=== PATIENT | female | born 1990 | race Hispanic/Latino ===

== ENCOUNTER 2018-09-25 12:25 | Emergency (ER) | payer MEDICAID, OTHER ==
[2018-09-25] MEDS ORDERED: ONDANSETRON HCL 4 MG/2 ML VIAL ONE ×2 (12:49→14:04)
[2018-09-25] MEDS ORDERED: FAMOTIDINE/PF 20 MG/2 ML VIAL IV ONE (12:49)
[2018-09-25] MEDS ORDERED: SODIUM CHLORIDE 0.9% 1000ML 1,000 ML IV ONE (12:49)
[2018-09-25 12:58] LABS: CREATININE 0.7 mg/dL (0.5-1.5); POTASSIUM 3.8 mmol/L (3.5-5.1)
[2018-09-25 13:03] LABS: BILIRUBIN,TOTAL 0.3 mg/dL (0.2-1.0); TOTAL PROTEIN, SERUM 8.3 g/dL (6.0-8.3)
[2018-09-25 13:04] LABS: APPEARANCE,URINE Clear (CLEAR); BILIRUBIN,URINE Negative (NEGATIVE); COLOR,URINE Yellow (YELLOW); GLUCOSE, URINE (UA) Negative (NEGATIVE); KETONES,URINE >=160 mg/dL (NEGATIVE); LEUKOCYTE ESTERASE ,URINE Negative (NEGATIVE); NITRATE,URINE Negative (NEGATIVE); OCCULT BLOOD,URINE Negative (NEGATIVE); PH,URINE 6.5 (5.0-8.0); PROTEIN,URINE POS 1+ (NEGATIVE)
[2018-09-25 13:15] LABS: HCG,QUAL RESULT NEGATIVE (NEGATIVE)
[2018-09-25 13:26] LABS: BASOPHILS % (AUTO) 0.4 % (0.0-5.0); EOSINOPHILS % (AUTO) 0.1 % (0.0-8.0); HEMATOCRIT 39.1 % (36-48); LYMPHOCYTES % (AUTO) 10.6 % (21.0-51.0); MEAN CORPUSCULAR HEMOGLOBIN 29.8 pg (27.0-33.0); MEAN CORPUSCULAR HGB CONC 33.8 g/dL (32.0-36.0); MEAN CORPUSCULAR VOLUME 88.1 fL (79-99); MONOCYTES % (AUTO) 2.3 % (3.0-13.0); NEUTROPHILS % (AUTO) 86.6 % (40.0-77.0); PLATELET COUNT (AUTO) 330 K/uL (130-400); RED BLOOD CELL COUNT(AUTO) 4.44 MIL/uL (4.00-5.50); RED CELL DISTRIBUTION WIDTH 12.1 % (11.0-15.5); WHITE BLOOD COUNT (AUTO) 13.9 K/uL (4.8-10.8)
[2018-09-25 13:48] LABS: BACTERIA,URINE Rare /HPF (None Seen); MUCUS,URINE Few LPF (None Seen); RBC,URINE 0-1 /HPF (0-1); SQUAMOUS EPITHELIAL CELL,UR Rare /HPF (0-2); WBC,URINE 0-1 /HPF (0-1)
[2018-09-25] MEDS ORDERED: HYOSCYAMINE SULFATE 0.125 MG TAB.SUBL SL ONE (14:05)
== END 2018-09-25 14:37 | disposition home or self-care (01) ==
LOC: EDH 12:25
DX: K52.9 Noninfective gastroenteritis and colitis, unspecified (principal)
CPT/HCPCS: 36415; 80053; 81001; 81025; 83690; 85025; 96361; 96374; 96375; 96376; 99284; J2405 ×2; J3490; J7030

== ENCOUNTER 2024-12-23 08:42 | Emergency (ER) | payer SELFPAY ==
[~2024-12-23] VITALS: Ht 157.5 cm; Wt 81.2 kg
--- NOTE | 2024-12-23 10:34 | ERN ---
ED Note History of Present Illness Stated Complaint: HEADACHE Chief Complaint: Headache Time Seen by MD: 09:39 Dictation: PATIENT IS A 34-YEAR-OLD FEMALE COMING IN TODAY WITH COMPLAINTS OF A GENERALIZED HEADACHE SHE HAS HAD FOR SEVERAL DAYS. SHE HAS HAD NAUSEA NO VOMITING DENIES FEVER CHILLS. NIH IS 0. NO PRIMARY CARE DOCTOR STATES SHE TOOK TYLENOL LAST NIGHT FOR PAIN AT 10:00 O'CLOCK IN THE EVENING. Allergies: Coded Allergies: No Known Drug Allergies (Unverified Allergy, Unknown, 12/23/24) Past Medical History Past Medical History: No Pertinent History Surgical History: History: Not Applicable RN Note Reviewed/Agreed w/PFSH: Yes Review of System Dictation CONSTITUTIONAL: NEGATIVE EXCEPT FOR HPI HEAD/FACE: NEGATIVE EXCEPT FOR HPI EENT: NEGATIVE EXCEPT FOR HPI RESPIRATORY: NEGATIVE EXCEPT FOR HPI GASTROINTESTINAL/ABDOMINAL: NEGATIVE EXCEPT FOR HPI GENITOURINARY: NEGATIVE EXCEPT FOR HPI MUSCULOSKELETAL: NEGATIVE EXCEPT FOR HPI INTEGUMENTARY: NEGATIVE EXCEPT FOR HPI NEUROLOGICAL/PSYCH: NEGATIVE EXCEPT FOR HPI HEADACHE HEMATOLOGIC/LYMPHATIC: NEGATIVE EXCEPT FOR HPI ALL SYSTEMS NEGATIVE, EXCEPT NOTED ABOVE. 13 POINT REVIEW OF SYSTEMS ASSESSED AND ALL NEGATIVE EXCEPT FOR ABOVE. Initial Vital Sign VS Vital Signs Date Time Temp Pulse Resp B/P (MAP) Pulse Ox O2 Delivery O2 Flow Rate FiO2 12/23/24 08:43 98.2 75 16 135/77 99 Room Air 12/23/24 10:09 0 21 Physical Exam Dictation VITAL SIGNS REVIEWED GENERAL APPEARANCE: ALERT, ORIENTED X 3, MILD ACUTE DISTRESS, WELL DEVELOPED, NOURISHED. HEAD AND FACE: NON-TRAUMATIC. EYES: PERRL, PINK CONJUNCTIVAS, EYELID NO TRAUMA, ANTERIOR CHAMBER WITH ARCUS SENILIS. EARS: PINNAS INTACT AND NO SIGNS OF TRAUMA OR ERYTHEMA EAR CANALS CLEAR AND NO DISCHARGE TM NO ERYTHEMA NOSE: NO DISCHARGE, NO BLEEDING. OROPHARYNX: MOUTH NORMAL, TONGUE PINK, PHARYNX CLEAR,NO ERYTHEMA, TONSILS NO EXUDATES, NO ABSCESSES NOTED, MUCOUS MEMBRANE MOIST NECK: SUPPLE, NON-TENDER, NO THYROMEGALY, NO MASSES, NO JVD, NO BRUITS BREAST:DEFERRED CHEST:NO TENDERNESS, NO CREPITUS, NO PARADOXICAL MOVEMENT, NO RETRACTIONS LUNGS:CLEAR, WELL-VENTILATED, SYMMETRIC, NO RALES, NO WHEEZING, NO RHONCHI, NO ST NIH RIDOR, GOOD BREATH SOUNDS BILATERALLY HEART: REGULAR RATE, REGULAR RHYTHM, NO MURMUR, NO GALLOPS VASCULAR: NO PERIPHERAL EDEMA, ABDOMEN: SOFT, POSITIVE BOWEL SOUNDS, NONDISTENDED, NO GUARDING, NONTENDER, NO REBOUND, NO MASSES NO HEPATOMEGALY, NO SPLENOMEGALY, NO TSE'S SIGN, NO HERNIAS. RECTAL: DEFERRED GENITAL: DEFERRED NEUROLOGICAL: NORMAL SPEECH, MOTOR FUNCTION INTACT, SENSORY FUNCTION INTACT NIH IS 0 MUSCULOSKELETAL: NECK NONTENDER, FULL RANGE OF MOTION, BACK NONTENDER, FULL RANGE OF MOTION, EXTREMITIES: NONTENDER, FULL RANGE OF MOTION SKIN: COLOR PINK, DRY, NO TURGOR, NO RASH, NO LACERATIONS, NO ABRASIONS, NO CONTUSIONS. LYMPHATIC: DEFERRED Results (Laboratory/Radiology) Labs Reviewed?: Yes ED Course ED Course Orders Procedure Category Date Status Time Acetaminophen 500mg PHA 12/23/24 Complete Tab (Tylenol 500mg T 11:00 Dexamethasone 4mg/Ml PHA 12/23/24 Complete 1ml Vial (Dexametha 11:00 Cyclobenzaprine Hcl PHA 12/23/24 Complete (Cyclobenzaprine Hcl 11:00 Current Medications Medications (Trade) Dose Ordered Sig/Tess Route PRN Reason Start Time Stop Time Status Last Admin Dose Admin Acetaminophen (TYLenol 500MG TAB) 1,000 mg ONCE ONCE PO 12/23/24 11:00 12/23/24 11:01 DC 12/23/24 10:54 Cyclobenzaprine HCl (Cyclobenzaprine HCl) 10 mg ONCE ONCE PO 12/23/24 11:00 12/23/24 11:01 DC 12/23/24 10:54 Dexamethasone Sodium Phosphate (dexaMETHasone 4MG/ML 1ML VIAL) 4 mg ONCE ONCE IM 12/23/24 11:00 12/23/24 11:01 DC 12/23/24 10:54 Vital Signs Date Time Temp Pulse Resp B/P (MAP) Pulse Ox O2 Delivery O2 Flow Rate FiO2 12/23/24 10:09 98.8 87 20 131/62 100 Room Air* 0 21 12/23/24 08:43 98.2 75 16 135/77 99 Room Air 1105, PATIENT WILL BE TREATED EMPIRICALLY FOR TENSION HEADACHE. SHE WILL BE DISCHARGED HOME WITH FIORICET AND WAS GIVEN A LIST OF DOCTORS TO FOLLOW UP OUTPATIENT. Medical Decision Making MDM MEDICAL DISCHARGE MAKING BASED ON EMPIRIC TREATMENT FOR ACUTE TENSION HEADACHE. PATIENT WILL BE DISCHARGED HOME WITH FIORICET AND NEUROLOGICALLY INTACT WITH [facility] OF 0. SHE WAS GIVEN A LIST OF THE LOCAL PRIMARY CARE DOCTORS ON STAFF TO FOLLOW UP DX & DISP Disposition: Discharge Departure Impression: Primary Impression: Tension headache Condition: Stable Scripts Butalb/Acetaminophen/Caffeine (Esgic 50-325-40 mg Tablet) 50 Mg-325 Mg-40 Mg Tablet 2 TAB PO Q4H for HEADACHE, #20 TAB 0 Refills TAKE TWO TABLETS BY MOUTH EVERY4 HOURS P.R.N. HEADACHE, MAXIMUM SIX TABLETS IN24 HOURS. Prov: BLANCA ESCOBEDO NP 12/23/24 Additional Instructions: FOLLOW-UP WITH PRIMARY CARE PROVIDER IN 1 TO 2 DAYS. TAKE MEDICATIONS DIRECTED HERE IN THE EMERGENCY ROOM. OKAY TO CONTINUE HOME MEDICATIONS UNLESS OTHERWISE DISCUSSED DURING YOUR VISIT IN THE EMERGENCY ROOM TODAY. RETURN TO YOUR NEAREST EMERGENCY ROOM IF SYMPTOMS WORSEN OR IF THERE IS NO IMPROVEMENT. CALL 911 IF YOU NEED IMMEDIATE ASSISTANCE. TAKE TYLENOL OR MOTRIN [id number] TER NEEDED AND IF NO CONTRAINDICATIONS ARE PRESENT. INCREASE ORAL HYDRATION. A WOUND CULTURE OR URINE CULTURE WAS ORDERED HERE IN THE EMERGENCY ROOM DEPARTMENT PLEASE FOLLOW-UP WITH PRIMARY CARE PROVIDER AND ADVISE THEM TO GET REPEAT PORTS FROM OUR FACILITY. IF YOU HAD ANY JOSIE WRAP/SPLINTS THAT WERE APPLIED HERE, PLEASE DO NOT REMOVE THEM UNTIL YOU SEE YOUR PRIMARY CARE OR SP ECIALTY. TAKE MEDICATIONS DIRECTED FOR YOUR HEADACHE. , FOLLOW UP WITH ONE OF THE DOCTORS ON THE LIST PROVIDED YOU IN THE NEXT 2-3 DAYS. Referrals: SELF,REFERRAL (PCP) Time of Disposition: 11:08 I have reviewed the case, and I agree with, Diagnosis and Plan BLANCA ESCOBEDO NP Dec 23, 2024 10:34
[2024-12-23] MEDS: CYCLOBENZAPRINE HCL 10 MG TABLET PO ONE (10:54)
[2024-12-23] MEDS: dexaMETHasone SOD PHOSPHATE 4 MG/ML 1ML VIAL IM ONE (10:54)
[2024-12-23] MEDS: acetaMINOPHEN 500 MG TABLET PO ONE (10:54)
[2024-12-23] MEDS ORDERED: BUTA-271 PO (11:09)
[2024-12-23 11:21] VITALS: BP 136/63; PULSE 86; RESP 20; TEMP 98.8; O2SAT 99
== END 2024-12-23 11:28 | disposition home or self-care (01) ==
LOC: EDH 08:42
DX: G44.209 Tension-type headache, unspecified, not intractable (principal)
CPT/HCPCS: 99283; 96372; J1100

== ENCOUNTER 2025-10-27 08:59 | Inpatient (IN) | payer SELFPAY ==
[~2025-10-27] VITALS: Ht 157.5 cm; Wt 82.6 kg
[2025-10-27] MEDS ORDERED: LIDOCAINE 5% TOPICAL PATCH TP STA (09:08)
[2025-10-27 09:34] LABS: IMMATURE GRANULOCYTE ABSOLUTE 0.01 K/uL (0-1); NUCLEATED RED BLOOD CELLS 0.0 % (0.0-0.19); PLATELET COUNT (AUTO) 270 K/uL (130-400); RED BLOOD CELL COUNT(AUTO) 4.47 MIL/uL (4.00-5.50); RED CELL DISTRIBUTION WIDTH 12.3 % (11.0-15.5); WHITE BLOOD COUNT (AUTO) 8.5 K/uL (4.8-10.8)
[2025-10-27 09:54] LABS: ERYTHROCYTE SEDIMENTATION RATE 13 MM/HR (0-20)
[2025-10-27 10:15] LABS: CREATINE KINASE, TOTAL 83.0 U/L (21-232); CREATININE 0.7 mg/dL (0.5-1.0); GLOMERULAR FILTR. RATE CALC 114.0 mL/min (>90); GLUCOSE,RANDOM 99.0 mg/dL (70-105); SODIUM SERUM 139.0 mmol/L (136-145); UREA NITROGEN, BLOOD 11.0 mg/dL (7-18)
--- NOTE | 2025-10-27 10:24 | ERN ---
ED Note History of Present Illness Stated Complaint: LEFT LOWER EXTREMITY Chief Complaint: Lower Extremity Pain/Injury Time Seen by MD: 09:00 Dictation: 35-year-old female with no past medical history presenting to the emergency department with left lower extremity pain and swelling, patient reports that few weeks ago back she hit herself with the metal cleaning broom, and symptoms have been getting worsens was seen here for the same a few days ago however the symptoms have now worsened. Allergies: Coded Allergies: No Known Drug Allergies (Unverified Allergy, Unknown, 12/23/24) Home Meds Active Scripts Naproxen (Naproxen) 500 Mg Tablet, 1 TAB PO BID for pain for 7 Days, #14 TAB 0 Refills Prov:SINAN KENNY MD 10/18/25 Methocarbamol (Robaxin) 750 Mg Tab, 1 TAB PO BID for 7 Days, #14 TAB 0 Refills Prov:SINAN KENNY MD 10/18/25 Butalb/Acetaminophen/Caffeine (Esgic 50-325-40 mg Tablet) 50 Mg-325 Mg-40 Mg Tablet, 2 TAB PO Q4H for HEADACHE, #20 TAB 0 Refills TAKE TWO TABLETS BY MOUTH EVERY4 HOURS P.R.N. HEADACHE, MAXIMUM SIX TABLETS IN24 HOURS. Prov:BLANCA ESCOBEDO 12/23/24 Past Medical History Past Medical History: No Pertinent History Surgical History: History: Not Applicable Review of System Dictation Constitutional: Negative for fever,chills, and weight loss Eyes: Negative for injury, pain,redness, and discharge ENT: Negative for injury,pain or swelling Cardiovascular: Negative for chest pain, palpitations, and edema Respiratory: Negative for shortness of breath, cough, and wheezing, Abdomen/GI: Negative for abdominal pain, nausea, vomiting, diarrhea, and constipation Back: Negative for injury and pain : Negative for injury, bleeding and discharge MS/Extremity: Per HPI Skin: Per HPI Neuro: Negative for headache, weakness, numbness, tingling, and seizure Psych: Negative for suicide ideation, homicidal ideation, and hallucinations Initial Vital Sign VS Vital Signs Date Time Temp Pulse Resp B/P (MAP) Pulse Ox O2 Delivery O2 Flow Rate FiO2 10/27/25 09:01 97.5 85 16 152/85 99 Room Air 0 10/27/25 09:30 21 Physical Exam Dictation General: awake, alert, NAD Head/Face: Normocephalic, atraumatic Eyes: PERRL, EOMI, vision at baseline ENT: oral cavity clear, TMs clear, no signs of infection Neck: Trachea midline, supple, no nuchal rigidity Cardiovascular: RRR, normal S1/S2, No MRGs, no JVD Respiratory: CTAB, no respiratory distress, No rales or wheezes Abdomen: Soft, non-tender, non-distended, normal bowel sounds, no guarding or rebound. Skin: Warm, dry, normal turgor, no rash, erythema to the left lower extremity MS/Extremity: Pulses equal, no cyanosis, neurovascular intact, FROM , left lower extremity is edematous and swollen, 2+ pulses compartments soft Neuro: COAx4, GCS 15, strength 5/5, CN 2-12 intact, normal cerebellar exam, normal gait, Psych: Normal behavior, mood, and affect normal Results (Laboratory/Radiology) Laboratory/Radiology Laboratory Tests Test 10/27/25 09:25 10/27/25 09:45 White Blood Count 8.5 K/uL (4.8-10.8) Red Blood Count 4.47 MIL/uL (4.00-5.50) Hemoglobin 13.2 g/dL (12.0-16.0) Hematocrit 40.6 % (36-48) Mean Corpuscular Volume 90.8 fL (79-99) Mean Corpuscular Hemoglobin 29.5 pg (27.0-33.0) Mean Corpuscular Hemoglobin Concent 32.5 g/dL (32.0-36.0) Red Cell Distribution Width 12.3 % (11.0-15.5) Platelet Count 270 K/uL (130-400) Mean Platelet Volume 8.8 fL (7.5-10.5) Immature Granulocyte % (Auto) 0.1 % (0-1) Neutrophils (%) (Auto) 68.5 % (40.0-77.0) Lymphocytes (%) (Auto) 24.0 % (21.0-51.0) Monocytes (%) (Auto) 3.7 % (3.0-13.0) Eosinophils (%) (Auto) 2.9 % (0.0-8.0) Basophils (%) (Auto) 0.8 % (0.0-5.0) Neutrophils # (Auto) 5.8 K/uL (1.8-7.7) Lymphocytes # (Auto) 2.0 K/uL (1.0-4.8) Monocytes # (Auto) 0.3 K/uL (0.1-1.0) Eosinophils # (Auto) 0.25 K/uL (0.00-0.70) Basophils # (Auto) 0.07 K/uL (0.00-0.20) Absolute Immature Granulocyte (auto 0.01 K/uL (0-1) Nucleated Red Blood Cells 0.0 % (0.0-0.19) Erythrocyte Sedimentation Rate 13 MM/HR (0-20) Sodium Level 139 mmol/L (136-145) Potassium Level 4.1 mmol/L (3.5-5.1) Chloride Level 106 mmol/L (101-111) Carbon Dioxide Level 25 mmol/L (21-32) Blood Urea Nitrogen 11 mg/dL (7-18) Creatinine 0.7 mg/dL (0.5-1.0) Glomerular Filtration Rate Calc 114 mL/min (>90) Random Glucose 99 mg/dL (70-105) Lactic Acid Level 1.2 mmol/L (0.8-2.5) Total Calcium 8.6 mg/dL (8.5-10.1) Total Creatine Kinase 83 U/L (21-232) Troponin I High Sensitivity 21 ng/L (4-50) C-Reactive Protein, Quantitative 12.40 mg/L (0.5-3.0) H Labs Reviewed?: Yes EKG: (+) NSR, (+) rhythm, (+) nonspecific ST T wave chg, (+) unchanged ED Course ED Course Orders Procedure Category Date Status Time Urinalysis Profile LAB 10/27/25 Logged 09:08 ,Urine Test LAB 10/27/25 Logged 09:08 Lidocaine (Lidoderm PHA 10/27/25 Complete Patch 5%) 09:08 Ketorolac PHA 10/27/25 Complete Tromethamine 30mg/Ml 09:30 Erythrocyte Sed Rate LAB 10/27/25 Complete 09:15 Blood Cult DARYA 10/27/25 In Process 09:15 Cbc With Differential LAB 10/27/25 Complete 09:15 Ceftriaxone 2gm Vial PHA 10/27/25 Complete (Rocephin 2gm Inj) 09:15 Vancomycin 1g/250ml PHA 10/27/25 Complete Kit (Vancomycin 1g/2 09:15 Us Venous Doppler US 10/27/25 Resulted Unilateral 09:15 Morphine 4mg Syg PHA 10/27/25 Complete (Morphine 4mg Syg) 09:17 Ondansetron 4mg Inj PHA 10/27/25 Complete (Zofran 4mg Inj) 09:17 Basic Metabolic Panel LAB 10/27/25 Complete 09:37 Creatine Kinase, Total LAB 10/27/25 Complete 09:37 Crp Quantitative LAB 10/27/25 Complete 09:37 Lactic Acid LAB 10/27/25 Complete 09:37 Pt And Ptt LAB 10/27/25 Logged 09:49 12 Lead Ekg Tracing- EKG 10/27/25 Logged Technical 10:25 Troponin I High LAB 10/27/25 Complete Sensitivity 10:25 Enoxaparin Sodium 80 PHA 10/27/25 Complete Mg/0.8 Ml (Lovenox 10:25 Current Medications Medications (Trade) Dose Ordered Sig/Tess Route PRN Reason Start Time Stop Time Status Last Admin Dose Admin Ceftriaxone Sodium (Rocephin 2gm Inj) 2 gm ONCE STAT IVPB 10/27/25 09:15 10/27/25 09:18 DC 10/27/25 09:52 Enoxaparin Sodium (Lovenox 80mg) 80 mg ONCE STAT SQ 10/27/25 10:25 10/27/25 10:29 DC Ketorolac Tromethamine (toRADol) 30 mg ONCE ONCE IM 10/27/25 09:30 10/27/25 09:16 DC Lidocaine (Lidoderm Patch 5%) 1 patch ONCE STAT TP 10/27/25 09:08 10/27/25 09:16 DC Morphine Sulfate (morPHINE 4MG SYG) 4 mg ONCE STAT IVP 10/27/25 09:17 10/27/25 09:19 DC 10/27/25 09:52 Ondansetron HCl (zoFRAN 4MG INJ) 4 mg ONCE STAT IVP 10/27/25 09:17 10/27/25 09:19 DC 10/27/25 09:51 Vancomycin HCl (Vancomycin 1g/ 250ml Kit) 1 gm ONCE STAT IV 10/27/25 09:15 10/27/25 09:19 DC 10/27/25 10:53 Vital Signs Date Time Temp Pulse Resp B/P (MAP) Pulse Ox O2 Delivery O2 Flow Rate FiO2 10/27/25 09:30 98.4 72 18 145/89 100 Room Air* 0 21 10/27/25 09:01 97.5 85 16 152/85 99 Room Air 0 Medical Decision Making MDM MDM: Differential diagnosis: Rationale: Tests considered and ordered secondary to shared decision making include: labs, ECG and radiology Previous outside records reviewed: Old ER visits. Risk of complication and/or morbidity or mortality of patient management: None Medications-Per medication reconciliation Need for hospitalization: Patient does meet criteria for hospitalization. Need for emergency major/minor surgery: No There are no social concerns with this patient. Prescription drug management Prescriptions will include symptomatic care Patient's prior external medical records from other ER visits were reviewed by me as indicated. Prior testing and results from previous visits were reviewed. Prior tests were taken into account with medical decision making and resource utilization, independent historian/historians were used to obtain complete medical history. I independently interpreted the test that were performed, results were reviewed by me and considered findings on radiology if ordered. Medical management and examination interpretation discussions were had by me w ith other qualified healthcare professionals as indicated for the patient's care. 35-year-old female with left lower extremity DVT, we will placed on Lovenox and admit further care and evaluation currently no chest pain or shortness of breath. Critical Care Note Comment(s) Total critical care time was 33 minutes. Excluding time for procedures. Ma nagement of critically ill patient with concern for acute decompensation. Management included interpretation of laboratory values and imaging, hemodynamics, time for consultation with consultants and admitting physician. DX & DISP Disposition: Inpatient Departure Impression: Primary Impression: Left leg DVT Condition: Stable Referrals: SELF,REFERRAL (PCP) RAE ANTUNEZ MD Oct 27, 2025 10:24
[2025-10-27] MEDS: VANCOMYCIN KIT 1 GM/250 ML IV.KIT IV STA (10:53)
--- NOTE | 2025-10-27 11:01 | HMCIMG ---
EXAM: US for Deep Venous Thrombosis, right Lower Extremity. CLINICAL HISTORY: Leg Pain and Swelling TECHNIQUE: Real-time ultrasound scan of the veins of the right lower extremity with color Doppler flow, spectral waveform analysis and compression. COMPARISON: None provided. FINDINGS: DEEP VEINS: The common femoral, superficial femoral, and popliteal veins are echolucent and compressible. There is normal color Doppler flow throughout. The visualized calf veins appear patent. Superficial thrombophlebitis within the greater saphenous vein. SOFT TISSUES: No popliteal fossa cyst or other abnormalities. IMPRESSION: 1. No deep venous thrombosis in the right lower extremity. 2. Superficial thrombophlebitis within the greater saphenous vein. The clinical team was made aware at the time of the examination. /Pete
--- NOTE | 2025-10-27 11:24 | HP ---
[facility] HISTORY AND PHYSICAL Date of Service: Oct 27, 2025 Time of Service: 11:24 HISTORY OF PRESENT ILLNESS: This is a female with no significant past medical history who presented to the hospital secondary to above pain and swelling in the left lower extremity. The patient states around two weeks ago she was spinning in the trauma to the left inner thigh while she was straining a broom. The broom had a metal wire which hit her left thigh. She initially had some ecchymosis on the left thigh and thereafter developed a swelling to the thigh area. She is able to ambulate and denies any falls with ambulation. She denies any symptoms on her right leg and denies sustaining any trauma to the right leg. She denied any melena, hematochezia, hematemesis. Denied any chest pain, shortness of breath, fever, chills. She initially seen in [facility] [place] [facility] one week ago and was diagnosed with piriformis syndrome. Her symptoms persisted and thereafter patient came to the hospital for further evaluation. Patient did receive dose of tetanus last month. Patient's labs were notable for white count of 8.5, hemoglobin was 13.2, platelet count was 270 K, sodium was 139, potassium was 4.1, creatinine was 0.7, troponin was negative x1, lactic acid was 1.2 Patient had venous Doppler which showed no evidence of DVT in the right lower extremity. There was evidence of superficial thrombophlebitis in the greater saphenous vein in the left lower extremity. Patient received Lovenox 80 mg of the ER REVIEW OF SYSTEMS CONSTITUTIONAL: Denies fevers, chills, or night sweats. No unintentional weight loss reported. NEUROLOGICAL: Denies headache, amaurosis fugax, motor weakness, sensory deficit, vertigo/spinning sensation, gait abnormalities, or tremors. ENT: No hearing loss, otalgia, otorrhea, rhinitis, rhinorrhea, hoarseness, or sore throat. CARDIOVASCULAR: Denies any exertional angina, dyspnea on exertion, orthopnea, paroxysmal nocturnal dyspnea, palpitations, life-threatening arrhythmias, claudication. PULMONARY: Denies any shortness of breath, cough, phlegm/sputum, hemoptysis, pleuritic chest pain. SLEEP: Denies morning headaches, daytime somnolence or napping. Denies difficulty falling asleep, staying asleep, waking from sleep. Denies knowledge of snoring. GASTROINTESTINAL: Denies any type of dysphagia to either liquids or solids. Denies nausea, vomiting, pyrosis, early satiety, abdominal pain, diarrhea, constipation, or changes in stool consistency or caliber. Denies coffee-ground emesis, hematemesis, hematochezia, or melanotic stools. GENITOURINARY: Denies frequency, urgency, nocturia, hematuria or incontinence (Storage/Irritative symptoms.) Low urinary stream, straining to void, urinary intermittency or hesitancy, splitting of the voiding stream, terminal dribbling. ENDOCRINOLOGIC: Denies polyuria, polydipsia, polyphagia or heat/cold intolerances. HEMATOLOGIC: Denies thrombophilia/previous clots, or coagulopathy/bleeding disorders. ONCOLOGIC: Denies personal history of malignancy. DERMATOLOGIC: Denies rashes or pruritus. PSYCHIATRIC: Denies any suicidal or homicidal ideation. Denies hallucinations. Musculoskeletal: Pain and swelling in the left lower extremity PAST MEDICAL HISTORY: [ ] PAST SURGICAL HISTORY: [ ] PAST SOCIAL HISTORY: [ ] FAMILY HISTORY: [ ] Coded Allergies: No Known Drug Allergies (Unverified Allergy, Unknown, 12/23/24) PHYSICAL EXAM GENERAL APPEARANCE: The patient is awake, alert, and oriented, in no acute cardiopulmonary distress. NEUROLOGICAL: Cranial nerves II-XII grossly intact. Motor is 5/5 in bilateral upper and lower extremities proximal to distal. No sensory deficits. HEENT: Face is symmetric. Pupils are equal and reactive. Extraocular movements are intact. NECK: Supple. No JVD. No thyromegaly. No submental, submandibular, pre- /postauricular, occipital or supraclavicular lymphadenopathy. CHEST: Normal chest expansion. No Telemetry. LUNGS: Absence of any rales, rhonchi or any wheezing. CARDIOVASCULAR: Regular. S1 and S2 normal. No appreciable rubs, murmurs or gallops. ABDOMEN: Soft, nontender, and nondistended. There is no rebound, voluntary guarding, or rigidity. : Deferred. No [place]. EXTREMITIES: There is a small open wound in the left inner thigh. There is some induration around the inner thigh area. There is swelling in the left lower extremity with 1+ pitting edema. Right leg looks okay SKIN: No skin breakdown. Vital Sign (Last 24 Hours) 10/27/25 09:30 Temp 98.4 Pulse 72 Resp 18 B/P (MAP) 145/89 Pulse Ox 100 O2 Delivery Room Air* O2 Flow Rate 0 FiO2 21 LABS: Laboratory: Test 10/27/25 09:45 10/27/25 09:25 Range/Units Sodium Level 139 136-145 mmol/L Potassium Level 4.1 3.5-5.1 mmol/L Chloride Level 106 101-111 mmol/L Carbon Dioxide Level 25 21-32 mmol/L Blood Urea Nitrogen 11 7-18 mg/dL Creatinine 0.7 0.5-1.0 mg/dL Glomerular Filtration Rate Calc 114 >90 mL/min Random Glucose 99 70-105 mg/dL Lactic Acid Level 1.2 0.8-2.5 mmol/L Total Calcium 8.6 8.5-10.1 mg/dL Total Creatine Kinase 83 21-232 U/L Troponin I High Sensitivity 21 4-50 ng/L C-Reactive Protein, Quantitative 12.40 H 0.5-3.0 mg/L White Blood Count 8.5 4.8-10.8 K/uL Red Blood Count 4.47 4.00-5.50 MIL/uL Hemoglobin 13.2 12.0-16.0 g/dL Hematocrit 40.6 36-48 % Mean Corpuscular Volume 90.8 79-99 fL Mean Corpuscular Hemoglobin 29.5 27.0-33.0 pg Mean Corpuscular Hemoglobin Concent 32.5 32.0-36.0 g/dL Red Cell Distribution Width 12.3 11.0-15.5 % Platelet Count 270 130-400 K/uL Mean Platelet Volume 8.8 7.5-10.5 fL Immature Granulocyte % (Auto) 0.1 0-1 % Neutrophils (%) (Auto) 68.5 40.0-77.0 % Lymphocytes (%) (Auto) 24.0 21.0-51.0 % Monocytes (%) (Auto) 3.7 3.0-13.0 % Eosinophils (%) (Auto) 2.9 0.0-8.0 % Basophils (%) (Auto) 0.8 0.0-5.0 % Neutrophils # (Auto) 5.8 1.8-7.7 K/uL Lymphocytes # (Auto) 2.0 1.0-4.8 K/uL Monocytes # (Auto) 0.3 0.1-1.0 K/uL Eosinophils # (Auto) 0.25 0.00-0.70 K/uL Basophils # (Auto) 0.07 0.00-0.20 K/uL Absolute Immature Granulocyte (auto 0.01 0-1 K/uL Nucleated Red Blood Cells 0.0 0.0-0.19 % Erythrocyte Sedimentation Rate 13 0-20 MM/HR Current Medications Medications (Trade) Dose Ordered Sig/Tess Route PRN Reason Start Time Stop Time Status Last Admin Dose Admin Ceftriaxone Sodium (Rocephin 2gm Inj) 2 gm ONCE STAT IVPB 10/27/25 09:15 10/27/25 09:18 DC 10/27/25 09:52 2 GM Enoxaparin Sodium (Lovenox 80mg) 80 mg ONCE STAT SQ 10/27/25 10:25 10/27/25 10:29 DC Lidocaine (Lidoderm Patch 5%) 1 patch ONCE STAT TP 10/27/25 09:08 10/27/25 09:16 DC Morphine Sulfate (morPHINE 4MG SYG) 4 mg ONCE STAT IVP 10/27/25 09:17 10/27/25 09:19 DC 10/27/25 09:52 4 MG Ondansetron HCl (zoFRAN 4MG INJ) 4 mg ONCE STAT IVP 10/27/25 09:17 10/27/25 09:19 DC 10/27/25 09:51 4 MG Vancomycin HCl (Vancomycin 1g/ 250ml Kit) 1 gm ONCE STAT IV 10/27/25 09:15 10/27/25 09:19 DC 10/27/25 10:53 1 GM DIAGNOSTICS / RADIOLOGY: Superficial thrombophlebitis in the greater superficial vein ASSESSMENT: Left symptomatic superficial thrombophlebitis of the greater saphenous vein secondary to trauma POA Small open wound in left inner thigh secondary to trauma Possible cellulitis in the left inner thigh PLAN: - patient to be admitted to medical-surgical unit with telemetry -in reference to left-sided superficial thrombophlebitis. Patient will continue on Lovenox 1 mg per kg b.i.d. in setting of symptomatic superficial thrombophlebitis. We will request consultation with Hematology. -obtain a x-ray of the left thigh. -continue on the patient on Rocephin. If cultures remain negative we will stop antibiotics. Check a procalcitonin -further orders per hospitalization course Advanced Care Planning Which of the following were discussed: Hospice care: Yes __ No _x_ Therapeutic options: Yes __ No __ Advance directives: Yes __ No __ Other discussions: Discussed with who?: patient (Patient, family or surrogates) Voluntary nature of this service was explained to the patient? Yes _x_ No __ Amount of time spent: 25 minutes HOLDEN Lynch MD, MD Oct 27, 2025 11:24
[2025-10-27] MEDS ORDERED: MAGNESIUM 2GM PREMIX 50ML 50 ML IV PRN (11:30)
[2025-10-27] MEDS ORDERED: PoTASSium chl 10% ELIXIR 20MEQ 20 MEQ/15 ML UDCUP PO PRN (11:30)
[2025-10-27] MEDS ORDERED: PoTASSium chloRIDE 20MEQ ER 20 MEQ ERTAB PO PRN (11:30)
[2025-10-27] MEDS: ENOXAPARIN SODIUM 80 MG/0.8 ML SQ STA (11:32)
[2025-10-27 12:03] LABS: INR 1.0 (0.85-1.15)
--- NOTE | 2025-10-27 12:25 | HMCIMG ---
EXAM: CR left Femur, 4 View. CLINICAL HISTORY: LEFT thigh trauma. Rule out frcature COMPARISON: None provided. FINDINGS: BONES: No acute fracture or aggressive appearing osseous lesion. JOINTS: No dislocation. SOFT TISSUES: The soft tissues are unremarkable. IMPRESSION: No acute osseous abnormality. /Orgas
--- NOTE | 2025-10-27 12:38 | NUR ---
REPORT GIVEN TO ANNMARIE AT THIS TIME.
[2025-10-27 13:00] VITALS: O2SAT 100
[2025-10-27 13:30] VITALS: BP 134/94; PULSE 72; RESP 18; TEMP 98.4
--- NOTE | 2025-10-27 14:17 | NUR ---
DCP:HOME Pt currently lives at home with her children. Pt receives assistance with housing and $784 in SNAP. Pt denies any dme, home health, or provider services. Pt states that she is able to complete ADLs independently. Pt just registered with the indigent clinic and has an appointment for November 15. At [place] pt will want to go home and family can assist with transportation.
--- NOTE | 2025-10-27 15:32 | NUR ---
[facility] Consult: Patient assessed by wound healing team. See wound assessment. Assessment and recommendations provided to primary nurse. Education provided.
--- NOTE | 2025-10-27 15:50 | HMCIMG ---
Exam: Left lower extremity arterial ultrasound. 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 Dorsalis pedis artery: 70 cm/s. Waveform: Triphasic IMPRESSION: 1. No acute arterial abnormality of the left lower extremity. Normal velocities and normal triphasic waveform pattern throughout /[place]
[2025-10-27 16:06] VITALS: BP 112/64; PULSE 75; RESP 18; TEMP 98.6
--- NOTE | 2025-10-27 17:18 | CONS ---
CONSULT REFERRING PHYSICIAN: Dr Schuster REASON FOR CONSULT: Superficial thrombophlebitis within the greater saphenous vein. HISTORY HPI: This is a female with no significant past medical history who presented to the hospital secondary to above pain and swelling in the left lower extremity. The patient states around two weeks ago she was spinning in the trauma to the left inner thigh while she was straining a broom. The broom had a metal wire which hit her left thigh. She initially had some ecchymosis on the left thigh and thereafter developed a swelling to the thigh area. She is able to ambulate and denies any falls with ambulation. She denies any symptoms on her right leg and denies sustaining any trauma to the right leg. She denied any melena, hematochezia, hematemesis. Denied any chest pain, shortness of breath, fever, chills. She initially seen in [facility] one week ago and was diagnosed with piriformis syndrome. Her symptoms persisted and thereafter patient came to the hospital for further evaluation. Patient did receive dose of tetanus last month. Patient's labs were notable for white count of 8.5, hemoglobin was 13.2, platelet count was 270 K, sodium was 139, potassium was 4.1, creatinine was 0.7, troponin was negative x1, lactic acid was 1.2 Patient had venous Doppler which showed no evidence of DVT in the right lower extremity. There was evidence of superficial thrombophlebitis in the greater saphenous vein in the left lower extremity. Patient received Lovenox 80 mg of the ER PMH: Noncontributory PSH: noncontributory SH: noncontributory FH: noncontributory ALLERGIES: Coded Allergies: No Known Drug Allergies (Unverified Allergy, Unknown, 12/23/24) CURRENT MEDS: Current Medications Medications (Trade) Dose Ordered Sig/Tess Route PRN Reason Start Time Stop Time Status Last Admin Famotidine (Pepcid 20mg Vial) 20 mg BID IV 10/27/25 21:00 11/26/25 20:59 Acetaminophen (TYLenol 500MG TAB) 500 mg Q6H PRN PO MILD PAIN (1-3) 10/27/25 11:30 11/26/25 11:29 Potassium Chloride 100 ml @ 100 mls/hr AD PRN IV POTASSIUM PROTOCOL 10/27/25 11:30 11/26/25 11:29 Potassium Chloride (KCl 10% Elixir 20meq/15ml) 20 meq AD PRN PO POTASSIUM PROTOCOL 10/27/25 11:30 11/26/25 11:29 Potassium Chloride (K-Dur/Klor-Con 20meq) 20 meq AD PRN PO POTASSIUM PROTOCOL 10/27/25 11:30 11/26/25 11:29 Magnesium Sulfate 50 ml @ 0 mls/hr PROTOCOL PRN IV hypomagnesemia 10/27/25 11:30 11/26/25 11:29 Ceftriaxone Sodium (Rocephin 2gm Inj) 2 gm Q24H IVPB 10/28/25 09:00 11/07/25 08:59 Enoxaparin Sodium (Lovenox 80mg) 80 mg Q12H SQ 10/27/25 23:30 11/26/25 23:29 Morphine Sulfate (morPHINE 2MG SYG) 2 mg Q6H PRN IVP SEVERE PAIN (7-10) 10/27/25 14:00 11/03/25 13:59 REVIEW OF SYSTEMS CONSTITUTIONAL: FEVER; No FEVER; SWEATS; No SWEATS; CHILLS; No CHILLS, No WEIGHT LOSS HEENT: JAUNDICE; No JAUNDICE; SORE THROAT; No SORE THROAT; SINUS PRESSURE; No SINUS PRESSURE, No VISION CHANGES RESPIRATORY: COUGH; No COUGH; CHEST PAIN; No CHEST PAIN, No SHORTNESS OF BREATH, No HEMOPTYSIS CARDIOVASCULAR: PALPATIONS; No PALPATIONS, No DYSPNEA ON EXERTION, No SYNCOPE GASTROINTESTINAL: No NAUSEA, No VOMITING, No DIARRHEA, No DYSPHAGIA, No CONSTIPATION, No ABDOMINAL PAIN, No HEMATEMESIS, No HEMATOCHEZIA, No MELENA GENITOURINARY: No DYSURIA, No HEMATURIA HEMATOLOGIC/LYMPHATIC: No EASY BRUISING, No CERVICAL ADENOPATHY, No AXILLARY ADENOPATHY, No INGUINAL ADENOPATHY MUSCULOSKELETAL: BONE PAIN; No BONE PAIN, No MASS; NORMAL RANGE OF MOTION; No NORMAL RANGE OF MOTION SKIN/BREASTS: BREAST MASS; No BREAST MASS, No NIPPLE INVERSION, No RASH NEUROLOGICAL: No WEAKNESS-EXTREMETIES, No DIPLOPIA, No NUMBNESS, No TINGLING PSYCHOLOGICAL: No SUICIDAL IDEATION PHYSICAL EXAM VITALS: Vital Signs Date Time Temp Pulse Resp B/P (MAP) Pulse Ox O2 Delivery O2 Flow Rate FiO2 10/27/25 16:06 98.6 75 18 112/64 100 Room Air 12/4/25 13:00 0 21 GENERAL: ALERT, ORIENTED, APPEARS-NO ACUTE DISTRESS EYES: SCLERAE ANICTERIC, PUPILS EQUAL/REACTIVE, EXTRAOCULAR MUSCLES INTCT ENT/NECK: ORAL MUCOSA W/O LESIONS, OROPHARYNX IS CLEAR, NECK SUPPLE W/O MASSES RESPIRATORY: LUNGS CLEAR-AUSC/PERCUS CARDIOVASCULAR: REGULAR RATE; No REGULAR RATE; REGULAR RHYTHM; No REGULAR RHYTHM GASTROINTESTINAL: ABDOMEN IS SOFT; No ABDOMEN IS SOFT, No TENDER, No DISTENDED, No HEPATOSPLENOMEGALY; BOWEL SOUNDS PRESENT; No PALPABLE MASSES HEMATOLOGY/LYMPHATIC: No CERVICAL ADENOPATHY, No SUPRACLAVICULR ADENOPATHY, No AXILLARY ADENOPATHY, No INGUINAL ADENOPATHY MUSCULOSKELETAL: EDEMA (left thigh erythema and edema with possible insect bite ) SKIN/BREASTS: MASSES; No MASSES, No RASH, No HIVES NEUROLOGICAL: GROSSLY INTACT PSYCHOLOGICAL: MINI MENTAL ASSMT INTACT DIAGNOSTIC STUDIES [facility] [address] [place] [id number] IMAGING REPORT Addendum PATIENT: PADDY JOHNSON MR#: [id number] : 1990 SEX: F AGE: 35 LOCATION: [facility] ORDER 7 STATUS: ADM IN REPORT#: [id number] SERVICE 4 REASON: r/o dvt ORDERING PHYSICIAN: RAE ANTUNEZ MD PROCEDURE: VENOUS UNI - US VENOUS DOPPLER UNILATERAL ADDENDUM REPORT ADDENDUM: EXAM: US for Deep Venous Thrombosis, left Lower Extremity. CLINICAL HISTORY: Leg Pain and Swelling TECHNIQUE: Real-time ultrasound scan of the veins of the left lower extremity with color Doppler flow, spectral waveform analysis and compression. COMPARISON: None provided. FINDINGS: DEEP VEINS: The common femoral, superficial femoral, and popliteal veins are echolucent and compressible. There is normal color Doppler flow throughout. The visualized calf veins appear patent. Superficial thrombophlebitis within the greater saphenous vein. SOFT TISSUES: No popliteal fossa cyst or other abnormalities. IMPRESSION: 1. No deep venous thrombosis in the left lower extremity. 2. Superficial thrombophlebitis within the greater saphenous vein. The clinical team was made aware at the time of the examination. /[place] EXAM: US for Deep Venous Thrombosis, right Lower Extremity. CLINICAL HISTORY: Leg Pain and Swelling TECHNIQUE: Real-time ultrasound scan of the veins of the right lower extremity with color Doppler flow, spectral waveform analysis and compression. COMPARISON: None provided. FINDINGS: DEEP VEINS: The common femoral, superficial femoral, and popliteal veins are echolucent and compressible. There is normal color Doppler flow throughout. The visualized calf veins appear patent. Superficial thrombophlebitis within the greater saphenous vein. SOFT TISSUES: No popliteal fossa cyst or other abnormalities. IMPRESSION: 1. No deep venous thrombosis in the right lower extremity. 2. Superficial thrombophlebitis within the greater saphenous vein. The clinical team was made aware at the time of the examination. /[place] DICTATED BY: SHAVON RODRIGUEZ Jr., MD DATE: 10/27/25 1413 ELECTRONICALLY SIGNED BY: DATE: EXAM: US for Deep Venous Thrombosis, right Lower Extremity. CLINICAL HISTORY: Leg Pain and Swelling TECHNIQUE: Real-time ultrasound scan of the veins of the right lower extremity with color Doppler flow, spectral waveform analysis and compression. COMPARISON: None provided. FINDINGS: DEEP VEINS: The common femoral, superficial femoral, and popliteal veins are echolucent and compressible. There is normal color Doppler flow throughout. The visualized calf veins appear patent. Superficial thrombophlebitis within the greater saphenous vein. SOFT TISSUES: No popliteal fossa cyst or other abnormalities. IMPRESSION: 1. No deep venous thrombosis in the right lower extremity. 2. Superficial thrombophlebitis within the greater saphenous vein. The clinical team was made aware at the time of the examination. /[place] DICTATED BY: SHAVON RODRIGUEZ Jr., MD DATE: 10/27/25 1200 ELECTRONICALLY SIGNED BY: SHAVON RODRIGUEZ Jr., MD DATE: 10/27/[address] [place] [id number] IMAGING REPORT Signed PATIENT: PADDY JOHNSON MR#: [id number] : 1990 SEX: F AGE: 35 LOCATION: [facility]BH ORDER 23 STATUS: [facility] REPORT#: [id number] SERVICE 111 REASON: LLE arterial doppler ORDERING PHYSICIAN: HOLDEN SCHUSTER MD PROCEDURE: ART U LE - US ARTERIAL UNILA LOW EXT DUPL Exam: Left lower extremity arterial ultrasound. 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 Dorsalis pedis artery: 70 cm/s. Waveform: Triphasic IMPRESSION: 1. No acute arterial abnormality of the left lower extremity. Normal velocities and normal triphasic waveform pattern throughout /[place] DICTATED BY: AGUILAR BELCHER MD DATE: 10/27/251649 ELECTRONICALLY SIGNED BY: AGUILAR BELCHER MD DATE: 10/27/251649 [facility] [address] [place] [id number] IMAGING REPORT Signed PATIENT: PADDY JOHNSON MR#: [id number] : 1990 SEX: F AGE: 35 LOCATION: [facility] ORDER 23 STATUS: ADM IN REPORT#: [id number] SERVICE 111 REASON: LEFT thigh trauma. Rule out frcature ORDERING PHYSICIAN: HOLDEN SCHUSTER MD PROCEDURE: FEM LT 2 - FEMUR 2 VW LEFT EXAM: CR left Femur, 4 View. CLINICAL HISTORY: LEFT thigh trauma. Rule out frcature COMPARISON: None provided. FINDINGS: BONES: No acute fracture or aggressive appearing osseous lesion. JOINTS: No dislocation. SOFT TISSUES: The soft tissues are unremarkable. IMPRESSION: No acute osseous abnormality. /[place] DICTATED BY: SHAVON RODRIGUEZ Jr., MD DATE: 10/27/251323 ELECTRONICALLY SIGNED BY: SHAVON RODRIGUEZ Jr., MD DATE: 10/27/25 132 IMPRESSION Left symptomatic superficial thrombophlebitis of the greater saphenous vein secondary to trauma POA Small open wound in left inner thigh secondary to trauma Possible cellulitis in the left inner thigh PLAN superficial thrombophlebitis of the greater saphenous vein - no need to treat recommend warm compress, ASA consider alternative to OCP continue antibiotics MASON HERNÁNDEZ Oct 27, 2025 17:18
[2025-10-27 20:00] VITALS: BP 126/71; PULSE 78; RESP 17; TEMP 98.3; O2SAT 100
[2025-10-27] MEDS: FAMOTIDINE 20MG VIAL IV SCH (20:40)
[2025-10-27] MEDS: ENOXAPARIN SODIUM 80 MG/0.8 ML SQ SCH (23:38)
[2025-10-28] VITALS: BP 124/75; PULSE 67; RESP 17; TEMP 98.3
[2025-10-28 04:00] VITALS: BP 117/70; PULSE 75; RESP 17; TEMP 98
[2025-10-28 04:04] LABS: IMMATURE GRANULOCYTE ABSOLUTE 0.01 K/uL (0-1); NUCLEATED RED BLOOD CELLS 0.0 % (0.0-0.19); PLATELET COUNT (AUTO) 260 K/uL (130-400); RED BLOOD CELL COUNT(AUTO) 3.66 MIL/uL (4.00-5.50); RED CELL DISTRIBUTION WIDTH 11.8 % (11.0-15.5); WHITE BLOOD COUNT (AUTO) 7.6 K/uL (4.8-10.8)
[2025-10-28 04:12] LABS: CREATININE 0.9 mg/dL (0.5-1.0); GLOMERULAR FILTR. RATE CALC 84.0 mL/min (>90); GLUCOSE,RANDOM 100.0 mg/dL (70-105); SODIUM SERUM 139.0 mmol/L (136-145); UREA NITROGEN, BLOOD 17.0 mg/dL (7-18)
[2025-10-28 07:59] VITALS: O2SAT 99
--- NOTE | 2025-10-28 10:34 | PN ---
[facility] PROGRESS NOTE Date of Service: Oct 28, 2025 Time of Service: 10:34 SUBJECTIVE: HISTORY OF PRESENT ILLNESS: This is a female with no significant past medical history who presented to the hospital secondary to above pain and swelling in the left lower extremity. The patient states around two weeks ago she was spinning in the trauma to the left inner thigh while she was straining a broom. The broom had a metal wire which hit her left thigh. She initially had some ecchymosis on the left thigh and thereafter developed a swelling to the thigh area. She is able to ambulate and denies any falls with ambulation. She denies any symptoms on her right leg and denies sustaining any trauma to the right leg. She denied any melena, hematoc hezia, hematemesis. Denied any chest pain, shortness of breath, fever, chills. She initially seen in [facility] one week ago and was diagnosed with piriformis syndrome. Her symptoms persisted and thereafter patient came to the hospital for further evaluation. Patient did receive dose of tetanus last month. Patient's labs were notable for white count of 8.5, hemoglobin was 13.2, maryanne telet count was 270 K, sodium was 139, potassium was 4.1, creatinine was 0.7, troponin was negative x1, lactic acid was 1.2 Patient had venous Doppler which showed no evidence of DVT in the right lower extremity. There was evidence of superficial thrombophlebitis in the greater saphenous vein in the left lower extremity. Patient received Lovenox 80 mg of the ER. Patient was admitted for further medical management. 10/28/2025: Patient was seen and evaluated this morning, no family at bedside. Patient is awake, alert, oriented x3, saturating 99% with room air. Patient complains of pain and swelling of left lower extremity. Repeat ultrasound venous Doppler of left lower extremity performed on 10/28/2025 showed acute deep venous thrombosis of common femoral vein, superficial femoral vein, popliteal vein, posterior tibial vein, deep femoral vein, and great saphenous vein. Patient was started on heparin drip, IR consultation was made for possible thrombolysis due to extensive DVT. Blood culture showed no growth after 24 hours. Continue Rocephin, Pepcid. REVIEW OF SYSTEMS CONSTITUTIONAL: Denies fevers, chills, or night sweats. No unintentional weight loss reported. NEUROLOGICAL: Denies headache, amaurosis fugax, motor weakness, sensory deficit, vertigo/spinning sensation, gait abnormalities, or tremors. ENT: No hearing loss, otalgia, otorrhea, rhinitis, rhinorrhea, hoarseness, or sore throat. CARDIOVASCULAR: Denies any exertional angina, dyspnea on exertion, orthopnea, paroxysmal nocturnal dyspnea, palpitations, life-threatening arrhythmias, claudication. PULMONARY: Denies any shortness of breath, cough, phlegm/sputum, hemoptysis, pleuritic chest pain. SLEEP: Denies morning headaches, daytime somnolence or napping. Denies difficulty falling asleep, staying asleep, waking from sleep. Denies knowledge of snoring. GASTROINTESTINAL: Denies any type of dysphagia to either liquids or solids. Denies nausea, vomiting, pyrosis, early satiety, abdominal pain, diarrhea, constipation, or changes in stool consistency or caliber. Denies coffee-ground emesis, hematemesis, hematochezia, or melanotic stools. GENITOURINARY: Denies frequency, urgency, nocturia, hematuria or incontinence (Storage/Irritative symptoms.) Low urinary stream, straining to void, urinary intermittency or hesitancy, splitting of the voiding stream, terminal dribbling. ENDOCRINOLOGIC: Denies polyuria, polydipsia, polyphagia or heat/cold intolerances. HEMATOLOGIC: Denies thrombophilia/previous clots, or coagulopathy/bleeding disorders. ONCOLOGIC: Denies personal history of malignancy. DERMATOLOGIC: Denies rashes or pruritus. PSYCHIATRIC: Denies any suicidal or homicidal ideation. Denies hallucinations. Musculoskeletal: Pain and swelling in the left lower extremity PHYSICAL EXAM GENERAL APPEARANCE: The patient is awake, alert, and oriented, in no acute cardiopulmonary distress. NEUROLOGICAL: Cranial nerves II-XII grossly intact. Motor is 5/5 in bilateral upper and lower extremities proximal to distal. No sensory deficits. HEENT: Face is symmetric. Pupils are equal and reactive. Extraocular movements are intact. NECK: Supple. No JVD. No thyromegaly. No submental, submandibular, pre- /postauricular, occipital or supraclavicular lymphadenopathy. CHEST: Normal chest expansion. No Telemetry. LUNGS: Absence of any rales, rhonchi or any wheezing. CARDIOVASCULAR: Regular. S1 and S2 normal. No appreciable rubs, murmurs or gallops. ABDOMEN: Soft, nontender, and nondistended. There is no rebound, voluntary guarding, or rigidity. : Deferred. No [place]. EXTREMITIES: There is a small open wound in the left inner thigh. There is some induration around the inner thigh area. There is swelling in the left lower extremity with 1+ pitting edema. Right leg looks okay SKIN: No skin breakdown. Vital Signs (last 8hr) Date Time Temp Pulse Resp B/P (MAP) Pulse Ox O2 Delivery O2 Flow Rate FiO2 10/28/25 04:00 98.1 75 17 117/70 99 Room Air LABS: Laboratory: Test 10/28/25 03:50 10/27/25 11:31 10/27/25 09:45 10/27/25 09:25 Range/Units White Blood Count 7.6 4.8-10.8 K/uL Red Blood Count 3.66 L 4.00-5.50 MIL/uL Hemoglobin 11.0 L 12.0-16.0 g/dL Hematocrit 32.7 L 36-48 % Mean Corpuscular Volume 89.3 79-99 fL Mean Corpuscular Hemoglobin 30.1 27.0-33.0 pg Mean Corpuscular Hemoglobin Concent 33.6 32.0-36.0 g/dL Red Cell Distribution Width 11.8 11.0-15.5 % Platelet Count 260 130-400 K/uL Mean Platelet Volume 8.9 7.5-10.5 fL Immature Granulocyte % (Auto) 0.1 0-1 % Neutrophils (%) (Auto) 51.5 40.0-77.0 % Lymphocytes (%) (Auto) 36.2 21.0-51.0 % Monocytes (%) (Auto) 6.1 3.0-13.0 % Eosinophils (%) (Auto) 5.4 0.0-8.0 % Basophils (%) (Auto) 0.7 0.0-5.0 % Neutrophils # (Auto) 3.9 1.8-7.7 K/uL Lymphocytes # (Auto) 2.8 1.0-4.8 K/uL Monocytes # (Auto) 0.5 0.1-1.0 K/uL Eosinophils # (Auto) 0.41 0.00-0.70 K/uL Basophils # (Auto) 0.05 0.00-0.20 K/uL Absolute Immature Granulocyte (auto 0.01 0-1 K/uL Nucleated Red Blood Cells 0.0 0.0-0.19 % Sodium Level 139 136-145 mmol/L Potassium Level 4.3 3.5-5.1 mmol/L Chloride Level 105 101-111 mmol/L Carbon Dioxide Level 28 21-32 mmol/L Blood Urea Nitrogen 17 7-18 mg/dL Creatinine 0.9 0.5-1.0 mg/dL Glomerular Filtration Rate Calc 84 >90 mL/min Random Glucose 100 70-105 mg/dL Total Calcium 8.4 L 8.5-10.1 mg/dL Prothrombin Time 10.6 9.6-11.6 SEC Prothromb Time International Ratio 1.00 0.85-1.15 Activated Partial Thromboplast Time 25.9 L 26.3-35.5 SEC Hemoglobin A1c 5.2 4.0-6.0 % Estimated Average Glucose (eAG) 103 70-126 mg/dL Procalcitonin < 0.05 L 0.05-0.5 ng/mL Lactic Acid Level 1.2 0.8-2.5 mmol/L Total Creatine Kinase 83 21-232 U/L Troponin I High Sensitivity 21 4-50 ng/L C-Reactive Protein, Quantitative 12.30 H 0.5-3.0 mg/L Thyroid Stimulating Hormone (TSH) 1.48 0.36-3.74 uIU/mL Erythrocyte Sedimentation Rate 13 0-20 MM/HR Current Medications Medications (Trade) Dose Ordered Sig/Tess Route PRN Reason Start Time Stop Time Status Last Admin Dose Admin Acetaminophen (TYLenol 500MG TAB) 500 mg Q6H PRN PO MILD PAIN (1-3) 10/27/25 11:30 11/26/25 11:29 Ceftriaxone Sodium (Rocephin 2gm Inj) 2 gm ONCE STAT IVPB 10/27/25 09:15 10/27/25 09:18 DC 10/27/25 09:52 2 GM Ceftriaxone Sodium (Rocephin 2gm Inj) 2 gm Q24H IVPB 10/28/25 09:00 11/07/25 08:59 10/28/25 08:35 2 GM Enoxaparin Sodium (Lovenox 80mg) 80 mg ONCE STAT SQ 10/27/25 10:25 10/27/25 10:29 DC 10/27/25 11:32 80 MG Enoxaparin Sodium (Lovenox 80mg) 80 mg Q12H SQ 10/27/25 23:30 11/26/25 23:29 Hold 10/27/25 23:38 80 MG Famotidine (Pepcid 20mg Vial) 20 mg BID IV 10/27/25 21:00 11/26/25 20:59 10/28/25 08:35 20 MG Lidocaine (Lidoderm Patch 5%) 1 patch ONCE STAT TP 10/27/25 09:08 10/27/25 09:16 DC Magnesium Sulfate 50 ml @ 0 mls/hr PROTOCOL PRN IV hypomagnesemia 10/27/25 11:30 11/26/25 11:29 Morphine Sulfate (morPHINE 2MG SYG) 2 mg Q6H PRN IVP SEVERE PAIN (7-10) 10/27/25 14:00 11/03/25 13:59 Morphine Sulfate (morPHINE 4MG SYG) 4 mg ONCE STAT IVP 10/27/25 09:17 10/27/25 09:19 DC 10/27/25 09:52 4 MG Ondansetron HCl (zoFRAN 4MG INJ) 4 mg ONCE STAT IVP 10/27/25 09:17 10/27/25 09:19 DC 10/27/25 09:51 4 MG Potassium Chloride 100 ml @ 100 mls/hr AD PRN IV POTASSIUM PROTOCOL 10/27/25 11:30 11/26/25 11:29 Potassium Chloride (K-Dur/Klor-Con 20meq) 20 meq AD PRN PO POTASSIUM PROTOCOL 10/27/25 11:30 11/26/25 11:29 Potassium Chloride (KCl 10% Elixir 20meq/15ml) 20 meq AD PRN PO POTASSIUM PROTOCOL 10/27/25 11:30 11/26/25 11:29 Vancomycin HCl (Vancomycin 1g/ 250ml Kit) 1 gm ONCE STAT IV 10/27/25 09:15 10/27/25 09:19 DC 10/27/25 10:53 1 GM DIAGNOSTICS / RADIOLOGY: [ ] [place] [address] [place] [id number] IMAGING REPORT Addendum PATIENT: PADDY JOHNSON MR#: [id number] : 1990 SEX: F AGE: 35 LOCATION: H ORDER 7 STATUS: ADM IN REPORT#: [id number] SERVICE 4 REASON: r/o dvt ORDERING PHYSICIAN: RAE ANTUNEZ MD PROCEDURE: VENOUS UNI - US VENOUS DOPPLER UNILATERAL ADDENDUM REPORT ADDENDUM: EXAM: US for Deep Venous Thrombosis, left Lower Extremity. CLINICAL HISTORY: Leg Pain and Swelling TECHNIQUE: Real-time ultrasound scan of the veins of the left lower extremity with color Doppler flow, spectral waveform analysis and compression. COMPARISON: None provided. FINDINGS: There is DVT within the greater saphenous, common femoral, superficial femoral (proximal, mid, and distal), popliteal, and posterior tibial veins. IMPRESSION: 1. Deep venous thrombosis involving the left greater saphenous, common femoral, superficial femoral, popliteal, and posterior tibial veins. The emergency room physician was made aware at the time of the examination. /[place] ADDENDUM: EXAM: US for Deep Venous Thrombosis, left Lower Extremity. CLINICAL HISTORY: Leg Pain and Swelling TECHNIQUE: Real-time ultrasound scan of the veins of the left lower extremity with color Doppler flow, spectral waveform analysis and compression. COMPARISON: None provided. FINDINGS: DEEP VEINS: The common femoral, superficial femoral, and popliteal veins are echolucent and compressible. There is normal color Doppler flow throughout. The visualized calf veins appear patent. Superficial thrombophlebitis within the greater saphenous vein. SOFT TISSUES: No popliteal fossa cyst or other abnormalities. IMPRESSION: 1. No deep venous thrombosis in the left lower extremity. 2. Superficial thrombophlebitis within the greater saphenous vein. The clinical team was made aware at the time of the examination. /[place] EXAM: US for Deep Venous Thrombosis, right Lower Extremity. CLINICAL HISTORY: Leg Pain and Swelling TECHNIQUE: Real-time ultrasound scan of the veins of the right lower extremity with color Doppler flow, spectral waveform analysis and compression. COMPARISON: None provided. FINDINGS: DEEP VEINS: The common femoral, superficial femoral, and popliteal veins are echolucent and compressible. There is normal color Doppler flow throughout. The visualized calf veins appear patent. Superficial thrombophlebitis within the greater saphenous vein. SOFT TISSUES: No popliteal fossa cyst or other abnormalities. IMPRESSION: 1. No deep venous thrombosis in the right lower extremity. 2. Superficial thrombophlebitis within the greater saphenous vein. The clinical team was made aware at the time of the examination. /[place] DICTATED BY: SHAVON RODRIGUEZ Jr., MD DATE: 10/28/25 150 ELECTRONICALLY SIGNED BY: DATE: EXAM: US for Deep Venous Thrombosis, right Lower Extremity. CLINICAL HISTORY: Leg Pain and Swelling TECHNIQUE: Real-time ultrasound scan of the veins of the right lower extremity with color Doppler flow, spectral waveform analysis and compression. COMPARISON: None provided. FINDINGS: DEEP VEINS: The common femoral, superficial femoral, and popliteal veins are echolucent and compressible. There is normal color Doppler flow throughout. The visualized calf veins appear patent. Superficial thrombophlebitis within the greater saphenous vein. SOFT TISSUES: No popliteal fossa cyst or other abnormalities. IMPRESSION: 1. No deep venous thrombosis in the right lower extremity. 2. Superficial thrombophlebitis within the greater saphenous vein. The clinical team was made aware at the time of the examination. /[place] DICTATED BY: SHAVON RODRIGUEZ Jr., MD DATE: 10/27/25 1200 ELECTRONICALLY SIGNED BY: SHAVON RODRIGUEZ Jr., MD DATE: 10/27/[address] [address] IMAGING REPORT Signed PATIENT: PADDY JOHNSON MR#: [id number] : 1990 SEX: F AGE: 35 LOCATION: 4BH ORDER 23 STATUS: [facility] REPORT#: [id number] SERVICE 18 REASON: LLE arterial doppler ORDERING PHYSICIAN: HOLDEN NERI MD PROCEDURE: ART U LE - US ARTERIAL UNILA LOW EXT DUPL Exam: Left lower extremity arterial ultrasound. Technique: Static grayscale and Doppler images were obtained History: Left lower extremity pain Comparison: None available Left side: PBX INSPECTOR systolic: 172 cm/s Waveform: Triphasic SFA proximal systolic: 139 cm/s Waveform: Triphasic SFA mid systolic: 136 cm/s Waveform: Triphasic SFA distal systolic: 110 cm/s Waveform: Triphasic Popliteal artery systolic: 68/66 cm/s Waveform triphasic Anterior tibial artery systolic: 94 cm/s Waveform triphasic Posterior tibial artery systolic 83 cm/s Waveform triphasic. Dorsalis pedis artery: 70 cm/s. Waveform: Triphasic IMPRESSION: 1. No acute arterial abnormality of the left lower extremity. Normal velocities and normal triphasic waveform pattern throughout /[place] DICTATED BY: AGUILAR BELCHER MD DATE: 10/27/251649 ELECTRONICALLY SIGNED BY: AGUILAR BELCHER MD DATE: 10/27/251649 [place] [address] IMAGING REPORT Signed PATIENT: PADDY JOHNSON MR#: [id number] : 1990 SEX: F AGE: 35 LOCATION: [facility] ORDER 23 STATUS: ADM IN REPORT#: [id number] SERVICE 18 REASON: LEFT thigh trauma. Rule out frcature ORDERING PHYSICIAN: HOLDEN NERI MD PROCEDURE: FEM LT 2 - FEMUR 2 VW LEFT EXAM: CR left Femur, 4 View. CLINICAL HISTORY: LEFT thigh trauma. Rule out frcature COMPARISON: None provided. FINDINGS: BONES: No acute fracture or aggressive appearing osseous lesion. JOINTS: No dislocation. SOFT TISSUES: The soft tissues are unremarkable. IMPRESSION: No acute osseous abnormality. /[place] DICTATED BY: SHAVON RODRIGUEZ Jr., MD DATE: 10/27/251323 ELECTRONICALLY SIGNED BY: SHAVON RODRIGUEZ Jr., MD DATE: 10/27/251323 [facility] [address] [place], [place] [id number] IMAGING REPORT Addendum PATIENT: PADDY JOHNSON MR#: [id number] : 1990 SEX: F AGE: 35 LOCATION: [facility] ORDER 2300 STATUS: ADM IN REPORT#: [id number] SERVICE 06 REASON: LL extremity DVT ORDERING PHYSICIAN: HOLDEN NERI MD PROCEDURE: VENOUS UNI - US VENOUS DOPPLER UNILATERAL ADDENDUM REPORT ADDENDUM: Results were shared by telephone at 1:13 PM EST on 10-28-2025 and acknowledged by HOLDEN Feldman. /[place] EXAM: US Duplex Left Lower Extremity Veins. CLINICAL HISTORY: To rule out DVT. TECHNIQUE: Real-time ultrasound scan of the veins of the left lower extremity with color Doppler flow, spectral waveform analysis and compression. COMPARISON: Compared with the prior venous doppler of the left lower extremity dated October 27, 2025. FINDINGS: DEEP VEINS: The left common femoral vein, the entire extent of the superficial femoral vein, the popliteal vein, posterior tibial vein, mid and distal superficial femoral vein, and deep femoral vein demonstrate loss of compressibility and augmentation. There is no flow visualized. Features are suggestive of acute deep venous thrombosis of the left lower extremity venous system. SUPERFICIAL VEINS: The great saphenous vein demonstrates loss of compressibility and augmentation. There is no flow visualized. Features are suggestive of acute deep venous thrombosis of the great saphenous vein. SOFT TISSUES: No popliteal fossa cyst or other abnormalities. IMPRESSION: 1. Acute deep venous thrombosis of the left lower extremity venous system including the common femoral vein, superficial femoral vein, popliteal vein, posterior tibial vein, deep femoral vein, and great saphenous vein. This finding is stable since the prior venous doppler of the left lower extremity dated October 27, 2025. /[place] DICTATED BY: ALYSHA LIMA MD DATE: 10/28/25 1316 ELECTRONICALLY SIGNED BY: DATE: EXAM: US Duplex Left Lower Extremity Veins. CLINICAL HISTORY: To rule out DVT. TECHNIQUE: Real-time ultrasound scan of the veins of the left lower extremity with color Doppler flow, spectral waveform analysis and compression. COMPARISON: Compared with the prior venous doppler of the left lower extremity dated October 27, 2025. FINDINGS: DEEP VEINS: The left common femoral vein, the entire extent of the superficial femoral vein, the popliteal vein, posterior tibial vein, mid and distal superficial femoral vein, and deep femoral vein demonstrate loss of compressibility and augmentation. There is no flow visualized. Features are suggestive of acute deep venous thrombosis of the left lower extremity venous system. SUPERFICIAL VEINS: The great saphenous vein demonstrates loss of compressibility and augmentation. There is no flow visualized. Features are suggestive of acute deep venous thrombosis of the great saphenous vein. SOFT TISSUES: No popliteal fossa cyst or other abnormalities. IMPRESSION: 1. Acute deep venous thrombosis of the left lower extremity venous system including the common femoral vein, superficial femoral vein, popliteal vein, posterior tibial vein, deep femoral vein, and great saphenous vein. This finding is stable since the prior venous doppler of the left lower extremity dated October 27, 2025. /[place] DICTATED BY: ALYSHA LIMA MD DATE: 10/28/25 1306 ELECTRONICALLY SIGNED BY: ALYSHA LIMA MD DATE: 10/28/25 1306 ASSESSMENT: Acute deep venous thrombosis of left lower extremity venous system POA Left symptomatic superficial thrombophlebitis of the greater saphenous vein secondary to trauma POA Small open wound in left inner thigh secondary to trauma Possible cellulitis in the left inner thigh PLAN: Acute deep venous thrombosis of left lower extremity venous system POA Ultrasound of left lower extremity showed acute DVT of common femoral vein, superficial femoral vein, popliteal vein, posterior tibial vein, deep femoral vein, and great saphenous vein. On presentation PT 10.6, INR 1, APTT 25 Patient was started on heparin drip. Consulted IR for possible thrombolysis due to extensive nature of DVT Monitor APTT per protocol. Possible cellulitis in the left inner thigh Patient had injury to left inner thigh 2 weeks back, pain and swelling p rogressed despite anti-inflammatory medication White count on presentation 8.5, lactic acid 1.2, CRP 12.30 Patient was started on Rocephin 2 g Q 24 H IV We will trend white count and lactic acid daily GI prophylaxis with Pepcid ATTESTATION BY PHYSICIAN I have seen and examined the patient. I reviewed the documentation, medical decision making, and treatment plan as noted by the resident physician above. I agree with the findings and plan of care. LEVY RODRIGUEZ MD, ADIL SHAH QUADRI MD Oct 28, 2025 10:34
[2025-10-28 10:38] LABS: APPEARANCE,URINE CLEAR (CLEAR); GLUCOSE, URINE (UA) NEGATIVE (NEGATIVE); LEUKOCYTE ESTERASE ,URINE NEGATIVE Leu/uL (NEGATIVE); NITRATE,URINE NEGATIVE (NEGATIVE); OCCULT BLOOD,URINE NEGATIVE (NEGATIVE)
[2025-10-28 10:39] LABS: ADD UA MICROSCOPIC NO
[2025-10-28 10:45] LABS: HCG,QUALITATIVE URINE NEGATIVE (NEGATIVE)
--- NOTE | 2025-10-28 12:07 | HMCIMG ---
EXAM: US Duplex Left Lower Extremity Veins. CLINICAL HISTORY: To rule out DVT. TECHNIQUE: Real-time ultrasound scan of the veins of the left lower extremity with color Doppler flow, spectral waveform analysis and compression. COMPARISON: Compared with the prior venous doppler of the left lower extremity dated October 27, 2025. FINDINGS: DEEP VEINS: The left common femoral vein, the entire extent of the superficial femoral vein, the popliteal vein, posterior tibial vein, mid and distal superficial femoral vein, and deep femoral vein demonstrate loss of compressibility and augmentation. There is no flow visualized. Features are suggestive of acute deep venous thrombosis of the left lower extremity venous system. SUPERFICIAL VEINS: The great saphenous vein demonstrates loss of compressibility and augmentation. There is no flow visualized. Features are suggestive of acute deep venous thrombosis of the great saphenous vein. SOFT TISSUES: No popliteal fossa cyst or other abnormalities. IMPRESSION: 1. Acute deep venous thrombosis of the left lower extremity venous system including the common femoral vein, superficial femoral vein, popliteal vein, posterior tibial vein, deep femoral vein, and great saphenous vein. This finding is stable since the prior venous doppler of the left lower extremity dated October 27, 2025. /[place]
[2025-10-28 13:39] LABS: IMMATURE GRANULOCYTE ABSOLUTE 0.02 K/uL (0-1); NUCLEATED RED BLOOD CELLS 0.0 % (0.0-0.19); PLATELET COUNT (AUTO) 298 K/uL (130-400); RED BLOOD CELL COUNT(AUTO) 4.22 MIL/uL (4.00-5.50); RED CELL DISTRIBUTION WIDTH 11.9 % (11.0-15.5); WHITE BLOOD COUNT (AUTO) 7.9 K/uL (4.8-10.8)
[2025-10-28] MEDS ORDERED: HEParin-NS 1,000 UNIT/500 ML 0 ML IV ONE (13:56)
[2025-10-28] MEDS ORDERED: LIDOCAINE HCL 1% MDV 50ML VIAL ONE (13:56)
[2025-10-28] MEDS ORDERED: IODIXANOL 320 MG/ML 100 ML VIAL ONE (13:56)
--- NOTE | 2025-10-28 18:06 | PN ---
10/28/25 - Patient was seen and evaluated this morning, no family at bedside. Patient is awake, alert, oriented x3, saturating 99% with room air. Patient complains of pain and swelling of left lower extremity. Repeat ultrasound venous Doppler of left lower extremity performed on 10/28/2025 showed acute deep venous thrombosis of common femoral vein, superficial femoral vein, popliteal vein, posterior tibial vein, deep femoral vein, and great saphenous vein. Patient was started on heparin drip, IR consultation was made for possible thrombectomy due to extensive DVT. ASSESSMENT: Acute deep venous thrombosis of left lower extremity venous system POA Left symptomatic superficial thrombophlebitis of the greater saphenous vein secondary to trauma POA Small open wound in left inner thigh secondary to trauma Possible cellulitis in the left inner thigh PLAN: Acute deep venous thrombosis of left lower extremity venous system POA Ultrasound of left lower extremity showed acute DVT of common femoral vein, superficial femoral vein, popliteal vein, posterior tibial vein, deep femoral vein, and great saphenous vein. - Initiate heparin drip Recommend possible thrombectomy Check labs in AM Vitals/Labs Vital Signs Date Time Temp Pulse Resp B/P (MAP) Pulse Ox O2 Delivery O2 Flow Rate FiO2 10/28/25 07:59 99 Room Air* 0 21 10/28/25 04:00 98.1 75 17 117/70 Laboratory Tests 10/28/25 03:50 10/28/25 13:12 Medications Current Medications Lidocaine 1 patch ONCE STAT TP; Start 10/27/25 at 09:08; Stop 10/27/25 at 09:16; Status DC Ketorolac Tromethamine 30 mg ONCE ONCE IM; Start 10/27/25 at 09:30; Stop 10/27/25 at 09:16; Status DC Ceftriaxone Sodium 2 gm ONCE STAT IVPB Last administered on 10/27/25at 09:52; Start 10/27/25 at 09:15; Stop 10/27/25 at 09:18; Status DC Vancomycin HCl 1 gm ONCE STAT IV Last administered on 10/27/25at 10:53; Start 10/27/25 at 09:15; Stop 10/27/25 at 09:19; Status DC Morphine Sulfate 4 mg ONCE STAT IVP Last administered on 10/27/25at 09:52; Start 10/27/25 at 09:17; Stop 10/27/25 at 09:19; Status DC Ondansetron HCl 4 mg ONCE STAT IVP Last administered on 10/27/25at 09:51; Start 10/27/25 at 09:17; Stop 10/27/25 at 09:19; Status DC Enoxaparin Sodium 80 mg ONCE STAT SQ Last administered on 10/27/25at 11:32; Start 10/27/25 at 10:25; Stop 10/27/25 at 10:29; Status DC Famotidine 20 mg BID IV Last administered on 10/28/25at 08:35; Start 10/27/25 at 21:00; Stop 11/26/25 at 20:59 Acetaminophen 500 mg Q6H PRN PO; Start 10/27/25 at 11:30; Stop 11/26/25 at 11:29 Potassium Chloride 100 ml @ 100 mls/hr AD PRN IV; Start 10/27/25 at 11:30; Stop 11/26/25 at 11:29 Potassium Chloride 20 meq AD PRN PO; Start 10/27/25 at 11:30; Stop 11/26/25 at 11:29 Potassium Chloride 20 meq AD PRN PO; Start 10/27/25 at 11:30; Stop 11/26/25 at 11:29 Magnesium Sulfate 50 ml @ 0 mls/hr PROTOCOL PRN IV; Start 10/27/25 at 11:30; Stop 11/26/25 at 11:29 Ceftriaxone Sodium 2 gm Q24H IVPB Last administered on 10/28/25at 08:35; Start 10/28/25 at 09:00; Stop 11/07/25 at 08:59 Enoxaparin Sodium 80 mg Q12H SQ Last administered on 10/27/25at 23:38; Start 10/27/25 at 23:30; Stop 10/28/25 at 12:41; Status DC Morphine Sulfate 2 mg Q6H PRN IVP; Start 10/27/25 at 14:00; Stop 11/03/25 at 13:59 Heparin Sodium (Porcine) *calculation based on ACTUAL B... AD PRN IV; Start 10/28/25 at 13:30; Stop 11/27/25 at 13:29 Heparin Sodium/ Dextrose 250 ml @ 0 mls/hr Q6H IV Last administered on 10/28/25at 15:08; Start 10/28/25 at 13:30; Stop 11/27/25 at 13:29 Lidocaine HCl 50 ml STK-MED ONCE .ROUTE; Start 10/28/25 at 13:56; Stop 10/28/25 at 13:56; Status DC Iodixanol 100 ml STK-MED ONCE .ROUTE; Start 10/28/25 at 13:56; Stop 10/28/25 at 13:56; Status DC Heparin Sodium/ Sodium Chloride 0 ml @ As Directed STK-MED ONCE IV; Start 10/28/25 at 13:56; Stop 10/28/25 at 13:56; Status DC Neomycin/ Polymyxin/ Bacitracin 1 appl DAILY TP; Start 10/28/25 at 17:00; Stop 11/27/25 at 16:59 MASON HERNÁNDEZ Oct 28, 2025 18:05
[2025-10-28] MEDS ORDERED: IOHEXOL-350 75 ML VIAL IV ONE (18:24)
[2025-10-28 19:55] VITALS: BP 137/95; PULSE 80; RESP 18; TEMP 97.8
[2025-10-28 20:00] VITALS: O2SAT 98
[2025-10-28] MEDS: NEOMY SULF/BACITRA/POLYMYXIN B 1 EACH PACKET TP SCH (21:08)
[2025-10-28 23:59] VITALS: BP 126/75; PULSE 80; RESP 16; TEMP 98
[2025-10-29] VITALS (7 sets, daily range): BP systolic 103–151; BP diastolic 55–87; PULSE 75–84; RESP 16–18; TEMP 97.8–98.8; O2SAT 98
[2025-10-29 05:21] LABS: IMMATURE GRANULOCYTE ABSOLUTE 0.03 K/uL (0-1); NUCLEATED RED BLOOD CELLS 0.0 % (0.0-0.19); PLATELET COUNT (AUTO) 260 K/uL (130-400); RED BLOOD CELL COUNT(AUTO) 3.76 MIL/uL (4.00-5.50); RED CELL DISTRIBUTION WIDTH 11.8 % (11.0-15.5); WHITE BLOOD COUNT (AUTO) 9.3 K/uL (4.8-10.8)
[2025-10-29 05:39] LABS: INR 1.0 (0.85-1.15)
[2025-10-29 05:42] LABS: CREATININE 0.8 mg/dL (0.5-1.0); GLOMERULAR FILTR. RATE CALC 97.0 mL/min (>90); GLUCOSE,RANDOM 103.0 mg/dL (70-105); SODIUM SERUM 139.0 mmol/L (136-145); UREA NITROGEN, BLOOD 15.0 mg/dL (7-18)
--- NOTE | 2025-10-29 09:20 | PN ---
[facility] PROGRESS NOTE Date of Service: Oct 29, 2025 Time of Service: 09:15 SUBJECTIVE: HISTORY OF PRESENT ILLNESS: This is a female with no significant past medical history who presented to the hospital secondary to above pain and swelling in the left lower extremity. The patient states around two weeks ago she was spinning in the trauma to the left inner thigh while she was straining a broom. The broom had a metal wire which hit her left thigh. She initially had some ecchymosis on the left thigh and thereafter developed a swelling to the thigh area. She is able to ambulate and denies any falls with ambulation. She denies any symptoms on her right leg and denies sustaining any trauma to the right leg. She denied any melena, hematoc hezia, hematemesis. Denied any chest pain, shortness of breath, fever, chills. She [place] seen [place] [facility] [place] and was diagnosed with piriformis syndrome. Her symptoms persisted and thereafter patient came to the hospital for further evaluation. Patient did receive dose of tetanus last month. Patient's labs were notable for white count of 8.5, hemoglobin was 13.2, maryanne telet count was 270 K, sodium was 139, potassium was 4.1, creatinine was 0.7, troponin was negative x1, lactic acid was 1.2 Patient had venous Doppler which showed no evidence of DVT in the right lower extremity. There was evidence of superficial thrombophlebitis in the greater saphenous vein in the left lower extremity. Patient received Lovenox 80 mg of the ER. Patient was admitted for further medical management. 10/28/2025: Patient was seen and evaluated this morning, no family at bedside. Patient is awake, alert, oriented x3, saturating 99% with room air. Patient complains of pain and swelling of left lower extremity. Repeat ultrasound venous Doppler of left lower extremity performed on 10/28/2025 showed acute deep venous thrombosis of common femoral vein, superficial femoral vein, popliteal vein, posterior tibial vein, deep femoral vein, and great saphenous vein. Patient was started on heparin drip, IR consultation was made for possible thrombolysis due to extensive DVT. Blood culture showed no growth after 24 hours. Continue Rocephin, Pepcid. 10/29/2025: Patient is seen and evaluated in room 407. Patient reports no concerns or complaints. She states she cannot move much because of her leg. She understands that she has a clot in her veins, which will be removed on Friday. She is currently on a heparin drip to prevent further clotting. After the p rocedure, she will transition to oral or injectable anticoagulation. Patient had Xulane ( 150/35) implant for contraception, which could probably be the reason for hypercoagulable state, for now we are not removing the implant as patient may bleed heavily once removed as patient is currently on heparin drip. Labs are overall within normal limits; platelet count is 260, and current APTT is 36.8, likely affected by the heparin drip. REVIEW OF SYSTEMS CONSTITUTIONAL: Denies fevers, chills, or night sweats. No unintentional weight loss reported. NEUROLOGICAL: Denies headache, amaurosis fugax, motor weakness, sensory deficit, vertigo/spinning sensation, gait abnormalities, or tremors. ENT: No hearing loss, otalgia, otorrhea, rhinitis, rhinorrhea, hoarseness, or sore throat. CARDIOVASCULAR: Denies any exertional angina, dyspnea on exertion, orthopnea, paroxysmal nocturnal dyspnea, palpitations, life-threatening arrhythmias, claudication. PULMONARY: Denies any shortness of breath, cough, phlegm/sputum, hemoptysis, pleuritic chest pain. SLEEP: Denies morning headaches, daytime somnolence or napping. Denies difficulty falling asleep, staying asleep, waking from sleep. Denies knowledge of snoring. GASTROINTESTINAL: Denies any type of dysphagia to either liquids or solids. Denies nausea, vomiting, pyrosis, early satiety, abdominal pain, diarrhea, constipation, or changes in stool consistency or caliber. Denies coffee-ground emesis, hematemesis, hematochezia, or melanotic stools. GENITOURINARY: Denies frequency, urgency, nocturia, hematuria or incontinence (Storage/Irritative symptoms.) Low urinary stream, straining to void, urinary intermittency or hesitancy, splitting of the voiding stream, terminal dribbling. ENDOCRINOLOGIC: Denies polyuria, polydipsia, polyphagia or heat/cold intolerances. HEMATOLOGIC: Denies thrombophilia/previous clots, or coagulopathy/bleeding disorders. Patient has DVT in left lower extremity venous system ONCOLOGIC: Denies personal history of malignancy. DERMATOLOGIC: Denies rashes or pruritus. PSYCHIATRIC: Denies any suicidal or homicidal ideation. Denies hallucinations. Musculoskeletal: Pain and swelling in the left lower extremity PHYSICAL EXAM GENERAL APPEARANCE: The patient is awake, alert, and oriented, in no acute cardiopulmonary distress. NEUROLOGICAL: Cranial nerves II-XII grossly intact. Motor is 5/5 in bilateral upper and lower extremities proximal to distal. No sensory deficits. HEENT: Face is symmetric. Pupils are equal and reactive. Extraocular movements are intact. NECK: Supple. No JVD. No thyromegaly. No submental, submandibular, pre- /postauricular, occipital or supraclavicular lymphadenopathy. CHEST: Normal chest expansion. No Telemetry. LUNGS: Absence of any rales, rhonchi or any wheezing. CARDIOVASCULAR: Regular. S1 and S2 normal. No appreciable rubs, murmurs or gallops. ABDOMEN: Soft, nontender, and nondistended. There is no rebound, voluntary guarding, or rigidity. : Deferred. No [place]. EXTREMITIES: There is a small open wound in the left inner thigh. There is some induration around the inner thigh area. There is swelling in the left lower extremity with 1+ pitting edema. Right leg looks okay SKIN: No skin breakdown. Vital Signs (last 8hr) Date Time Temp Pulse Resp B/P (MAP) Pulse Ox O2 Delivery O2 Flow Rate FiO2 10/29/25 08:00 98.1 77 16 120/75 98 Room Air 10/29/25 04:00 98.1 84 18 134/79 98 Room Air LABS: Laboratory: Test 10/29/25 04:40 10/28/25 14:01 10/28/25 13:12 10/28/25 10:19 Range/Units White Blood Count 9.3 4.8-10.8 K/uL Red Blood Count 3.76 L 4.00-5.50 MIL/uL Hemoglobin 11.2 L 12.0-16.0 g/dL Hematocrit 33.7 L 36-48 % Mean Corpuscular Volume 89.6 79-99 fL Mean Corpuscular Hemoglobin 29.8 27.0-33.0 pg Mean Corpuscular Hemoglobin Concent 33.2 32.0-36.0 g/dL Red Cell Distribution Width 11.8 11.0-15.5 % Platelet Count 260 130-400 K/uL Mean Platelet Volume 9.1 7.5-10.5 fL Immature Granulocyte % (Auto) 0.3 0-1 % Neutrophils (%) (Auto) 65.6 40.0-77.0 % Lymphocytes (%) (Auto) 24.1 21.0-51.0 % Monocytes (%) (Auto) 4.8 3.0-13.0 % Eosinophils (%) (Auto) 4.6 0.0-8.0 % Basophils (%) (Auto) 0.6 0.0-5.0 % Neutrophils # (Auto) 6.1 1.8-7.7 K/uL Lymphocytes # (Auto) 2.2 1.0-4.8 K/uL Monocytes # (Auto) 0.5 0.1-1.0 K/uL Eosinophils # (Auto) 0.43 0.00-0.70 K/uL Basophils # (Auto) 0.06 0.00-0.20 K/uL Absolute Immature Granulocyte (auto 0.03 0-1 K/uL Nucleated Red Blood Cells 0.0 0.0-0.19 % Prothrombin Time 10.6 9.6-11.6 SEC Prothromb Time International Ratio 1.00 0.85-1.15 Activated Partial Thromboplast Time 63.8 H 26.3-35.5 SEC Sodium Level 139 136-145 mmol/L Potassium Level 3.9 3.5-5.1 mmol/L Chloride Level 105 101-111 mmol/L Carbon Dioxide Level 27 21-32 mmol/L Blood Urea Nitrogen 15 7-18 mg/dL Creatinine 0.8 0.5-1.0 mg/dL Glomerular Filtration Rate Calc 97 >90 mL/min Random Glucose 103 70-105 mg/dL Total Calcium 8.6 8.5-10.1 mg/dL Lupus Anticoag PTT Mix/Correction Hexagonal Phospholipid Neutralizat Serum Test, Qualitative NEGATIVE NEGATIVE Urine Color COLORLESS YELLOW Urine Appearance CLEAR CLEAR Urine pH 5.5 5.0-8.0 Urine Specific [place] 1.006 1.001-1.031 Urine Protein NEGATIVE NEGATIVE mg/dL Urine Glucose (UA) NEGATIVE NEGATIVE mg/dL Urine Ketones NEGATIVE NEGATIVE mg/dL Urine Occult Blood NEGATIVE NEGATIVE Urine Nitrate NEGATIVE NEGATIVE Urine Bilirubin NEGATIVE NEGATIVE mg/dL Urine Urobilinogen 0.2 0.2-1.0 mg/dL Urine Leukocyte Esterase NEGATIVE NEGATIVE Ani/uL Urine HCG, Qualitative NEGATIVE NEGATIVE Test 10/27/25 11:31 10/27/25 09:45 10/27/25 09:25 Range/Units Hemoglobin A1c 5.2 4.0-6.0 % Estimated Average Glucose (eAG) 103 70-126 mg/dL Procalcitonin < 0.05 L 0.05-0.5 ng/mL Lactic Acid Level 1.2 0.8-2.5 mmol/L Total Creatine Kinase 83 21-232 U/L Troponin I High Sensitivity 21 4-50 ng/L C-Reactive Protein, Quantitative 12.30 H 0.5-3.0 mg/L Thyroid Stimulating Hormone (TSH) 1.48 0.36-3.74 uIU/mL Erythrocyte Sedimentation Rate 13 0-20 MM/HR Current Medications Medications (Trade) Dose Ordered Sig/Tess Route PRN Reason Start Time Stop Time Status Last Admin Dose Admin Acetaminophen (TYLenol 500MG TAB) 500 mg Q6H PRN PO MILD PAIN (1-3) 10/27/25 11:30 11/26/25 11:29 Ceftriaxone Sodium (Rocephin 2gm Inj) 2 gm ONCE STAT IVPB 10/27/25 09:15 10/27/25 09:18 DC 10/27/25 09:52 2 GM Ceftriaxone Sodium (Rocephin 2gm Inj) 2 gm Q24H IVPB 10/28/25 09:00 11/07/25 08:59 10/29/25 08:39 2 GM Enoxaparin Sodium (Lovenox 80mg) 80 mg ONCE STAT SQ 10/27/25 10:25 10/27/25 10:29 DC 10/27/25 11:32 80 MG Enoxaparin Sodium (Lovenox 80mg) 80 mg Q12H SQ 10/27/25 23:30 10/28/25 12:41 DC 10/27/25 23:38 80 MG Famotidine (Pepcid 20mg Vial) 20 mg BID IV 10/27/25 21:00 11/26/25 20:59 10/29/25 08:39 20 MG Heparin Sodium (Porcine) (HEParin 5,000 UNIT VIAL) *calculation based on ACTUAL B... AD PRN IV HEPARIN PROTOCOL 10/28/25 13:30 11/27/25 13:29 Heparin Sodium/ Dextrose 250 ml @ 0 mls/hr Q6H IV 10/28/25 13:30 11/27/25 13:29 10/28/25 15:08 13.95 MLS/HR Lidocaine (Lidoderm Patch 5%) 1 patch ONCE STAT TP 10/27/25 09:08 10/27/25 09:16 DC Magnesium Sulfate 50 ml @ 0 mls/hr PROTOCOL PRN IV hypomagnesemia 10/27/25 11:30 11/26/25 11:29 Morphine Sulfate (morPHINE 2MG SYG) 2 mg Q6H PRN IVP SEVERE PAIN (7-10) 10/27/25 14:00 11/03/25 13:59 Morphine Sulfate (morPHINE 4MG SYG) 4 mg ONCE STAT IVP 10/27/25 09:17 10/27/25 09:19 DC 10/27/25 09:52 4 MG Neomycin/ Polymyxin/ Bacitracin (Triple Antibiotic Ointment) 1 appl DAILY TP 10/28/25 17:00 11/27/25 16:59 10/29/25 08:39 1 APPL Ondansetron HCl (zoFRAN 4MG INJ) 4 mg ONCE STAT IVP 10/27/25 09:17 10/27/25 09:19 DC 10/27/25 09:51 4 MG Potassium Chloride 100 ml @ 100 mls/hr AD PRN IV POTASSIUM PROTOCOL 10/27/25 11:30 11/26/25 11:29 Potassium Chloride (K-Dur/Klor-Con 20meq) 20 meq AD PRN PO POTASSIUM PROTOCOL 10/27/25 11:30 11/26/25 11:29 Potassium Chloride (KCl 10% Elixir 20meq/15ml) 20 meq AD PRN PO POTASSIUM PROTOCOL 10/27/25 11:30 11/26/25 11:29 Vancomycin HCl (Vancomycin 1g/ 250ml Kit) 1 gm ONCE STAT IV 10/27/25 09:15 10/27/25 09:19 DC 10/27/25 10:53 1 GM DIAGNOSTICS / RADIOLOGY: [ ] ASSESSMENT: Acute deep venous thrombosis of left lower extremity venous system POA Left symptomatic superficial thrombophlebitis of the greater saphenous vein secondary to trauma POA Small open wound in left inner thigh secondary to trauma Possible cellulitis in the left inner thigh PLAN: Acute deep venous thrombosis of left lower extremity venous system POA Ultrasound of left lower extremity showed acute DVT of common femoral vein, superficial femoral vein, popliteal vein, posterior tibial vein, deep femoral vein, and great saphenous vein. On presentation PT 10.6, INR 1, APTT 25 Patient was started on heparin drip. Consulted IR for possible thrombolysis due to extensive nature of DVT on friday Monitor APTT per protocol. Possible cellulitis in the left inner thigh Patient had injury to left inner thigh 2 weeks back, pain and swelling progressed despite anti-inflammatory medication White count on presentation 8.5, lactic acid 1.2, CRP 12.30 Patient was started on Rocephin 2 g Q 24 H IV We will trend white count and lactic acid daily WBC today is 9.3 GI prophylaxis with Pepcid ATTESTATION BY PHYSICIAN I have seen and examined the patient. I reviewed the documentation, medical dec ision making, and treatment plan as noted by the resident provider above. I agree with the findings and plan of care. Jose Cortez MD, LAKSHMI MD Oct 29, 2025 09:20
--- NOTE | 2025-10-29 11:50 | PN ---
This is a female with no significant past medical history who presented to the hospital secondary to above pain and swelling in the left lower extremity. The patient states around two weeks ago she was spinning in the trauma to the left inner thigh while she was straining a broom. The broom had a metal wire which hit her left thigh. She initially had some ecchymosis on the left thigh and thereafter developed a swelling to the thigh area. She is able to ambulate and denies any falls with ambulation. She denies any symptoms on her right leg and denies sustaining any trauma to the right leg. She denied any melena, hematochezia, hematemesis. Denied any chest pain, shortness of breath, fever, chills. She initially seen in [facility] [place] one week ago and was diagnosed with piriformis syndrome. Her symptoms persisted and thereafter patient came to the hospital for further evaluation. Patient did receive dose of tetanus last month. Patient's labs were notable for white count of 8.5, hemoglobin was 13.2, platelet count was 270 K, sodium was 139, potassium was 4.1, creatinine was 0.7, troponin was negative x1, lactic acid was 1.2 Patient had venous Doppler which showed no evidence of DVT in the right lower extremity. There was evidence of superficial thrombophlebitis in the greater saphenous vein in the left lower extremity. Patient received Lovenox 80 mg of the ER PMH: Noncontributory PSH: noncontributory SH: noncontributory FH: noncontributory ALLERGIES: Coded Allergies: No Known Drug Allergies (Unverified Allergy, Unknown, 12/23/24) CURRENT MEDS: Current Medications Medications (Trade) Dose Ordered Sig/Tess Route PRN Reason Start Time Stop Time Status Last Admin Famotidine (Pepcid 20mg Vial) 20 mg BID IV 10/27/25 21:00 11/26/25 20:59 Acetaminophen (TYLenol 500MG TAB) 500 mg Q6H PRN PO MILD PAIN (1-3) 10/27/25 11:30 11/26/25 11:29 Potassium Chloride 100 ml @ 100 mls/hr AD PRN IV POTASSIUM PROTOCOL 10/27/25 11:30 11/26/25 11:29 Potassium Chloride (KCl 10% Elixir 20meq/15ml) 20 meq AD PRN PO POTASSIUM PROTOCOL 10/27/25 11:30 11/26/25 11:29 Potassium Chloride (K-Dur/Klor-Con 20meq) 20 meq AD PRN PO POTASSIUM PROTOCOL 10/27/25 11:30 11/26/25 11:29 Magnesium Sulfate 50 ml @ 0 mls/hr PROTOCOL PRN IV hypomagnesemia 10/27/25 11:30 11/26/25 11:29 Ceftriaxone Sodium (Rocephin 2gm Inj) 2 gm Q24H IVPB 10/28/25 09:00 11/07/25 08:59 Enoxaparin Sodium (Lovenox 80mg) 80 mg Q12H SQ 10/27/25 23:30 11/26/25 23:29 Morphine Sulfate (morPHINE 2MG SYG) 2 mg Q6H PRN IVP SEVERE PAIN (7-10) 10/27/25 14:00 11/03/25 13:59 REVIEW OF SYSTEMS CONSTITUTIONAL: FEVER; No FEVER; SWEATS; No SWEATS; CHILLS; No CHILLS, No WEIGHT LOSS HEENT: JAUNDICE; No JAUNDICE; SORE THROAT; No SORE THROAT; SINUS PRESSURE; No S INUS PRESSURE, No VISION CHANGES RESPIRATORY: COUGH; No COUGH; CHEST PAIN; No CHEST PAIN, No SHORTNESS OF BREATH, No HEMOPTYSIS CARDIOVASCULAR: PALPATIONS; No PALPATIONS, No DYSPNEA ON EXERTION, No SYNCOPE GASTROINTESTINAL: No NAUSEA, No VOMITING, No DIARRHEA, No DYSPHAGIA, No CONSTIPATION, No ABDOMINAL PAIN, No HEMATEMESIS, No HEMATOCHEZIA, No MELENA GENITOURINARY: No DYSURIA, No HEMATURIA HEMATOLOGIC/LYMPHATIC: No EASY BRUISING, No CERVICAL ADENOPATHY, No AXILLARY ADENOPATHY, No INGUINAL ADENOPATHY MUSCULOSKELETAL: BONE PAIN; No BONE PAIN, No MASS; NORMAL RANGE OF MOTION; No N ORMAL RANGE OF MOTION SKIN/BREASTS: BREAST MASS; No BREAST MASS, No NIPPLE INVERSION, No RASH NEUROLOGICAL: No WEAKNESS-EXTREMETIES, No DIPLOPIA, No NUMBNESS, No TINGLING PSYCHOLOGICAL: No SUICIDAL IDEATION PHYSICAL EXAM VITALS: Vital Signs Date Time Temp Pulse Resp B/P (MAP) Pulse Ox O2 Delivery O2 Flow Rate FiO2 10/27/25 16:06 98.6 75 18 112/64 100 Room Air 10/27/25 13:00 0 21 GENERAL: ALERT, ORIENTED, APPEARS-NO ACUTE DISTRESS EYES: SCLERAE ANICTERIC, PUPILS EQUAL/REACTIVE, EXTRAOCULAR MUSCLES INTCT ENT/NECK: ORAL MUCOSA W/O LESIONS, OROPHARYNX IS CLEAR, NECK SUPPLE W/O MASSES RESPIRATORY: LUNGS CLEAR-AUSC/PERCUS CARDIOVASCULAR: REGULAR RATE; No REGULAR RATE; REGULAR RHYTHM; No REGULAR RHYTHM GASTROINTESTINAL: ABDOMEN IS SOFT; No ABDOMEN IS SOFT, No TENDER, No DISTENDED, No HEPATOSPLENOMEGALY; BOWEL SOUNDS PRESENT; No PALPABLE MASSES HEMATOLOGY/LYMPHATIC: No CERVICAL ADENOPATHY, No SUPRACLAVICULR ADENOPATHY, No AXILLARY ADENOPATHY, No INGUINAL ADENOPATHY MUSCULOSKELETAL: EDEMA (left thigh erythema and edema with possible insect bite ) SKIN/BREASTS: MASSES; No MASSES, No RASH, No HIVES NEUROLOGICAL: GROSSLY INTACT PSYCHOLOGICAL: MINI MENTAL ASSMT INTACT Assessment 1. DVT to the left lower extremity with the patient on heparin drip. There is plan to do thrombectomy. 2. Left-sided cellulitis Plan 1. Patient to be continued on heparin drip. 2. IR consulted and there is plan for thrombectomy to be done Friday. 3. There was hypersegmented neutrophils. This patient to be started on folic acid 1 mg p.o. daily and vitamin B12 1000 mcg p.o. daily. 4. Continue antibiotic treatment as per primary. Vitals/Labs Vital Signs Date Time Temp Pulse Resp B/P (MAP) Pulse Ox O2 Delivery O2 Flow Rate FiO2 10/29/25 08:00 98.1 77 16 120/75 98 Room Air 10/28/25 20:00 0 21 Laboratory Tests 10/28/25 13:12 10/29/25 04:40 Medications Current Medications Lidocaine 1 patch ONCE STAT TP; Start 10/27/25 at 09:08; Stop 10/27/25 at 09:16; Status DC Ketorolac Tromethamine 30 mg ONCE ONCE IM; Start 10/27/25 at 09:30; Stop 10/27/25 at 09:16; Status DC Ceftriaxone Sodium 2 gm ONCE STAT IVPB Last administered on 10/27/25at 09:52; Start 10/27/25 at 09:15; Stop 10/27/25 at 09:18; Status DC Vancomycin HCl 1 gm ONCE STAT IV Last administered on 10/27/25at 10:53; Start 10/27/25 at 09:15; Stop 10/27/25 at 09:19; Status DC Morphine Sulfate 4 mg ONCE STAT IVP Last administered on 10/27/25at 09:52; Start 10/27/25 at 09:17; Stop 10/27/25 at 09:19; Status DC Ondansetron HCl 4 mg ONCE STAT IVP Last administered on 10/27/25at 09:51; Start 10/27/25 at 09:17; Stop 10/27/25 at 09:19; Status DC Enoxaparin Sodium 80 mg ONCE STAT SQ Last administered on 10/27/25at 11:32; Start 10/27/25 at 10:25; Stop 10/27/25 at 10:29; Status DC Famotidine 20 mg BID IV Last administered on 10/29/25at 08:39; Start 10/27/25 at 21:00; Stop 11/26/25 at 20:59 Acetaminophen 500 mg Q6H PRN PO; Start 10/27/25 at 11:30; Stop 11/26/25 at 11:29 Potassium Chloride 100 ml @ 100 mls/hr AD PRN IV; Start 10/27/25 at 11:30; Stop 11/26/25 at 11:29 Potassium Chloride 20 meq AD PRN PO; Start 10/27/25 at 11:30; Stop 11/26/25 at 11:29 Potassium Chloride 20 meq AD PRN PO; Start 10/27/25 at 11:30; Stop 11/26/25 at 11:29 Magnesium Sulfate 50 ml @ 0 mls/hr PROTOCOL PRN IV; Start 10/27/25 at 11:30; Stop 11/26/25 at 11:29 Ceftriaxone Sodium 2 gm Q24H IVPB Last administered on 10/29/25at 08:39; Start 10/28/25 at 09:00; Stop 11/07/25 at 08:59 Enoxaparin Sodium 80 mg Q12H SQ Last administered on 10/27/25at 23:38; Start 10/27/25 at 23:30; Stop 10/28/25 at 12:41; Status DC Morphine Sulfate 2 mg Q6H PRN IVP; Start 10/27/25 at 14:00; Stop 11/03/25 at 13:59 Heparin Sodium (Porcine) *calculation based on ACTUAL B... AD PRN IV; Start 10/28/25 at 13:30; Stop 11/27/25 at 13:29 Heparin Sodium/ Dextrose 250 ml @ 0 mls/hr Q6H IV Last administered on 10/29/25at 11:38; Start 10/28/25 at 13:30; Stop 11/27/25 at 13:29 Lidocaine HCl 50 ml STK-MED ONCE .ROUTE; Start 10/28/25 at 13:56; Stop 10/28/25 at 13:56; Status DC Iodixanol 100 ml STK-MED ONCE .ROUTE; Start 10/28/25 at 13:56; Stop 10/28/25 at 13:56; Status DC Heparin Sodium/ Sodium Chloride 0 ml @ As Directed STK-MED ONCE IV; Start 10/28/25 at 13:56; Stop 10/28/25 at 13:56; Status DC Neomycin/ Polymyxin/ Bacitracin 1 appl DAILY TP Last administered on 10/29/25at 08:39; Start 10/28/25 at 17:00; Stop 11/27/25 at 16:59 Iohexol 75 ml STK-MED ONCE IV; Start 10/28/25 at 18:24; Stop 10/28/25 at 18:25; Status DC PAULINE LEAL MD Oct 29, 2025 11:50
--- NOTE | 2025-10-29 12:14 | HMCIMG ---
EXAMINATION: CT Left Lower Extremity without and with intravenous contrast CLINICAL HISTORY: Suspected cellulitis. TECHNIQUE: Multiphase CT of the left lower extremity performed without and with intravenous contrast. CONTRAST: Intravenous contrast administered. COMPARISON: None. FINDINGS: BONES: No acute fracture or aggressive osseous lesion. JOINTS: No joint effusion or osseous erosion. SOFT TISSUES: No discrete drainable fluid collection or abscess. No myositis or fascial involvement. Moderate diffuse subcutaneous edema involves the anterior, medial, and lateral thigh as well as the circumferential leg. Hindfoot Cutaneous thickening accompanies the edema. VASCULATURE: No deep vein thrombosis or arterial abnormality. LYMPH NODES: No inguinal lymphadenopathy. IMPRESSION:Moderate diffuse subcutaneous edema of the left thigh and leg, with cutaneous thickening of the hindfoot, consistent with cellulitis. No discrete drainable fluid collection or abscess. No acute osseous injury, soft tissue abscess, or deep vein thrombosis. /[place]
[2025-10-30] VITALS (8 sets, daily range): BP systolic 95–141; BP diastolic 61–83; PULSE 64–75; RESP 16–18; TEMP 97.4–98.3; O2SAT 98–99
[2025-10-30 05:36] LABS: IMMATURE GRANULOCYTE ABSOLUTE 0.03 K/uL (0-1); NUCLEATED RED BLOOD CELLS 0.0 % (0.0-0.19); PLATELET COUNT (AUTO) 248 K/uL (130-400); RED BLOOD CELL COUNT(AUTO) 3.80 MIL/uL (4.00-5.50); RED CELL DISTRIBUTION WIDTH 11.8 % (11.0-15.5); WHITE BLOOD COUNT (AUTO) 8.2 K/uL (4.8-10.8)
[2025-10-30 05:48] LABS: CREATININE 0.8 mg/dL (0.5-1.0); GLOMERULAR FILTR. RATE CALC 97.0 mL/min (>90); GLUCOSE,RANDOM 98.0 mg/dL (70-105); SODIUM SERUM 139.0 mmol/L (136-145); UREA NITROGEN, BLOOD 12.0 mg/dL (7-18)
[2025-10-30 05:53] LABS: INR 0.99 (0.85-1.15)
--- NOTE | 2025-10-30 10:58 | PN ---
This is a female with no significant past medical history who presented to the hospital secondary to above pain and swelling in the left lower extremity. The patient states around two weeks ago she was spinning in the trauma to the left inner thigh while she was straining a broom. The broom had a metal wire which hit her left thigh. She initially had some ecchymosis on the left thigh and thereafter developed a swelling to the thigh area. She is able to ambulate and denies any falls with ambulation. She denies any symptoms on her right leg and denies sustaining any trauma to the right leg. She denied any melena, hematochezia, hematemesis. Denied any chest pain, shortness of breath, fever, chills. She initially seen in [facility] one week ago and was diagnosed with piriformis syndrome. Her symptoms persisted and thereafter patient came to the hospital for further evaluation. Patient did receive dose of tetanus last month. Patient's labs were notable for white count of 8.5, hemoglobin was 13.2, platelet count was 270 K, sodium was 139, potassium was 4.1, creatinine was 0.7, troponin was negative x1, lactic acid was 1.2 Patient had venous Doppler which showed no evidence of DVT in the right lower extremity. There was evidence of superficial thrombophlebitis in the greater saphenous vein in the left lower extremity. Patient is receiving heparin drip. There is plan for thrombectomy to be done tomorrow PHYSICAL EXAM GENERAL: ALERT, ORIENTED, APPEARS-NO ACUTE DISTRESS EYES: SCLERAE ANICTERIC, PUPILS EQUAL/REACTIVE, EXTRAOCULAR MUSCLES INTCT ENT/NECK: ORAL MUCOSA W/O LESIONS, OROPHARYNX IS CLEAR, NECK SUPPLE W/O MASSES RESPIRATORY: LUNGS CLEAR-AUSC/PERCUS CARDIOVASCULAR: REGULAR RATE; No REGULAR RATE; REGULAR RHYTHM; No REGULAR RHYTHM GASTROINTESTINAL: ABDOMEN IS SOFT; No ABDOMEN IS SOFT, No TENDER, No DISTENDED, No HEPATOSPLENOMEGALY; BOWEL SOUNDS PRESENT; No PALPABLE MASSES HEMATOLOGY/LYMPHATIC: No CERVICAL ADENOPATHY, No SUPRACLAVICULR ADENOPATHY, No AXILLARY ADENOPATHY, No INGUINAL ADENOPATHY MUSCULOSKELETAL: EDEMA (left thigh erythema and edema with possible insect bite ) SKIN/BREASTS: MASSES; No MASSES, No RASH, No HIVES NEUROLOGICAL: GROSSLY INTACT PSYCHOLOGICAL: MINI MENTAL ASSMT INTACT Assessment 1. DVT to the left lower extremity with the patient on heparin drip. There is plan to do thrombectomy to be done in am. 2. Left-sided cellulitis Plan 1. Patient to be continued on heparin drip. 2. IR consulted and there is plan for thrombectomy to be done Friday. 3. There was hypersegmented neutrophils. This patient to be started on folic acid 1 mg p.o. daily and vitamin B12 1000 mcg p.o. daily. 4. Continue antibiotic treatment as per primary. Vitals/Labs Vital Signs Date Time Temp Pulse Resp B/P (MAP) Pulse Ox O2 Delivery O2 Flow Rate FiO2 10/30/25 05:09 98.2 72 17 95/61 100 Room Air 10/29/25 20:00 0 21 Laboratory Tests 10/30/25 05:06 Medications Current Medications Lidocaine 1 patch ONCE STAT TP; Start 10/27/25 at 09:08; Stop 10/27/25 at 09:16; Status DC Ketorolac Tromethamine 30 mg ONCE ONCE IM; Start 10/27/25 at 09:30; Stop 10/27/25 at 09:16; Status DC Ceftriaxone Sodium 2 gm ONCE STAT IVPB Last administered on 10/27/25at 09:52; Start 10/27/25 at 09:15; Stop 10/27/25 at 09:18; Status DC Vancomycin HCl 1 gm ONCE STAT IV Last administered on 10/27/25at 10:53; Start 10/27/25 at 09:15; Stop 10/27/25 at 09:19; Status DC Morphine Sulfate 4 mg ONCE STAT IVP Last administered on 10/27/25at 09:52; Start 10/27/25 at 09:17; Stop 10/27/25 at 09:19; Status DC Ondansetron HCl 4 mg ONCE STAT IVP Last administered on 10/27/25at 09:51; Start 10/27/25 at 09:17; Stop 10/27/25 at 09:19; Status DC Enoxaparin Sodium 80 mg ONCE STAT SQ Last administered on 10/27/25at 11:32; Start 10/27/25 at 10:25; Stop 10/27/25 at 10:29; Status DC Famotidine 20 mg BID IV Last administered on 10/30/25at 07:45; Start 10/27/25 at 21:00; Stop 11/26/25 at 20:59 Acetaminophen 500 mg Q6H PRN PO Last administered on 10/29/25at 17:46; Start 10/27/25 at 11:30; Stop 11/26/25 at 11:29 Potassium Chloride 100 ml @ 100 mls/hr AD PRN IV; Start 10/27/25 at 11:30; Stop 11/26/25 at 11:29 Potassium Chloride 20 meq AD PRN PO; Start 10/27/25 at 11:30; Stop 11/26/25 at 11:29 Potassium Chloride 20 meq AD PRN PO; Start 10/27/25 at 11:30; Stop 11/26/25 at 11:29 Magnesium Sulfate 50 ml @ 0 mls/hr PROTOCOL PRN IV; Start 10/27/25 at 11:30; Stop 11/26/25 at 11:29 Ceftriaxone Sodium 2 gm Q24H IVPB Last administered on 10/30/25at 07:45; Start 10/28/25 at 09:00; Stop 11/07/25 at 08:59 Enoxaparin Sodium 80 mg Q12H SQ Last administered on 10/27/25at 23:38; Start 10/27/25 at 23:30; Stop 10/28/25 at 12:41; Status DC Morphine Sulfate 2 mg Q6H PRN IVP; Start 10/27/25 at 14:00; Stop 11/03/25 at 13:59 Heparin Sodium (Porcine) *calculation based on ACTUAL B... AD PRN IV; Start 10/28/25 at 13:30; Stop 11/27/25 at 13:29 Heparin Sodium/ Dextrose 250 ml @ 0 mls/hr Q6H IV Last administered on 10/30/25at 07:58; Start 10/28/25 at 13:30; Stop 11/27/25 at 13:29 Lidocaine HCl 50 ml STK-MED ONCE .ROUTE; Start 10/28/25 at 13:56; Stop 10/28/25 at 13:56; Status DC Iodixanol 100 ml STK-MED ONCE .ROUTE; Start 10/28/25 at 13:56; Stop 10/28/25 at 13:56; Status DC Heparin Sodium/ Sodium Chloride 0 ml @ As Directed STK-MED ONCE IV; Start 10/28/25 at 13:56; Stop 10/28/25 at 13:56; Status DC Neomycin/ Polymyxin/ Bacitracin 1 appl DAILY TP Last administered on 10/30/25at 07:45; Start 10/28/25 at 17:00; Stop 11/27/25 at 16:59 Iohexol 75 ml STK-MED ONCE IV; Start 10/28/25 at 18:24; Stop 10/28/25 at 18:25; Status DC PAULINE LEAL MD Oct 30, 2025 10:58
--- NOTE | 2025-10-30 16:22 | PN ---
[facility] PROGRESS NOTE Date of Service: Oct 30, 2025 Time of Service: 16:15 SUBJECTIVE: HISTORY OF PRESENT ILLNESS: This is a female with no significant past medical history who presented to the hospital secondary to above pain and swelling in the left lower extremity. The patient states around two weeks ago she was spinning in the trauma to the left inner thigh while she was straining a broom. The broom had a metal wire which hit her left thigh. She initially had some ecchymosis on the left thigh and thereafter developed a swelling to the thigh area. She is able to ambulate and denies any falls with ambulation. She denies any symptoms on her right leg and denies sustaining any trauma to the right leg. She denied any melena, hematoc hezia, hematemesis. Denied any chest pain, shortness of breath, fever, chills. She initially seen in [facility] one week ago and was diagnosed with piriformis syndrome. Her symptoms persisted and thereafter patient came to the hospital for further evaluation. Patient did receive dose of tetanus last month. Patient's labs were notable for white count of 8.5, hemoglobin was 13.2, maryanne telet count was 270 K, sodium was 139, potassium was 4.1, creatinine was 0.7, troponin was negative x1, lactic acid was 1.2 Patient had venous Doppler which showed no evidence of DVT in the right lower extremity. There was evidence of superficial thrombophlebitis in the greater saphenous vein in the left lower extremity. Patient received Lovenox 80 mg of the ER. Patient was admitted for further medical management. 10/28/2025: Patient was seen and evaluated this morning, no family at bedside. Patient is awake, alert, oriented x3, saturating 99% with room air. Patient complains of pain and swelling of left lower extremity. Repeat ultrasound venous Doppler of left lower extremity performed on 10/28/2025 showed acute deep venous thrombosis of common femoral vein, superficial femoral vein, popliteal vein, posterior tibial vein, deep femoral vein, and great saphenous vein. Patient was started on heparin drip, IR consultation was made for possible thrombolysis due to extensive DVT. Blood culture showed no growth after 24 hours. Continue Rocephin, Pepcid. 10/29/2025: Patient is seen and evaluated in room 407. Patient reports no concerns or complaints. She states she cannot move much because of her leg. She understands that she has a clot in her veins, which will be removed on Friday. She is currently on a heparin drip to prevent further clotting. After the p rocedure, she will transition to oral or injectable anticoagulation. Patient had Xulane ( 150/35) implant for contraception, which could probably be the reason for hypercoagulable state, for now we are not removing the implant as patient may bleed heavily once removed as patient is currently on heparin drip. Labs are overall within normal limits; platelet count is 260, and current APTT is 36.8, likely affected by the heparin drip. 10/30/2025: Patient evaluated this morning and found resting comfortably. Vital signs stable, though blood pressure is mildly elevated at 141/72. Left lower extremity continues to show erythema, warmth, and swelling, consistent with ongoing cellulitis and known DVT. The patient denies pain or new symptoms. She remains on a heparin drip for anticoagulation management to of her documented DVT and continues on ceftriaxone for cellulitis treatment. Blood culture remain negative with no growth to date. Laboratory results from today show: WBC 8.2, hemoglobin 11.4, platelets 248, sodium within normal limits. Tomorrow, interventional radiology is scheduled to perform catheter directed thrombolysis for her DVT. In preparation, the patient will be placed NPO tonight. REVIEW OF SYSTEMS CONSTITUTIONAL: Denies fevers, chills, or night sweats. No unintentional weight loss reported. NEUROLOGICAL: Denies headache, amaurosis fugax, motor weakness, sensory deficit, vertigo/spinning sensation, gait abnormalities, or tremors. ENT: No hearing loss, otalgia, otorrhea, rhinitis, rhinorrhea, hoarseness, or sore throat. CARDIOVASCULAR: Denies any exertional angina, dyspnea on exertion, orthopnea, paroxysmal nocturnal dyspnea, palpitations, life-threatening arrhythmias, claudication. PULMONARY: Denies any shortness of breath, cough, phlegm/sputum, hemoptysis, pleuritic chest pain. SLEEP: Denies morning headaches, daytime somnolence or napping. Denies difficulty falling asleep, staying asleep, waking from sleep. Denies knowledge of snoring. GASTROINTESTINAL: Denies any type of dysphagia to either liquids or solids. Denies nausea, vomiting, pyrosis, early satiety, abdominal pain, diarrhea, constipation, or changes in stool consistency or caliber. Denies coffee-ground emesis, hematemesis, hematochezia, or melanotic stools. GENITOURINARY: Denies frequency, urgency, nocturia, hematuria or incontinence (Storage/Irritative symptoms.) Low urinary stream, straining to void, urinary intermittency or hesitancy, splitting of the voiding stream, terminal dribbling. ENDOCRINOLOGIC: Denies polyuria, polydipsia, polyphagia or heat/cold intolerances. HEMATOLOGIC: Denies thrombophilia/previous clots, or coagulopathy/bleeding disorders. Patient has DVT in left lower extremity venous system ONCOLOGIC: Denies personal history of malignancy. DERMATOLOGIC: Denies rashes or pruritus. PSYCHIATRIC: Denies any suicidal or homicidal ideation. Denies hallucinations. Musculoskeletal: Pain and swelling in the left lower extremity PHYSICAL EXAM GENERAL APPEARANCE: The patient is awake, alert, and oriented, in no acute cardiopulmonary distress. NEUROLOGICAL: Cranial nerves II-XII grossly intact. Motor is 5/5 in bilateral upper and lower extremities proximal to distal. No sensory deficits. HEENT: Face is symmetric. Pupils are equal and reactive. Extraocular movements are intact. NECK: Supple. No JVD. No thyromegaly. No submental, submandibular, pre- /postauricular, occipital or supraclavicular lymphadenopathy. CHEST: Normal chest expansion. No Telemetry. LUNGS: Absence of any rales, rhonchi or any wheezing. CARDIOVASCULAR: Regular. S1 and S2 normal. No appreciable rubs, murmurs or gallops. ABDOMEN: Soft, nontender, and nondistended. There is no rebound, voluntary guarding, or rigidity. : Deferred. No [place]. EXTREMITIES: There is a small open wound in the left inner thigh. There is some induration around the inner thigh area. There is swelling in the left lower extremity with 1+ pitting edema. Right leg looks okay SKIN: No skin breakdown. Vital Signs (last 8hr) Date Time Temp Pulse Resp B/P (MAP) Pulse Ox O2 Delivery O2 Flow Rate FiO2 10/30/25 12:00 98.2 72 18 141/72 97 Room Air LABS: Laboratory: Test 10/30/25 09:41 10/30/25 05:06 Range/Units Activated Partial Thromboplast Time 53.7 H 26.3-35.5 SEC White Blood Count 8.2 4.8-10.8 K/uL Red Blood Count 3.80 L 4.00-5.50 MIL/uL Hemoglobin 11.4 L 12.0-16.0 g/dL Hematocrit 33.4 L 36-48 % Mean Corpuscular Volume 87.9 79-99 fL Mean Corpuscular Hemoglobin 30.0 27.0-33.0 pg Mean Corpuscular Hemoglobin Concent 34.1 32.0-36.0 g/dL Red Cell Distribution Width 11.8 11.0-15.5 % Platelet Count 248 130-400 K/uL Mean Platelet Volume 9.0 7.5-10.5 fL Immature Granulocyte % (Auto) 0.4 0-1 % Neutrophils (%) (Auto) 58.1 40.0-77.0 % Lymphocytes (%) (Auto) 30.8 21.0-51.0 % Monocytes (%) (Auto) 5.8 3.0-13.0 % Eosinophils (%) (Auto) 3.9 0.0-8.0 % Basophils (%) (Auto) 1.0 0.0-5.0 % Neutrophils # (Auto) 4.7 1.8-7.7 K/uL Lymphocytes # (Auto) 2.5 1.0-4.8 K/uL Monocytes # (Auto) 0.5 0.1-1.0 K/uL Eosinophils # (Auto) 0.32 0.00-0.70 K/uL Basophils # (Auto) 0.08 0.00-0.20 K/uL Absolute Immature Granulocyte (auto 0.03 0-1 K/uL Nucleated Red Blood Cells 0.0 0.0-0.19 % Prothrombin Time 10.5 9.6-11.6 SEC Prothromb Time International Ratio 0.99 0.85-1.15 Sodium Level 139 136-145 mmol/L Potassium Level 3.9 3.5-5.1 mmol/L Chloride Level 104 101-111 mmol/L Carbon Dioxide Level 26 21-32 mmol/L Blood Urea Nitrogen 12 7-18 mg/dL Creatinine 0.8 0.5-1.0 mg/dL Glomerular Filtration Rate Calc 97 >90 mL/min Random Glucose 98 70-105 mg/dL Total Calcium 8.2 L 8.5-10.1 mg/dL Current Medications Medications (Trade) Dose Ordered Sig/Tess Route PRN Reason Start Time Stop Time Status Last Admin Dose Admin Acetaminophen (TYLenol 500MG TAB) 500 mg Q6H PRN PO MILD PAIN (1-3) 10/27/25 11:30 11/26/25 11:29 10/29/25 17:46 500 MG Ceftriaxone Sodium (Rocephin 2gm Inj) 2 gm ONCE STAT IVPB 10/27/25 09:15 10/27/25 09:18 DC 10/27/25 09:52 2 GM Ceftriaxone Sodium (Rocephin 2gm Inj) 2 gm Q24H IVPB 10/28/25 09:00 11/07/25 08:59 10/30/25 07:45 2 GM Enoxaparin Sodium (Lovenox 80mg) 80 mg ONCE STAT SQ 10/27/25 10:25 10/27/25 10:29 DC 10/27/25 11:32 80 MG Enoxaparin Sodium (Lovenox 80mg) 80 mg Q12H SQ 10/27/25 23:30 10/28/25 12:41 DC 10/27/25 23:38 80 MG Famotidine (Pepcid 20mg Vial) 20 mg BID IV 10/27/25 21:00 11/26/25 20:59 10/30/25 07:45 20 MG Heparin Sodium (Porcine) (HEParin 5,000 UNIT VIAL) *calculation based on ACTUAL B... AD PRN IV HEPARIN PROTOCOL 10/28/25 13:30 11/27/25 13:29 Heparin Sodium/ Dextrose 250 ml @ 0 mls/hr Q6H IV 10/28/25 13:30 11/27/25 13:29 10/30/25 13:39 14.98 MLS/HR Lidocaine (Lidoderm Patch 5%) 1 patch ONCE STAT TP 10/27/25 09:08 10/27/25 09:16 DC Magnesium Sulfate 50 ml @ 0 mls/hr PROTOCOL PRN IV hypomagnesemia 10/27/25 11:30 11/26/25 11:29 Morphine Sulfate (morPHINE 2MG SYG) 2 mg Q6H PRN IVP SEVERE PAIN (7-10) 10/27/25 14:00 11/03/25 13:59 Morphine Sulfate (morPHINE 4MG SYG) 4 mg ONCE STAT IVP 10/27/25 09:17 10/27/25 09:19 DC 10/27/25 09:52 4 MG Neomycin/ Polymyxin/ Bacitracin (Triple Antibiotic Ointment) 1 appl DAILY TP 10/28/25 17:00 11/27/25 16:59 10/30/25 07:45 1 APPL Ondansetron HCl (zoFRAN 4MG INJ) 4 mg ONCE STAT IVP 10/27/25 09:17 10/27/25 09:19 DC 10/27/25 09:51 4 MG Potassium Chloride 100 ml @ 100 mls/hr AD PRN IV POTASSIUM PROTOCOL 10/27/25 11:30 11/26/25 11:29 Potassium Chloride (K-Dur/Klor-Con 20meq) 20 meq AD PRN PO POTASSIUM PROTOCOL 10/27/25 11:30 11/26/25 11:29 Potassium Chloride (KCl 10% Elixir 20meq/15ml) 20 meq AD PRN PO POTASSIUM PROTOCOL 10/27/25 11:30 11/26/25 11:29 Vancomycin HCl (Vancomycin 1g/ 250ml Kit) 1 gm ONCE STAT IV 10/27/25 09:15 10/27/25 09:19 DC 10/27/25 10:53 1 GM DIAGNOSTICS / RADIOLOGY: [ ] ASSESSMENT: Acute deep venous thrombosis of left lower extremity venous system POA Left symptomatic superficial thrombophlebitis of the greater saphenous vein secondary to trauma POA Small open wound in left inner thigh secondary to trauma Possible cellulitis in the left inner thigh PLAN: Acute deep venous thrombosis of left lower extremity venous system POA Ultrasound of left lower extremity showed acute DVT of common femoral vein, superficial femoral vein, popliteal vein, posterior tibial vein, deep femoral vein, and great saphenous vein. On presentation PT 10.6, INR 1, APTT 25 Patient was started on heparin drip. Consulted IR for possible thrombolysis due to extensive nature of DVT tomorrow. Monitor APTT per protocol. Possible cellulitis in the left inner thigh Patient had injury to left inner thigh 2 weeks back, pain and swelling progressed despite anti-inflammatory medication White count on presentation 8.5, lactic acid 1.2, CRP 12.30 Patient was started on Rocephin 2 g Q 24 H IV We will trend white count and lactic acid daily WBC today is 9.3 GI prophylaxis with Pepcid ATTESTATION BY PHYSICIAN I have seen and examined the patient. I reviewed the documentation, medical decision making, and treatment plan as noted by the resident physician above. I agree with the findings and plan of care. LEVY RODRIGUEZ MD, GERARDO MD Oct 30, 2025 16:22
[2025-10-30 19:11] LABS: DRVVT-LUPUS ANTICOAGULANT 34.7 sec (0.0-47.0)
[2025-10-31] VITALS (36 sets, daily range): BP systolic 107–145; BP diastolic 58–88; PULSE 66–88; RESP 12–27; TEMP 97.9–99; O2SAT 96–98
[2025-10-31 03:37] LABS: IMMATURE GRANULOCYTE ABSOLUTE 0.02 K/uL (0-1); NUCLEATED RED BLOOD CELLS 0.0 % (0.0-0.19); PLATELET COUNT (AUTO) 235 K/uL (130-400); RED BLOOD CELL COUNT(AUTO) 3.78 MIL/uL (4.00-5.50); RED CELL DISTRIBUTION WIDTH 11.7 % (11.0-15.5); WHITE BLOOD COUNT (AUTO) 9.3 K/uL (4.8-10.8)
[2025-10-31 03:51] LABS: ASPARTATE AMINOTRANSFERASE 31.0 U/L (10-37); CREATININE 0.8 mg/dL (0.5-1.0); GLOMERULAR FILTR. RATE CALC 97.0 mL/min (>90); GLUCOSE,RANDOM 99.0 mg/dL (70-105); SODIUM SERUM 137.0 mmol/L (136-145); TOTAL PROTEIN, SERUM 7.1 g/dL (6.0-8.3); UREA NITROGEN, BLOOD 13.0 mg/dL (7-18)
[2025-10-31] MEDS ORDERED: HEParin-NS 1,000 UNIT/500 ML 500 ML IV ONE (13:38)
[2025-10-31] MEDS ORDERED: LIDOCAINE HCL 1% MDV 50ML VIAL ONE (13:38)
[2025-10-31] MEDS ORDERED: IODIXANOL 320 MG/ML 100 ML VIAL ONE (13:38)
[2025-10-31] MEDS ORDERED: MIDAZOLAM HCL 1 MG/ML 2ML VIAL ONE ×3 (13:43→14:14)
--- NOTE | 2025-10-31 14:59 | NUR ---
PATIENT TRANSFERRED TO 2ND FLOOR FROM THROMBOLISIS VASCULAR PROCEDURE. REPORT GIVEN AT THIS TIME.
[2025-10-31] MEDS ORDERED: PHARMACY COMMUNICATION MISC SCH (15:30)
--- NOTE | 2025-10-31 16:33 | CCATH ---
STUDY: * Percutaneous ultrasound and fluoroscopy guided thrombectomy of left popliteal vein, left superficial femoral vein, left common femoral vein extending to left external iliac vein. * Venogram pre and post thrombectomy. IV conscious sedation was titrated with fentanyl 200 mcg and Versed 6 mg. DESCRIPTION OF PROCEDURE: After the patient was placed in prone position, the left popliteal vein under ultrasound guidance was accessed using a micropuncture device. Through this, attempted placement of a 16-[place] sheath. A venogram was performed. This demonstrated a large clot load the entire length of the left superficial femoral vein, left popliteal vein extending to left common femoral vein and external iliac vein. A 16-[place] Inari sheath was introduced, which was defective, was exchanged to a 13-[place] Inari sheath. Through this, using a 13-[place] Inari ClotTriever was employed over an angiographic wire and a total of 10 passes were made with large amounts of clots removed. Post removal, there is some residual clot seen. There is also the patient has a known calf pain. Therefore, we will infuse tPA 2 mg per hour for the next 24 hours and the patient is to return for a venogram. The left leg venogram demonstrates with minimal clot seen in the left superficial femoral vein, femoral vein, and iliac vein. Therefore, 13 cm length was left in place. IMPRESSION: Mechanical lysis using an [place] device, but 10 passes made with large amount of clot removed. Some of the clots appear to be organized suggesting of acute and chronic clots. A 16-[place] sheath was then left in the left popliteal vein and the tPA will be infused through this. The patient is to return in 24 hours. TID: [id number] RECEIPT: [id number]
[2025-10-31 16:40] LABS: INR 1.11 (0.85-1.15)
--- NOTE | 2025-10-31 17:08 | PN ---
[facility] PROGRESS NOTE Date of Service: Oct 31, 2025 Time of Service: 17:08 SUBJECTIVE: HISTORY OF PRESENT ILLNESS: This is a female with no significant past medical history who presented to the hospital secondary to above pain and swelling in the left lower extremity. The patient states around two weeks ago she was spinning in the trauma to the left inner thigh while she was straining a broom. The broom had a metal wire which hit her left thigh. She initially had some ecchymosis on the left thigh and thereafter developed a swelling to the thigh area. She is able to ambulate and denies any falls with ambulation. She denies any symptoms on her right leg and denies sustaining any trauma to the right leg. She denied any melena, hematoc hezia, hematemesis. Denied any chest pain, shortness of breath, fever, chills. She initially seen in [facility] one week ago and was diagnosed with piriformis syndrome. Her symptoms persisted and thereafter patient came to the hospital for further evaluation. Patient did receive dose of tetanus last month. Patient's labs were notable for white count of 8.5, hemoglobin was 13.2, maryanne telet count was 270 K, sodium was 139, potassium was 4.1, creatinine was 0.7, troponin was negative x1, lactic acid was 1.2 Patient had venous Doppler which showed no evidence of DVT in the right lower extremity. There was evidence of superficial thrombophlebitis in the greater saphenous vein in the left lower extremity. Patient received Lovenox 80 mg of the ER. Patient was admitted for further medical management. 10/28/2025: Patient was seen and evaluated this morning, no family at bedside. Patient is awake, alert, oriented x3, saturating 99% with room air. Patient complains of pain and swelling of left lower extremity. Repeat ultrasound venous Doppler of left lower extremity performed on 10/28/2025 showed acute deep venous thrombosis of common femoral vein, superficial femoral vein, popliteal vein, posterior tibial vein, deep femoral vein, and great saphenous vein. Patient was started on heparin drip, IR consultation was made for possible thrombolysis due to extensive DVT. Blood culture showed no growth after 24 hours. Continue Rocephin, Pepcid. 10/29/2025: Patient is seen and evaluated in room 407. Patient reports no concerns or complaints. She states she cannot move much because of her leg. She understands that she has a clot in her veins, which will be removed on Friday. She is currently on a heparin drip to prevent further clotting. After the p rocedure, she will transition to oral or injectable anticoagulation. Patient had Xulane ( 150/35) implant for contraception, which could probably be the reason for hypercoagulable state, for now we are not removing the implant as patient may bleed heavily once removed as patient is currently on heparin drip. Labs are overall within normal limits; platelet count is 260, and current APTT is 36.8, likely affected by the heparin drip. 10/30/2025: Patient evaluated this morning and found resting comfortably. Vital signs stable, though blood pressure is mildly elevated at 141/72. Left lower extremity continues to show erythema, warmth, and swelling, consistent with ongoing cellulitis and known DVT. The patient denies pain or new symptoms. She remains on a heparin drip for anticoagulation management to of her documented DVT and continues on ceftriaxone for cellulitis treatment. Blood culture remain negative with no growth to date. Laboratory results from today show: WBC 8.2, hemoglobin 11.4, platelets 248, sodium within normal limits. Tomorrow, interventional radiology is scheduled to perform catheter directed thrombolysis for her DVT. In preparation, the patient will be placed NPO tonight. 10/31/2025: Patient evaluated this morning and found resting comfortably. Vital signs stable. Her CRP levels have improved to 11.6 from 12.3 yesterday. Left lower extremity continues to show erythema, warmth, and swelling, consistent with ongoing cellulitis and known DVT. The patient denies pain or new symptoms. She remains on a heparin drip for anticoagulation management to of her documented DVT and continues on ceftriaxone for cellulitis treatment. Blood culture remain negative with no growth to date. Today she underwent thrombolysis for her DVT by interventional radiology. Per the radiologist she underwent " Mechanical lysis using an Inari device, but 10 passes made with large amount of clot removed. Some of the clots appear to be organized suggesting of acute and chronic clots. A 16-Persian sheath was then left in the left popliteal vein and the tPA will be infused through this. The patient is to return in 24 hours." REVIEW OF SYSTEMS CONSTITUTIONAL: Denies fevers, chills, or night sweats. No unintentional weight loss reported. NEUROLOGICAL: Denies headache, motor weakness, sensory deficit, vertigo/spinning sensation, gait abnormalities, or tremors. ENT: No hearing loss, rhinitis, rhinorrhea, hoarseness, or sore throat. CARDIOVASCULAR: Denies any exertional angina, dyspnea on exertion, orthopnea, paroxysmal nocturnal dyspnea, palpitations PULMONARY: Denies any shortness of breath, cough, phlegm/sputum, hemoptysis, pleuritic chest pain. GASTROINTESTINAL: Denies any type of dysphagia to either liquids or solids. Denies nausea, vomiting, abdominal pain, diarrhea, constipation, or changes in stool consistency or caliber. GENITOURINARY: Denies frequency, urgency, nocturia, hematuria or incontinence. ENDOCRINOLOGIC: Denies polyuria, polydipsia, polyphagia or heat/cold intolerances. DERMATOLOGIC: Denies rashes or pruritus. Musculoskeletal: Pain and swelling in the left lower extremity PHYSICAL EXAM GENERAL APPEARANCE: The patient is awake, alert, and oriented, in no acute cardiopulmonary distress. NEUROLOGICAL: Cranial nerves II-XII grossly intact. Motor is 5/5 in bilateral upper and lower extremities proximal to distal. No sensory deficits. HEENT: Face is symmetric. Pupils are equal and reactive. Extraocular movements are intact. NECK: Supple. No JVD. No thyromegaly. No submental, submandibular, pre- /postauricular, occipital or supraclavicular lymphadenopathy. CHEST: Normal chest expansion. No Telemetry. LUNGS: Absence of any rales, rhonchi or any wheezing. CARDIOVASCULAR: Regular. S1 and S2 normal. No appreciable rubs, murmurs or gallops. ABDOMEN: Soft, nontender, and nondistended. There is no rebound, voluntary guarding, or rigidity. : Deferred. No [place]. EXTREMITIES: There is a small open wound in the left inner thigh. There is some induration around the inner thigh area. There is swelling in the left lower extremity with 1+ pitting edema. Right leg looks okay SKIN: No skin breakdown. Vital Signs (last 8hr) Date Time Temp Pulse Resp B/P (MAP) Pulse Ox O2 Delivery O2 Flow Rate FiO2 10/31/25 16:35 98.6 10/31/25 16:30 69 12 137/76 96 Room Air 21 10/31/25 11:18 98.4 66 16 135/72 100 Room Air LABS: Laboratory: Test 10/31/25 16:23 10/31/25 03:23 Range/Units Prothrombin Time 11.6 9.6-11.6 SEC Prothromb Time International Ratio 1.11 0.85-1.15 Activated Partial Thromboplast Time 30.6 26.3-35.5 SEC Fibrinogen 260 180-350 mg/dL White Blood Count 9.3 4.8-10.8 K/uL Red Blood Count 3.78 L 4.00-5.50 MIL/uL Hemoglobin 11.1 L 12.0-16.0 g/dL Hematocrit 34.5 L 36-48 % Mean Corpuscular Volume 91.3 79-99 fL Mean Corpuscular Hemoglobin 29.4 27.0-33.0 pg Mean Corpuscular Hemoglobin Concent 32.2 32.0-36.0 g/dL Red Cell Distribution Width 11.7 11.0-15.5 % Platelet Count 235 130-400 K/uL Mean Platelet Volume 9.0 7.5-10.5 fL Immature Granulocyte % (Auto) 0.2 0-1 % Neutrophils (%) (Auto) 64.8 40.0-77.0 % Lymphocytes (%) (Auto) 26.5 21.0-51.0 % Monocytes (%) (Auto) 5.3 3.0-13.0 % Eosinophils (%) (Auto) 2.4 0.0-8.0 % Basophils (%) (Auto) 0.8 0.0-5.0 % Neutrophils # (Auto) 6.0 1.8-7.7 K/uL Lymphocytes # (Auto) 2.5 1.0-4.8 K/uL Monocytes # (Auto) 0.5 0.1-1.0 K/uL Eosinophils # (Auto) 0.22 0.00-0.70 K/uL Basophils # (Auto) 0.07 0.00-0.20 K/uL Absolute Immature Granulocyte (auto 0.02 0-1 K/uL Nucleated Red Blood Cells 0.0 0.0-0.19 % Sodium Level 137 136-145 mmol/L Potassium Level 3.8 3.5-5.1 mmol/L Chloride Level 103 101-111 mmol/L Carbon Dioxide Level 27 21-32 mmol/L Blood Urea Nitrogen 13 7-18 mg/dL Creatinine 0.8 0.5-1.0 mg/dL Glomerular Filtration Rate Calc 97 >90 mL/min Random Glucose 99 70-105 mg/dL Total Calcium 8.5 8.5-10.1 mg/dL Total Bilirubin 0.3 0.2-1.0 mg/dL Aspartate Amino Transf (AST/SGOT) 31 10-37 U/L Alanine Aminotransferase (ALT/SGPT) 27 12-78 U/L Alkaline Phosphatase 73 50-136 U/L C-Reactive Protein, Quantitative 11.60 H 0.5-3.0 mg/L Total Protein 7.1 6.0-8.3 g/dL Albumin 3.0 L 3.5-5.0 g/dL Procalcitonin < 0.05 L 0.05-0.5 ng/mL Current Medications Medications (Trade) Dose Ordered Sig/Tess Route PRN Reason Start Time Stop Time Status Last Admin Dose Admin Acetaminophen (TYLenol 500MG TAB) 500 mg Q6H PRN PO MILD PAIN (1-3) 10/27/25 11:30 11/26/25 11:29 10/29/25 17:46 500 MG Ceftriaxone Sodium (Rocephin 2gm Inj) 2 gm ONCE STAT IVPB 10/27/25 09:15 10/27/25 09:18 DC 10/27/25 09:52 2 GM Ceftriaxone Sodium (Rocephin 2gm Inj) 2 gm Q24H IVPB 10/28/25 09:00 11/07/25 08:59 10/31/25 09:47 2 GM Enoxaparin Sodium (Lovenox 80mg) 80 mg ONCE STAT SQ 10/27/25 10:25 10/27/25 10:29 DC 10/27/25 11:32 80 MG Enoxaparin Sodium (Lovenox 80mg) 80 mg Q12H SQ 10/27/25 23:30 10/28/25 12:41 DC 10/27/25 23:38 80 MG Famotidine (Pepcid 20mg Vial) 20 mg BID IV 10/27/25 21:00 11/26/25 20:59 10/31/25 09:47 20 MG Heparin Sodium (Porcine) (HEParin 5,000 UNIT VIAL) *calculation based on ACTUAL B... AD PRN IV HEPARIN PROTOCOL 10/28/25 13:30 11/27/25 13:29 Heparin Sodium/ Dextrose 250 ml @ 0 mls/hr Q6H IV 10/28/25 13:30 11/27/25 13:29 10/31/25 05:52 14.98 MLS/HR Lidocaine (Lidoderm Patch 5%) 1 patch ONCE STAT TP 10/27/25 09:08 10/27/25 09:16 DC Magnesium Sulfate 50 ml @ 0 mls/hr PROTOCOL PRN IV hypomagnesemia 10/27/25 11:30 11/26/25 11:29 Morphine Sulfate (morPHINE 2MG SYG) 2 mg Q6H PRN IVP SEVERE PAIN (7-10) 10/27/25 14:00 11/03/25 13:59 10/31/25 16:44 2 MG Morphine Sulfate (morPHINE 4MG SYG) 4 mg ONCE STAT IVP 10/27/25 09:17 10/27/25 09:19 DC 10/27/25 09:52 4 MG Neomycin/ Polymyxin/ Bacitracin (Triple Antibiotic Ointment) 1 appl DAILY TP 10/28/25 17:00 11/27/25 16:59 10/31/25 09:48 1 APPL Ondansetron HCl (zoFRAN 4MG INJ) 4 mg ONCE STAT IVP 10/27/25 09:17 10/27/25 09:19 DC 10/27/25 09:51 4 MG Pharmacy Profile Note (Pharmacy Communication) 1 each ONCE MISC 10/31/25 15:30 11/07/25 15:29 UNV Potassium Chloride 100 ml @ 100 mls/hr AD PRN IV POTASSIUM PROTOCOL 10/27/25 11:30 11/26/25 11:29 Potassium Chloride (K-Dur/Klor-Con 20meq) 20 meq AD PRN PO POTASSIUM PROTOCOL 10/27/25 11:30 11/26/25 11:29 Potassium Chloride (KCl 10% Elixir 20meq/15ml) 20 meq AD PRN PO POTASSIUM PROTOCOL 10/27/25 11:30 11/26/25 11:29 Vancomycin HCl (Vancomycin 1g/ 250ml Kit) 1 gm ONCE STAT IV 10/27/25 09:15 10/27/25 09:19 DC 10/27/25 10:53 1 GM DIAGNOSTICS / RADIOLOGY: [ ] ASSESSMENT: Acute deep venous thrombosis of left lower extremity venous system POA Left symptomatic superficial thrombophlebitis of the greater saphenous vein secondary to trauma POA Small open wound in left inner thigh secondary to trauma Possible cellulitis in the left inner thigh PLAN: Acute deep venous thrombosis of left lower extremity venous system POA Ultrasound of left lower extremity showed acute DVT of common femoral vein, superficial femoral vein, popliteal vein, posterior tibial vein, deep femoral vein, and great saphenous vein. On presentation PT 10.6, INR 1, APTT 25 Patient was started on heparin drip. Underwent Percutaneous ultrasound and fluoroscopy guided thrombectomy of left popliteal vein, left superficial femoral vein, left common femoral vein extending to left external iliac vein. Monitor APTT per protocol. Possible cellulitis in the left inner thigh Patient had injury to left inner thigh 2 weeks back, pain and swelling progressed despite anti-inflammatory medication White count on presentation 8.5, lactic acid 1.2, CRP 12.30, today white count at 9.3, and CRP at 11.60 Continue Patient on Rocephin 2 g Q 24 H IV WBC today is 9.3 GI prophylaxis with Pepcid ATTESTATION BY PHYSICIAN I have seen and examined the patient. I reviewed the documentation, medical decision making, and treatment plan as noted by the resident physician above. I agree with the findings and plan of care. LEVY RODRIGUEZ MD, ABHINAV MD Oct 31, 2025 17:08
--- NOTE | 2025-10-31 17:11 | NUR ---
CM NOTE CM spoke to Dr. Avila regarding discharge medications for patient. States plan is for Eliquis 10 mg PO BID for one week and then Eliquis 5 mg PO BID for three months. states patient can f/u at his office for one month supply of samples. Patient is to be given Eliquis coupon to cover one month and will need to private pay for the remaining 3rd month of the prescription. CM to obtain private pay pricing for Eliquis at [facility] outpatient pharmacy. Patient transferred to ICU post procedure. CM to f/u.
--- NOTE | 2025-10-31 18:17 | PN ---
This is a female with no significant past medical history who presented to the hospital secondary to above pain and swelling in the left lower extremity. The patient states around two weeks ago she was spinning in the trauma to the left inner thigh while she was straining a broom. The broom had a metal wire which hit her left thigh. She initially had some ecchymosis on the left thigh and thereafter developed a swelling to the thigh area. She is able to ambulate and denies any falls with ambulation. She denies any symptoms on her right leg and denies sustaining any trauma to the right leg. She denied any melena, hematochezia, hematemesis. Denied any chest pain, shortness of breath, fever, chills. She initially seen in [facility] one week ago and was diagnosed with piriformis syndrome. Her symptoms persisted and thereafter patient came to the hospital for further evaluation. Patient did receive dose of tetanus last month. Patient's labs were notable for white count of 8.5, hemoglobin was 13.2, platelet count was 270 K, sodium was 139, potassium was 4.1, creatinine was 0.7, troponin was negative x1, lactic acid was 1.2 Patient had venous Doppler which showed no evidence of DVT in the right lower extremity. There was evidence of superficial thrombophlebitis in the greater saphenous vein in the left lower extremity. Patient is receiving heparin drip. There is plan for thrombectomy to be done tomorrow PHYSICAL EXAM GENERAL: ALERT, ORIENTED, APPEARS-NO ACUTE DISTRESS EYES: SCLERAE ANICTERIC, PUPILS EQUAL/REACTIVE, EXTRAOCULAR MUSCLES INTCT ENT/NECK: ORAL MUCOSA W/O LESIONS, OROPHARYNX IS CLEAR, NECK SUPPLE W/O MASSES RESPIRATORY: LUNGS CLEAR-AUSC/PERCUS CARDIOVASCULAR: REGULAR RATE; No REGULAR RATE; REGULAR RHYTHM; No REGULAR RHYTHM GASTROINTESTINAL: ABDOMEN IS SOFT; No ABDOMEN IS SOFT, No TENDER, No DISTENDED, No HEPATOSPLENOMEGALY; BOWEL SOUNDS PRESENT; No PALPABLE MASSES HEMATOLOGY/LYMPHATIC: No CERVICAL ADENOPATHY, No SUPRACLAVICULR ADENOPATHY, No AXILLARY ADENOPATHY, No INGUINAL ADENOPATHY MUSCULOSKELETAL: EDEMA (left thigh erythema and edema with possible insect bite ) SKIN/BREASTS: MASSES; No MASSES, No RASH, No HIVES NEUROLOGICAL: GROSSLY INTACT PSYCHOLOGICAL: MINI MENTAL ASSMT INTACT Assessment 1. DVT to the left lower extremity with the patient on heparin drip. There is plan to do thrombectomy to be done in am. 2. Left-sided cellulitis Plan 1. Patient to be continued on heparin drip. 2. IR consulted and there is plan for thrombectomy to be done today. 3. There was hypersegmented neutrophils. This patient to Continue on folic acid 1 mg p.o. daily and vitamin B12 1000 mcg p.o. daily. 4. Continue antibiotic treatment as per primary. 5. After thrombectomy this patient may be need to be on heparin for another day then we could switch her to oral anticoagulation. This patient does not have insurance. But I have samples for Eliquis for maybe 1 month and maybe a case management could help her to get free drug for 1 months. So this patient may be could be discharged in the next 24 to 48 hours on Eliquis 10 mg p.o. twice daily for 1 week then 5 mg p.o. twice daily at least for 3 months after that. Vitals/Labs Vital Signs Date Time Temp Pulse Resp B/P (MAP) Pulse Ox O2 Delivery O2 Flow Rate FiO2 10/31/25 16:35 98.6 10/31/25 16:30 69 12 137/76 96 Room Air 21 10/30/25 22:35 0 Laboratory Tests 10/31/25 03:23 Medications Current Medications Lidocaine 1 patch ONCE STAT TP; Start 10/27/25 at 09:08; Stop 10/27/25 at 09:16; Status DC Ketorolac Tromethamine 30 mg ONCE ONCE IM; Start 10/27/25 at 09:30; Stop 10/27/25 at 09:16; Status DC Ceftriaxone Sodium 2 gm ONCE STAT IVPB Last administered on 10/27/25at 09:52; Start 10/27/25 at 09:15; Stop 10/27/25 at 09:18; Status DC Vancomycin HCl 1 gm ONCE STAT IV Last administered on 10/27/25at 10:53; Start 10/27/25 at 09:15; Stop 10/27/25 at 09:19; Status DC Morphine Sulfate 4 mg ONCE STAT IVP Last administered on 10/27/25at 09:52; Start 10/27/25 at 09:17; Stop 10/27/25 at 09:19; Status DC Ondansetron HCl 4 mg ONCE STAT IVP Last administered on 10/27/25at 09:51; Start 10/27/25 at 09:17; Stop 10/27/25 at 09:19; Status DC Enoxaparin Sodium 80 mg ONCE STAT SQ Last administered on 10/27/25at 11:32; Start 10/27/25 at 10:25; Stop 10/27/25 at 10:29; Status DC Famotidine 20 mg BID IV Last administered on 10/31/25at 09:47; Start 10/27/25 at 21:00; Stop 11/26/25 at 20:59 Acetaminophen 500 mg Q6H PRN PO Last administered on 10/29/25at 17:46; Start 10/27/25 at 11:30; Stop 11/26/25 at 11:29 Potassium Chloride 100 ml @ 100 mls/hr AD PRN IV; Start 10/27/25 at 11:30; Stop 11/26/25 at 11:29 Potassium Chloride 20 meq AD PRN PO; Start 10/27/25 at 11:30; Stop 11/26/25 at 11:29 Potassium Chloride 20 meq AD PRN PO; Start 10/27/25 at 11:30; Stop 11/26/25 at 11:29 Magnesium Sulfate 50 ml @ 0 mls/hr PROTOCOL PRN IV; Start 10/27/25 at 11:30; Stop 11/26/25 at 11:29 Ceftriaxone Sodium 2 gm Q24H IVPB Last administered on 10/31/25at 09:47; Start 10/28/25 at 09:00; Stop 11/07/25 at 08:59 Enoxaparin Sodium 80 mg Q12H SQ Last administered on 10/27/25at 23:38; Start 10/27/25 at 23:30; Stop 10/28/25 at 12:41; Status DC Morphine Sulfate 2 mg Q6H PRN IVP Last administered on 10/31/25at 16:44; Start 10/27/25 at 14:00; Stop 11/03/25 at 13:59 Heparin Sodium (Porcine) *calculation based on ACTUAL B... AD PRN IV; Start 10/28/25 at 13:30; Stop 11/27/25 at 13:29 Heparin Sodium/ Dextrose 250 ml @ 0 mls/hr Q6H IV Last administered on 10/31/25at 05:52; Start 10/28/25 at 13:30; Stop 11/27/25 at 13:29 Lidocaine HCl 50 ml STK-MED ONCE .ROUTE; Start 10/28/25 at 13:56; Stop 10/28/25 at 13:56; Status DC Iodixanol 100 ml STK-MED ONCE .ROUTE; Start 10/28/25 at 13:56; Stop 10/28/25 at 13:56; Status DC Heparin Sodium/ Sodium Chloride 0 ml @ As Directed STK-MED ONCE IV; Start 10/28/25 at 13:56; Stop 10/28/25 at 13:56; Status DC Neomycin/ Polymyxin/ Bacitracin 1 appl DAILY TP Last administered on 10/31/25at 09:48; Start 10/28/25 at 17:00; Stop 11/27/25 at 16:59 Iohexol 75 ml STK-MED ONCE IV; Start 10/28/25 at 18:24; Stop 10/28/25 at 18:25; Status DC Lidocaine HCl 50 ml STK-MED ONCE .ROUTE; Start 10/31/25 at 13:38; Stop 10/31/25 at 13:38; Status DC Iodixanol 100 ml STK-MED ONCE .ROUTE; Start 10/31/25 at 13:38; Stop 10/31/25 at 13:38; Status DC Heparin Sodium/ Sodium Chloride 500 ml @ As Directed STK-MED ONCE IV; Start 10/31/25 at 13:38; Stop 10/31/25 at 13:38; Status DC Fentanyl Citrate 100 mcg STK-MED ONCE .ROUTE; Start 10/31/25 at 13:43; Stop 10/31/25 at 13:43; Status DC Midazolam HCl 2 mg STK-MED ONCE .ROUTE; Start 10/31/25 at 13:43; Stop 10/31/25 at 13:43; Status DC Heparin Sodium (Porcine) 10,000 unit STK-MED ONCE .ROUTE; Start 10/31/25 at 13:44; Stop 10/31/25 at 13:44; Status DC Midazolam HCl 2 mg STK-MED ONCE .ROUTE; Start 10/31/25 at 13:56; Stop 10/31/25 at 13:56; Status DC Fentanyl Citrate 100 mcg STK-MED ONCE .ROUTE; Start 10/31/25 at 14:13; Stop 10/31/25 at 14:13; Status DC Midazolam HCl 2 mg STK-MED ONCE .ROUTE; Start 10/31/25 at 14:14; Stop 10/31/25 at 14:14; Status DC Pharmacy Profile Note 1 each ONCE MISC; Start 10/31/25 at 15:30; Stop 11/07/25 at 15:29; Status PAULINE RAMIREZ MD Oct 31, 2025 18:17
[2025-11-01] VITALS (53 sets, daily range): BP systolic 119–165; BP diastolic 69–98; PULSE 73–101; RESP 10–36; TEMP 98.2–98.9; O2SAT 96–97
[2025-11-01 03:47] LABS: IMMATURE GRANULOCYTE ABSOLUTE 0.03 K/uL (0-1); NUCLEATED RED BLOOD CELLS 0.0 % (0.0-0.19); PLATELET COUNT (AUTO) 94 K/uL (130-400); RED BLOOD CELL COUNT(AUTO) 3.77 MIL/uL (4.00-5.50); RED CELL DISTRIBUTION WIDTH 11.7 % (11.0-15.5); WHITE BLOOD COUNT (AUTO) 10.0 K/uL (4.8-10.8)
[2025-11-01 04:01] LABS: ASPARTATE AMINOTRANSFERASE 56.0 U/L (10-37); CREATINE KINASE, TOTAL 36.0 U/L (21-232); CREATININE 0.7 mg/dL (0.5-1.0); GLOMERULAR FILTR. RATE CALC 114.0 mL/min (>90); GLUCOSE,RANDOM 99.0 mg/dL (70-105); LDL DIRECT 97.0 mg/dL (0-99); SODIUM SERUM 136.0 mmol/L (136-145); TOTAL PROTEIN, SERUM 6.9 g/dL (6.0-8.3); UREA NITROGEN, BLOOD 17.0 mg/dL (7-18)
[2025-11-01 05:45] LABS: INR 1.94 (0.85-1.15)
--- NOTE | 2025-11-01 07:46 | NUR ---
MD NOTIFICATION DR BEARDEN NOTIFIED PLATELET COUNT 94. ALTAPLASE INFUSION RATE TO BE DECREASED 1 MG/HR.
[2025-11-01] MEDS ORDERED: IODIXANOL 320 MG/ML 100 ML VIAL ONE (12:02)
[2025-11-01] MEDS ORDERED: HEParin-NS 1,000 UNIT/500 ML 0 ML IV ONE (12:02)
[2025-11-01] MEDS ORDERED: LIDOCAINE HCL 1% MDV 50ML VIAL ONE (12:02)
--- NOTE | 2025-11-01 12:12 | PN ---
This is a female with no significant past medical history who presented to the hospital secondary to above pain and swelling in the left lower extremity. The patient states around two weeks ago she was spinning in the trauma to the left inner thigh while she was straining a broom. The broom had a metal wire which hit her left thigh. She initially had some ecchymosis on the left thigh and thereafter developed a swelling to the thigh area. She is able to ambulate and denies any falls with ambulation. She denies any symptoms on her right leg and denies sustaining any trauma to the right leg. She denied any melena, hematochezia, hematemesis. Denied any chest pain, shortness of breath, fever, chills. She [place] seen [place] [facility] [place] and was diagnosed with piriformis syndrome. Her symptoms persisted and thereafter patient came to the hospital for further evaluation. Patient did receive dose of tetanus last month. Patient's labs were notable for white count of 8.5, hemoglobin was 13.2, platelet count was 270 K, sodium was 139, potassium was 4.1, creatinine was 0.7, troponin was negative x1, lactic acid was 1.2 Patient had venous Doppler which showed no evidence of DVT in the right lower extremity. There was evidence of superficial thrombophlebitis in the greater saphenous vein in the left lower extremity. 11/01 - patient is status post left lower extremity mechanical thrombectomy with cather directed thrombolysis. Per IR, 16 Fr sheath in left popliteal vein: ongoing tPA infusion. 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 Continue to monitor for signs of bleeding. PHYSICAL EXAM GENERAL: ALERT, ORIENTED, APPEARS-NO ACUTE DISTRESS EYES: SCLERAE ANICTERIC, PUPILS EQUAL/REACTIVE, EXTRAOCULAR MUSCLES INTCT ENT/NECK: ORAL MUCOSA W/O LESIONS, OROPHARYNX IS CLEAR, NECK SUPPLE W/O MASSES RESPIRATORY: LUNGS CLEAR-AUSC/PERCUS CARDIOVASCULAR: REGULAR RATE; No REGULAR RATE; REGULAR RHYTHM; No REGULAR RHYTHM GASTROINTESTINAL: ABDOMEN IS SOFT; No ABDOMEN IS SOFT, No TENDER, No DISTENDED, No HEPATOSPLENOMEGALY; BOWEL SOUNDS PRESENT; No PALPABLE MASSES HEMATOLOGY/LYMPHATIC: No CERVICAL ADENOPATHY, No SUPRACLAVICULR ADENOPATHY, No AXILLARY ADENOPATHY, No INGUINAL ADENOPATHY MUSCULOSKELETAL: EDEMA (left thigh erythema and edema with possible insect bite ) SKIN/BREASTS: MASSES; No MASSES, No RASH, No HIVES NEUROLOGICAL: GROSSLY INTACT PSYCHOLOGICAL: MINI MENTAL ASSMT INTACT Assessment 1. DVT to the left lower extremity status post mechanical thrombectomy. 2. Left-sided cellulitis Plan 1. 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 2. There was hypersegmented neutrophils. This patient to Continue on folic acid 1 mg p.o. daily and vitamin B12 1000 mcg p.o. daily. 3. Continue antibiotic treatment as per primary. 4. After thrombectomy this patient should be on heparin per protocol with no loading dose for today then we could switch her to oral anticoagulation. This patient does not have insurance. But I have samples for Eliquis for maybe 1 month and maybe a case management could help her to get free drug for 1 months. So this patient may be could be discharged in the next 24 to 48 hours on Eliquis 10 mg p.o. twice daily for 1 week then 5 mg p.o. twice daily at least for 3 months after that. Vitals/Labs Vital Signs Date Time Temp Pulse Resp B/P (MAP) Pulse Ox O2 Delivery O2 Flow Rate FiO2 11/01/25 11:45 80 27 152/77 97 Room Air 11/01/25 11:37 98.4 11/01/25 08:00 0 21 Laboratory Tests 11/01/25 03:30 Medications Current Medications Lidocaine 1 patch ONCE STAT TP; Start 10/27/25 at 09:08; Stop 10/27/25 at 09:16; Status DC Ketorolac Tromethamine 30 mg ONCE ONCE IM; Start 10/27/25 at 09:30; Stop 10/27/25 at 09:16; Status DC Ceftriaxone Sodium 2 gm ONCE STAT IVPB Last administered on 10/27/25at 09:52; Start 10/27/25 at 09:15; Stop 10/27/25 at 09:18; Status DC Vancomycin HCl 1 gm ONCE STAT IV Last administered on 10/27/25at 10:53; Start 10/27/25 at 09:15; Stop 10/27/25 at 09:19; Status DC Morphine Sulfate 4 mg ONCE STAT IVP Last administered on 10/27/25at 09:52; Start 10/27/25 at 09:17; Stop 10/27/25 at 09:19; Status DC Ondansetron HCl 4 mg ONCE STAT IVP Last administered on 10/27/25at 09:51; Start 10/27/25 at 09:17; Stop 10/27/25 at 09:19; Status DC Enoxaparin Sodium 80 mg ONCE STAT SQ Last administered on 10/27/25at 11:32; Start 10/27/25 at 10:25; Stop 10/27/25 at 10:29; Status DC Famotidine 20 mg BID IV Last administered on 11/01/25at 09:48; Start 10/27/25 at 21:00; Stop 11/26/25 at 20:59 Acetaminophen 500 mg Q6H PRN PO Last administered on 10/29/25at 17:46; Start 10/27/25 at 11:30; Stop 11/26/25 at 11:29 Potassium Chloride 100 ml @ 100 mls/hr AD PRN IV; Start 10/27/25 at 11:30; Stop 11/26/25 at 11:29 Potassium Chloride 20 meq AD PRN PO; Start 10/27/25 at 11:30; Stop 11/26/25 at 11:29 Potassium Chloride 20 meq AD PRN PO; Start 10/27/25 at 11:30; Stop 11/26/25 at 11:29 Magnesium Sulfate 50 ml @ 0 mls/hr PROTOCOL PRN IV; Start 10/27/25 at 11:30; Stop 11/26/25 at 11:29 Ceftriaxone Sodium 2 gm Q24H IVPB Last administered on 11/01/25at 09:48; Start 10/28/25 at 09:00; Stop 11/07/25 at 08:59 Enoxaparin Sodium 80 mg Q12H SQ Last administered on 10/27/25at 23:38; Start 10/27/25 at 23:30; Stop 10/28/25 at 12:41; Status DC Morphine Sulfate 2 mg Q6H PRN IVP Last administered on 11/01/25at 06:01; Start 10/27/25 at 14:00; Stop 11/03/25 at 13:59 Heparin Sodium (Porcine) *calculation based on ACTUAL B... AD PRN IV; Start 10/28/25 at 13:30; Stop 10/31/25 at 18:17; Status DC Heparin Sodium/ Dextrose 250 ml @ 0 mls/hr Q6H IV Last administered on 10/31/25at 05:52; Start 10/28/25 at 13:30; Stop 10/31/25 at 18:16; Status DC Lidocaine HCl 50 ml STK-MED ONCE .ROUTE; Start 10/28/25 at 13:56; Stop 10/28/25 at 13:56; Status DC Iodixanol 100 ml STK-MED ONCE .ROUTE; Start 10/28/25 at 13:56; Stop 10/28/25 at 13:56; Status DC Heparin Sodium/ Sodium Chloride 0 ml @ As Directed STK-MED ONCE IV; Start 10/28/25 at 13:56; Stop 10/28/25 at 13:56; Status DC Neomycin/ Polymyxin/ Bacitracin 1 appl DAILY TP Last administered on 11/01/25at 09:48; Start 10/28/25 at 17:00; Stop 11/27/25 at 16:59 Iohexol 75 ml STK-MED ONCE IV; Start 10/28/25 at 18:24; Stop 10/28/25 at 18:25; Status DC Lidocaine HCl 50 ml STK-MED ONCE .ROUTE; Start 10/31/25 at 13:38; Stop 10/31/25 at 13:38; Status DC Iodixanol 100 ml STK-MED ONCE .ROUTE; Start 10/31/25 at 13:38; Stop 10/31/25 at 13:38; Status DC Heparin Sodium/ Sodium Chloride 500 ml @ As Directed STK-MED ONCE IV; Start 10/31/25 at 13:38; Stop 10/31/25 at 13:38; Status DC Fentanyl Citrate 100 mcg STK-MED ONCE .ROUTE; Start 10/31/25 at 13:43; Stop 10/31/25 at 13:43; Status DC Midazolam HCl 2 mg STK-MED ONCE .ROUTE; Start 10/31/25 at 13:43; Stop 10/31/25 at 13:43; Status DC Heparin Sodium (Porcine) 10,000 unit STK-MED ONCE .ROUTE; Start 10/31/25 at 13:44; Stop 10/31/25 at 13:44; Status DC Midazolam HCl 2 mg STK-MED ONCE .ROUTE; Start 10/31/25 at 13:56; Stop 10/31/25 at 13:56; Status DC Fentanyl Citrate 100 mcg STK-MED ONCE .ROUTE; Start 10/31/25 at 14:13; Stop 10/31/25 at 14:13; Status DC Midazolam HCl 2 mg STK-MED ONCE .ROUTE; Start 10/31/25 at 14:14; Stop 10/31/25 at 14:14; Status DC Pharmacy Profile Note 1 each ONCE MISC; Start 10/31/25 at 15:30; Stop 10/31/25 at 19:09; Status DC Alteplase, Recombinant 24 mg/ Sodium Chloride 250 ml @ 20.833 mls/ hr ONCE ONCE IV Last administered on 10/31/25at 20:08; Start 10/31/25 at 20:00; Stop 11/01/25 at 06:16; Status DC Alteplase, Recombinant 4 mg/ Sodium Chloride 250 ml @ 20.833 mls/ hr ONCE ONCE IV; Start 11/01/25 at 06:30; Stop 11/01/25 at 06:19; Status DC Alteplase, Recombinant 4 mg/ Sodium Chloride 100 ml @ 50 mls/hr ONCE ONCE IV Last administered on 11/01/25at 06:33; Start 11/01/25 at 06:30; Stop 11/01/25 at 08:29; Status DC Alteplase, Recombinant 4 mg/ Sodium Chloride 100 ml @ 25 mls/hr ONCE ONCE IV Last administered on 11/01/25at 09:35; Start 11/01/25 at 09:30; Stop 11/01/25 at 13:29 MASON HERNÁNDEZ Nov 01, 2025 12:12
--- NOTE | 2025-11-01 12:15 | NUR ---
STATUS PT TAKEN TO STRATEGIC ANALYST VIA BED FOR LEFT LEG VENOGRAM. ALTAPLASE INFUSING @ 1MG/HR.
--- NOTE | 2025-11-01 13:03 | PN ---
[facility] PROGRESS NOTE Date of Service: Nov 01, 2025 Time of Service: 13:03 SUBJECTIVE: HISTORY OF PRESENT ILLNESS: This is a female with no significant past medical history who presented to the hospital secondary to above pain and swelling in the left lower extremity. The patient states around two weeks ago she was spinning in the trauma to the left inner thigh while she was straining a broom. The broom had a metal wire which hit her left thigh. She initially had some ecchymosis on the left thigh and thereafter developed a swelling to the thigh area. She is able to ambulate and denies any falls with ambulation. She denies any symptoms on her right leg and denies sustaining any trauma to the right leg. She denied any melena, hematoc hezia, hematemesis. Denied any chest pain, shortness of breath, fever, chills. She initially seen in [facility] [place] [facility] one week ago and was diagnosed with piriformis syndrome. Her symptoms persisted and thereafter patient came to the hospital for further evaluation. Patient did receive dose of tetanus last month. Patient's labs were notable for white count of 8.5, hemoglobin was 13.2, maryanne telet count was 270 K, sodium was 139, potassium was 4.1, creatinine was 0.7, troponin was negative x1, lactic acid was 1.2 Patient had venous Doppler which showed no evidence of DVT in the right lower extremity. There was evidence of superficial thrombophlebitis in the greater saphenous vein in the left lower extremity. Patient received Lovenox 80 mg of the ER. Patient was admitted for further medical management. 10/28/2025: Patient was seen and evaluated this morning, no family at bedside. Patient is awake, alert, oriented x3, saturating 99% with room air. Patient complains of pain and swelling of left lower extremity. Repeat ultrasound venous Doppler of left lower extremity performed on 10/28/2025 showed acute deep venous thrombosis of common femoral vein, superficial femoral vein, popliteal vein, posterior tibial vein, deep femoral vein, and great saphenous vein. Patient was started on heparin drip, IR consultation was made for possible thrombolysis due to extensive DVT. Blood culture showed no growth after 24 hours. Continue Rocephin, Pepcid. 10/29/2025: Patient is seen and evaluated in room 407. Patient reports no concerns or complaints. She states she cannot move much because of her leg. She understands that she has a clot in her veins, which will be removed on Friday. She is currently on a heparin drip to prevent further clotting. After the p rocedure, she will transition to oral or injectable anticoagulation. Patient had Xulane ( 150/35) implant for contraception, which could probably be the reason for hypercoagulable state, for now we are not removing the implant as patient may bleed heavily once removed as patient is currently on heparin drip. Labs are overall within normal limits; platelet count is 260, and current APTT is 36.8, likely affected by the heparin drip. 10/30/2025: Patient evaluated this morning and found resting comfortably. Vital signs stable, though blood pressure is mildly elevated at 141/72. Left lower extremity continues to show erythema, warmth, and swelling, consistent with ongoing cellulitis and known DVT. The patient denies pain or new symptoms. She remains on a heparin drip for anticoagulation management to of her documented DVT and continues on ceftriaxone for cellulitis treatment. Blood culture remain negative with no growth to date. Laboratory results from today show: WBC 8.2, hemoglobin 11.4, platelets 248, sodium within normal limits. Tomorrow, interventional radiology is scheduled to perform catheter directed thrombolysis for her DVT. In preparation, the patient will be placed NPO tonight. 10/31/2025: Patient evaluated this morning and found resting comfortably. Vital signs stable. Her CRP levels have improved to 11.6 from 12.3 yesterday. Left lower extremity continues to show erythema, warmth, and swelling, consistent with ongoing cellulitis and known DVT. The patient denies pain or new symptoms. She remains on a heparin drip for anticoagulation management to of her documented DVT and continues on ceftriaxone for cellulitis treatment. Blood culture remain negative with no growth to date. Today she underwent thrombolysis for her DVT by interventional radiology. Per the radiologist she underwent " Mechanical lysis using an Inari device, but 10 passes made with large amount of clot removed. Some of the clots appear to be organized suggesting of acute and chronic clots. A 16-Lao sheath was then left in the left popliteal vein and the tPA will be infused through this. The patient is to return in 24 hours. 11/01/2025: Patient evaluated this morning with family present. She underwent thrombectomy yesterday. She is recovering well after the procedure, complains of little pain, leg in a brace currently and scheduled for a venogram this afternoon. Patient's tPA has been discontinued. Dr. Avila started the patient on IV heparin today and will be started on oral heparin from tomorrow and continue it for 3 months. REVIEW OF SYSTEMS CONSTITUTIONAL: Denies fevers, chills, or night sweats. No unintentional weight loss reported. NEUROLOGICAL: Denies headache, motor weakness, sensory deficit, vertigo/spinning sensation, gait abnormalities, or tremors. ENT: No hearing loss, rhinitis, rhinorrhea, hoarseness, or sore throat. CARDIOVASCULAR: Denies any exertional angina, dyspnea on exertion, orthopnea, paroxysmal nocturnal dyspnea, palpitations PULMONARY: Denies any shortness of breath, cough, phlegm/sputum, hemoptysis, pleuritic chest pain. GASTROINTESTINAL: Denies any type of dysphagia to either liquids or solids. Denies nausea, vomiting, abdominal pain, diarrhea, constipation, or changes in stool consistency or caliber. GENITOURINARY: Denies frequency, urgency, nocturia, hematuria or incontinence. ENDOCRINOLOGIC: Denies polyuria, polydipsia, polyphagia or heat/cold intolerances. DERMATOLOGIC: Denies rashes or pruritus. Musculoskeletal: Pain and swelling in the left lower extremity PHYSICAL EXAM GENERAL APPEARANCE: The patient is awake, alert, and oriented, in no acute cardiopulmonary distress. NEUROLOGICAL: Cranial nerves II-XII grossly intact. Motor is 5/5 in bilateral upper and lower extremities proximal to distal. No sensory deficits. HEENT: Face is symmetric. Pupils are equal and reactive. Extraocular movements are intact. NECK: Supple. No JVD. No thyromegaly. No submental, submandibular, pre- /postauricular, occipital or supraclavicular lymphadenopathy. CHEST: Normal chest expansion. No Telemetry. LUNGS: Absence of any rales, rhonchi or any wheezing. CARDIOVASCULAR: Regular. S1 and S2 normal. No appreciable rubs, murmurs or gallops. ABDOMEN: Soft, nontender, and nondistended. There is no rebound, voluntary guarding, or rigidity. : Deferred. No [place]. EXTREMITIES: There is a small open wound in the left inner thigh. There is some induration around the inner thigh area. The left leg is also in a brace post procedure. Right leg looks okay SKIN: No skin breakdown. Vital Signs (last 8hr) Date Time Temp Pulse Resp B/P (MAP) Pulse Ox O2 Delivery O2 Flow Rate FiO2 11/01/25 12:00 97 Room Air* 0 21 11/01/25 12:00 78 27 146/83 97 Room Air 11/01/25 11:45 80 27 152/77 97 Room Air 11/01/25 11:37 98.4 11/01/25 11:30 95 14 153/90 99 Room Air 11/01/25 11:15 82 25 135/82 97 Room Air 11/01/25 11:00 81 26 136/72 97 Room Air 11/01/25 10:45 80 25 134/82 96 Room Air 11/01/25 10:30 86 24 132/84 96 Room Air 11/01/25 10:15 81 25 130/75 95 Room Air 11/01/25 10:00 78 24 125/76 96 Room Air 11/01/25 09:45 84 30 132/69 96 Room Air 11/01/25 09:30 90 14 148/91 97 Room Air 11/01/25 09:15 85 26 134/81 96 Room Air 11/01/25 09:00 91 19 147/91 98 Room Air 11/01/25 08:45 81 23 125/81 97 Room Air 11/01/25 08:30 85 16 136/86 97 Room Air 11/01/25 08:15 94 20 141/81 96 Room Air 11/01/25 08:03 98.2 11/01/25 08:00 90 23 148/78 97 Room Air 11/01/25 08:00 97 Room Air* 0 21 11/01/25 07:45 93 24 134/75 97 Room Air 11/01/25 07:30 81 21 121/76 97 Room Air 11/01/25 07:15 86 22 128/72 96 Room Air 11/01/25 07:00 82 15 136/77 97 Room Air LABS: Laboratory: Test 11/01/25 05:13 11/01/25 03:30 10/31/25 16:23 10/31/25 03:23 Range/Units Prothrombin Time 19.3 #H 9.6-11.6 SEC Prothromb Time International Ratio 1.94 H 0.85-1.15 White Blood Count 10.0 4.8-10.8 K/uL Red Blood Count 3.77 L 4.00-5.50 MIL/uL Hemoglobin 11.1 L 12.0-16.0 g/dL Hematocrit 33.2 L 36-48 % Mean Corpuscular Volume 88.1 79-99 fL Mean Corpuscular Hemoglobin 29.4 27.0-33.0 pg Mean Corpuscular Hemoglobin Concent 33.4 32.0-36.0 g/dL Red Cell Distribution Width 11.7 11.0-15.5 % Platelet Count 94 #L 130-400 K/uL Mean Platelet Volume 8.9 7.5-10.5 fL Immature Granulocyte % (Auto) 0.3 0-1 % Neutrophils (%) (Auto) 76.8 40.0-77.0 % Lymphocytes (%) (Auto) 17.0 L 21.0-51.0 % Monocytes (%) (Auto) 5.1 3.0-13.0 % Eosinophils (%) (Auto) 0.2 0.0-8.0 % Basophils (%) (Auto) 0.6 0.0-5.0 % Neutrophils # (Auto) 7.7 1.8-7.7 K/uL Lymphocytes # (Auto) 1.7 1.0-4.8 K/uL Monocytes # (Auto) 0.5 0.1-1.0 K/uL Eosinophils # (Auto) 0.02 0.00-0.70 K/uL Basophils # (Auto) 0.06 0.00-0.20 K/uL Absolute Immature Granulocyte (auto 0.03 0-1 K/uL Nucleated Red Blood Cells 0.0 0.0-0.19 % Sodium Level 136 136-145 mmol/L Potassium Level 4.1 3.5-5.1 mmol/L Chloride Level 102 101-111 mmol/L Carbon Dioxide Level 24 21-32 mmol/L Blood Urea Nitrogen 17 7-18 mg/dL Creatinine 0.7 0.5-1.0 mg/dL Glomerular Filtration Rate Calc 114 >90 mL/min Random Glucose 99 70-105 mg/dL Total Calcium 8.3 L 8.5-10.1 mg/dL Total Bilirubin 0.5 0.2-1.0 mg/dL Aspartate Amino Transf (AST/SGOT) 56 H 10-37 U/L Alanine Aminotransferase (ALT/SGPT) 46 12-78 U/L Alkaline Phosphatase 73 50-136 U/L Total Creatine Kinase 36 # 21-232 U/L Troponin I High Sensitivity 166.8 *H 4-50 ng/L C-Reactive Protein, Quantitative 28.60 H 0.5-3.0 mg/L Total Protein 6.9 6.0-8.3 g/dL Albumin 3.0 L 3.5-5.0 g/dL Triglycerides Level 117 30-200 mg/dL Cholesterol Level 207 H <200 mg/dL LDL Cholesterol 97 0-99 mg/dL HDL Cholesterol 80 35-85 mg/dL Activated Partial Thromboplast Time 30.6 26.3-35.5 SEC Fibrinogen 260 180-350 mg/dL Procalcitonin < 0.05 L 0.05-0.5 ng/mL Current Medications Medications (Trade) Dose Ordered Sig/Tess Route PRN Reason Start Time Stop Time Status Last Admin Dose Admin Acetaminophen (TYLenol 500MG TAB) 500 mg Q6H PRN PO MILD PAIN (1-3) 10/27/25 11:30 11/26/25 11:29 10/29/25 17:46 500 MG Ceftriaxone Sodium (Rocephin 2gm Inj) 2 gm ONCE STAT IVPB 10/27/25 09:15 10/27/25 09:18 DC 10/27/25 09:52 2 GM Ceftriaxone Sodium (Rocephin 2gm Inj) 2 gm Q24H IVPB 10/28/25 09:00 11/07/25 08:59 11/01/25 09:48 2 GM Enoxaparin Sodium (Lovenox 80mg) 80 mg ONCE STAT SQ 10/27/25 10:25 10/27/25 10:29 DC 10/27/25 11:32 80 MG Enoxaparin Sodium (Lovenox 80mg) 80 mg Q12H SQ 10/27/25 23:30 10/28/25 12:41 DC 10/27/25 23:38 80 MG Famotidine (Pepcid 20mg Vial) 20 mg BID IV 10/27/25 21:00 11/26/25 20:59 11/01/25 09:48 20 MG Heparin Sodium (Porcine) (HEParin 5,000 UNIT VIAL) *calculation based on ACTUAL B... AD PRN IV HEPARIN PROTOCOL 10/28/25 13:30 10/31/25 18:17 DC Heparin Sodium/ Dextrose 250 ml @ 0 mls/hr Q6H IV 10/28/25 13:30 10/31/25 18:16 DC 10/31/25 05:52 14.98 MLS/HR Lidocaine (Lidoderm Patch 5%) 1 patch ONCE STAT TP 10/27/25 09:08 10/27/25 09:16 DC Magnesium Sulfate 50 ml @ 0 mls/hr PROTOCOL PRN IV hypomagnesemia 10/27/25 11:30 11/26/25 11:29 Morphine Sulfate (morPHINE 2MG SYG) 2 mg Q6H PRN IVP SEVERE PAIN (7-10) 10/27/25 14:00 11/03/25 13:59 11/01/25 06:01 2 MG Morphine Sulfate (morPHINE 4MG SYG) 4 mg ONCE STAT IVP 10/27/25 09:17 10/27/25 09:19 DC 10/27/25 09:52 4 MG Neomycin/ Polymyxin/ Bacitracin (Triple Antibiotic Ointment) 1 appl DAILY TP 10/28/25 17:00 11/27/25 16:59 11/01/25 09:48 1 APPL Ondansetron HCl (zoFRAN 4MG INJ) 4 mg ONCE STAT IVP 10/27/25 09:17 10/27/25 09:19 DC 10/27/25 09:51 4 MG Pharmacy Profile Note (Pharmacy Communication) 1 each ONCE MISC 10/31/25 15:30 10/31/25 19:09 DC Potassium Chloride 100 ml @ 100 mls/hr AD PRN IV POTASSIUM PROTOCOL 10/27/25 11:30 11/26/25 11:29 Potassium Chloride (K-Dur/Klor-Con 20meq) 20 meq AD PRN PO POTASSIUM PROTOCOL 10/27/25 11:30 11/26/25 11:29 Potassium Chloride (KCl 10% Elixir 20meq/15ml) 20 meq AD PRN PO POTASSIUM PROTOCOL 10/27/25 11:30 11/26/25 11:29 Vancomycin HCl (Vancomycin 1g/ 250ml Kit) 1 gm ONCE STAT IV 10/27/25 09:15 10/27/25 09:19 DC 10/27/25 10:53 1 GM DIAGNOSTICS / RADIOLOGY: [ ] ASSESSMENT: Acute deep venous thrombosis of left lower extremity venous system POA Left symptomatic superficial thrombophlebitis of the greater saphenous vein secondary to trauma POA Small open wound in left inner thigh secondary to trauma Possible cellulitis in the left inner thigh PLAN: Acute deep venous thrombosis of left lower extremity venous system POA Ultrasound of left lower extremity showed acute DVT of common femoral vein, s uperficial femoral vein, popliteal vein, posterior tibial vein, deep femoral vein, and great saphenous vein. On presentation PT 10.6, INR 1, APTT 25 Underwent Percutaneous ultrasound and fluoroscopy guided thrombectomy of left popliteal vein, left superficial femoral vein, left common femoral vein extending to left external iliac vein. Today will undergo a venogram of the left leg, tPA discontinued, heparin IV from tonight and continued with oral heparin from tomorrow Monitor APTT per protocol. Possible cellulitis in the left inner thigh Patient had injury to left inner thigh 2 weeks back, pain and swelling progressed despite anti-inflammatory medication White count on presentation 8.5, lactic acid 1.2, CRP 12.30, today white count at 9.3, and CRP at 11.60 Continue Patient on Rocephin 2 g Q 24 H IV WBC today is 9.3 GI prophylaxis with Pepcid ATTESTATION BY PHYSICIAN I have seen and examined the patient. I reviewed the documentation, medical dec ision making, and treatment plan as noted by the resident physician above. I agree with the findings and plan of care. LEVY RODRIGUEZ MD, ABHINAV MD Nov 01, 2025 13:03
--- NOTE | 2025-11-01 13:39 | NUR ---
[facility] Follow-up: Patient re-assessed by wound healing team. See wound assessment. Assessment and recommendations provided to primary nurse. Education provided. Wound resolved
[2025-11-01 15:10] LABS: INR 1.37 (0.85-1.15)
--- NOTE | 2025-11-01 15:40 | NUR ---
REPORT RECEIVED FROM JANA RN. PATIENT TRANSFERRED FROM 2ND FLOOR NO SIGNS OF DISTRESS NOTED. PATIENT LEFT LOWER EXTREMITY SWOLLEN BUT PEDAL AND DORSALIS PULSES FELT. PATIENT IS NOT IN ANY PAIN AT THIS TIME. PATIENT ORIENTED TO ROOM. FAMILY MEMBER AT BEDSIDE. BED LOW AND LOCKED WITH CALL LIGHT IN REACH.
--- NOTE | 2025-11-01 15:46 | CCATH ---
STUDY: Left leg venogram. The patient is status post 21 hours of TPA infusion check. HISTORY: This is a 35-year-old female with left leg deep vein thrombosis. The patient underwent mechanical thrombectomy using an RE device. There is some residual clot seen, therefore TPA was infused for 21 hours. The patient is here for a check. Through the 16-Martiniqu[place] sheath, contrast was injected. The study demonstrates the left superficial femoral vein, the common femoral vein, the external iliac vein, and common iliac vein appears to be patent with no evidence of any deep vein thrombosis. Using a pursestring suture, the 16-Martiniquais sheath was removed with a 3-0 silk. I would recommend TPA be discontinued and the patient be on oral anticoagulation for 1 year. TID: [id number] RECEIPT: [id number]
--- NOTE | 2025-11-01 16:05 | NUR ---
HEPARIN DRIP TO BE INITIATED FOR THE PATIENT. CRITICAL LAB VALUE RECEIVED FROM LAB. CALLED DR. LEAL FOR RECOMMENDATION IN STARTING DRIP DUE TO CRITICAL LAB. LEFT MESSAGE WITH ANSWERING SERVICE. PENDING PHYSICIAN CALL BACK.
--- NOTE | 2025-11-01 20:10 | NUR ---
SPOKE WITH DR BEARDEN. PER MD WE WILL CANCEL HEPARIN DRIP AND START ELIQUIS PO FOR THIS PATIENT. SALESPERSON NECKTIES NURSE AWARE.
--- NOTE | 2025-11-01 21:58 | CONS ---
[facility] CONSULTATION NOTE Date Patient Seen: Nov 01, 2025 Time of Visit: 21:56 Supervising Physician: Dr. Layne Reason for Consultation: CC management PROBLEM LIST: Acute deep venous thrombosis of left lower extremity venous system POA -s/p thrombectomy of left popliteal vein, left superficial femoral vein, left common femoral vein Left symptomatic superficial thrombophlebitis of the greater saphenous vein secondary to trauma POA Small open wound in left inner thigh secondary to trauma Possible cellulitis in the left inner thigh HPI: Patient is a year old female with no significant past medical history who was admitted for significant swelling and tenderness to the thigh area following a trauma incident involving a household room. Patient was found to have significant DVT with evidence of superficial thrombophlebitis in the greater saphenous vein. Patient was initiated on heparin drip and was taken for thrombectomy with IR following venogram. Patient returned to Interventional Radiology 24 hours later for repeat venogram showing resolution of the remaining clots secondary to tPA administration. Patient continues on Rocephin at this time for suspected cellulitis of the inner thigh. Heparin drip has been discontinued at this time and hematology recommends Eliquis 10 b.i.d. he initiated for seven days followed by a minimum of three months and 5 mg b.i.d.. Patient remains on room air at this time, her blood pressure has been stable, heart rate within normal limits, respirations are even and unlabored. Her white count is 10 today, hemoglobin 11.1, renal function stable with a creatinine of 0.7. Of note troponins have increased from 21-166 following the procedure, these will monitored closely. Patient this time has been cleared for downgrade for continued observation and PCCU. Plan Downgrade to PCCU Continue to monitor vitals Trend troponin Continue Rocephin Eliquis 10 b.i.d. to complete seven days followed by a minimum of three months of 5 mg b.i.d. Disposition per primary PAST MEDICAL HX: see above PAST SURGICAL HX: noncontributory SOCIAL HISTORY: No tobacco, ETOH, or illicit drug use Coded Allergies: No Known Drug Allergies (Unverified Allergy, Unknown, 12/23/24) REVIEW OF SYSTEMS: 12 point ROS reviewed with patient. Pertinent positives mentioned above. Otherwise negative. PHYSICAL EXAM: GENERAL: alert, weak, awake oriented x 3 HEENT: EOMI, Sclera non icteric, moist mucosa NECK: Supple, no JVD, trachea midline LUNGS: Clear breath sounds bilaterally. No wheezes HEART: Regular rate and rhythm. Normal S1 and S2, without murmurs ABD: Abdomen soft, nontender. Bowel sounds present EXT: No clubbing cyanosis or edema NEURO: Alert and oriented to person, follows commands Vital Signs (last 8hr) Date Time Temp Pulse Resp B/P (MAP) Pulse Ox O2 Delivery O2 Flow Rate FiO2 11/01/25 20:00 98.2 101 18 133/77 99 Room Air 11/01/25 15:40 99.0 97 20 123/88 100 Room Air 21 11/01/25 15:30 98 18 128/76 97 Room Air 11/01/25 15:15 95 13 129/80 97 Room Air 11/01/25 15:00 95 36 119/69 96 Room Air 11/01/25 14:45 95 32 128/74 97 Room Air 11/01/25 14:30 101 12 143/93 97 Room Air 11/01/25 14:15 90 21 135/78 97 Room Air 11/01/25 14:00 98 15 136/88 98 Room Air LABS: Hematology Labs: Test 11/01/25 03:30 Range/Units White Blood Count 10.0 4.8-10.8 K/uL Red Blood Count 3.77 L 4.00-5.50 MIL/uL Hemoglobin 11.1 L 12.0-16.0 g/dL Hematocrit 33.2 L 36-48 % Mean Corpuscular Volume 88.1 79-99 fL Mean Corpuscular Hemoglobin 29.4 27.0-33.0 pg Mean Corpuscular Hemoglobin Concent 33.4 32.0-36.0 g/dL Red Cell Distribution Width 11.7 11.0-15.5 % Platelet Count 94 #L 130-400 K/uL Mean Platelet Volume 8.9 7.5-10.5 fL Immature Granulocyte % (Auto) 0.3 0-1 % Neutrophils (%) (Auto) 76.8 40.0-77.0 % Lymphocytes (%) (Auto) 17.0 L 21.0-51.0 % Monocytes (%) (Auto) 5.1 3.0-13.0 % Eosinophils (%) (Auto) 0.2 0.0-8.0 % Basophils (%) (Auto) 0.6 0.0-5.0 % Neutrophils # (Auto) 7.7 1.8-7.7 K/uL Lymphocytes # (Auto) 1.7 1.0-4.8 K/uL Monocytes # (Auto) 0.5 0.1-1.0 K/uL Eosinophils # (Auto) 0.02 0.00-0.70 K/uL Basophils # (Auto) 0.06 0.00-0.20 K/uL Absolute Immature Granulocyte (auto 0.03 0-1 K/uL Nucleated Red Blood Cells 0.0 0.0-0.19 % Chemistry Labs: Test 11/01/25 03:30 10/31/25 03:23 Range/Units Sodium Level 136 136-145 mmol/L Potassium Level 4.1 3.5-5.1 mmol/L Chloride Level 102 101-111 mmol/L Carbon Dioxide Level 24 21-32 mmol/L Blood Urea Nitrogen 17 7-18 mg/dL Creatinine 0.7 0.5-1.0 mg/dL Glomerular Filtration Rate Calc 114 >90 mL/min Random Glucose 99 70-105 mg/dL Total Calcium 8.3 L 8.5-10.1 mg/dL Total Bilirubin 0.5 0.2-1.0 mg/dL Aspartate Amino Transf (AST/SGOT) 56 H 10-37 U/L Alanine Aminotransferase (ALT/SGPT) 46 12-78 U/L Alkaline Phosphatase 73 50-136 U/L Total Creatine Kinase 36 # 21-232 U/L Troponin I High Sensitivity 166.8 *H 4-50 ng/L C-Reactive Protein, Quantitative 28.60 H 0.5-3.0 mg/L Total Protein 6.9 6.0-8.3 g/dL Albumin 3.0 L 3.5-5.0 g/dL Triglycerides Level 117 30-200 mg/dL Cholesterol Level 207 H <200 mg/dL LDL Cholesterol 97 0-99 mg/dL HDL Cholesterol 80 35-85 mg/dL Procalcitonin < 0.05 L 0.05-0.5 ng/mL Coagulation Labs: Test 11/01/25 14:32 Range/Units Prothrombin Time 14.1 #H 9.6-11.6 SEC Prothromb Time International Ratio 1.37 H 0.85-1.15 Activated Partial Thromboplast Time 30.4 26.3-35.5 SEC Fibrinogen 74 *L 180-350 mg/dL DIAGNOSTICS / RADIOLOGY RESULTS: [ ] PLAN NEURO: Minimize central acting medications as possible. Fall Precautions. Well lighted room through the day and minimize interruptions through the night to prevent acute delirium. PULMONARY: Supplemental 02 as needed Titrate Fio2 to keep Spo2 > or = 90% DuoNebs and CPT as needed IS hourly while awake for pulmonary hygiene Out of bed to chair as tolerated VAP Bundle Vent/BIPAP Settings: [ ] Driving pressure: [ ] P Plat: [ ] Static C: [ ] Static R: [ ] P/F Ratio: [ ] CARDIOVASCULAR: Follow hemodynamics. Titrate vasopressor to keep MAP >65 or systolic blood pressure >95mmHg DIPS: [ ] LINES: [ ] GI & NUTRITION: Continue nutritional support Aspirations precautions Prokinetic agents and laxatives as needed KIDNEYS & ELECTROLYTES: Strict monitoring of intake and output Daily weights Avoid nephrotoxic agents Monitor electrolytes and replace as needed Goal urine output of 30mL/hr or 0.5mL/kg/hr Urine output: [ ] Fluid Balance: [ ] ENDOCRINE: Maintain blood glucose between 100-180 at all times. Insulin sliding scale for blood glucose management INFECTIOUS DISEASE: Trend temperature. Muniz-culture if febrile. Micro: [ ] Antibiotics: [ ] HEMATOLOGY & COAGULATION: Monitor H&H. Keep Hgb > 7 Transfuse 1 unit of PRBC for Hgb < 7 Transfuse 1 pack of platelets of platelets < 20, 000 Watch for any signs and symptoms of bleeding SKIN: Pressure ulcer prevention per facility protocol Rehab: PT/OT Prophylaxis: GI: [ ] DVT: [ ] Code Status: Full Resuscitation Disposition: [ ] Other: Total patient care time exceeds 35 minutes excluding all procedures. Case was discussed and seen with my supervising physician. The above plan was formulated and agreed upon. LORIN CHIN PAC Nov 01, 2025 21:58
[2025-11-02] VITALS (7 sets, daily range): BP systolic 114–135; BP diastolic 67–75; PULSE 79–98; RESP 17–18; TEMP 97.6–98.3; O2SAT 97–99
[2025-11-02 05:03] LABS: ASPARTATE AMINOTRANSFERASE 40.0 U/L (10-37); CREATININE 0.7 mg/dL (0.5-1.0); GLOMERULAR FILTR. RATE CALC 114.0 mL/min (>90); GLUCOSE,RANDOM 96.0 mg/dL (70-105); SODIUM SERUM 135.0 mmol/L (136-145); TOTAL PROTEIN, SERUM 6.9 g/dL (6.0-8.3); UREA NITROGEN, BLOOD 15.0 mg/dL (7-18)
[2025-11-02 08:46] LABS: IMMATURE GRANULOCYTE ABSOLUTE 0.02 K/uL (0-1); NUCLEATED RED BLOOD CELLS 0.0 % (0.0-0.19); PLATELET COUNT (AUTO) 95 K/uL (130-400); RED BLOOD CELL COUNT(AUTO) 3.47 MIL/uL (4.00-5.50); RED CELL DISTRIBUTION WIDTH 11.9 % (11.0-15.5); WHITE BLOOD COUNT (AUTO) 9.6 K/uL (4.8-10.8)
--- NOTE | 2025-11-02 09:05 | PN ---
MASON HERNÁNDEZ N 11/02/25 0905: This is a female with no significant past medical history who presented to the hospital secondary to above pain and swelling in the left lower extremity. The patient states around two weeks ago she was spinning in the trauma to the left inner thigh while she was straining a broom. The broom had a metal wire which hit her left thigh. She initially had some ecchymosis on the left thigh and thereafter developed a swelling to the thigh area. She is able to ambulate and denies any falls with ambulation. She denies any symptoms on her right leg and denies sustaining any trauma to the right leg. She denied any melena, hematochezia, hematemesis. Denied any chest pain, shortness of breath, fever, chills. She initially seen in [facility] one week ago and was diagnosed with piriformis syndrome. Her symptoms persisted and thereafter patient came to the hospital for further evaluation. Patient did receive dose of tetanus last month. Patient's labs were notable for white count of 8.5, hemoglobin was 13.2, platelet count was 270 K, sodium was 139, potassium was 4.1, creatinine was 0.7, troponin was negative x1, lactic acid was 1.2 Patient had venous Doppler which showed no evidence of DVT in the right lower extremity. There was evidence of superficial thrombophlebitis in the greater saphenous vein in the left lower extremity. 11/01 - patient is status post left lower extremity mechanical thrombectomy with cather directed thrombolysis. Per IR, 16 Fr sheath in left popliteal vein: ongoing tPA infusion. Plan for return to label stamper today. Continue to monitor for signs of bleeding. 11/02 - Patient seen and evaluated at bedside. No overnight acute events. Heparin was held due to low fibrinogen, Repeat labs this AM show fibrinogen up from 74 to 142. Patient should be started on Eliquis 10 mg PO BID for seven days followed by 5 mg BID PO for three months. PHYSICAL EXAM GENERAL: ALERT, ORIENTED, APPEARS-NO ACUTE DISTRESS EYES: SCLERAE ANICTERIC, PUPILS EQUAL/REACTIVE, EXTRAOCULAR MUSCLES INTCT ENT/NECK: ORAL MUCOSA W/O LESIONS, OROPHARYNX IS CLEAR, NECK SUPPLE W/O MASSES RESPIRATORY: LUNGS CLEAR-AUSC/PERCUS CARDIOVASCULAR: REGULAR RATE; No REGULAR RATE; REGULAR RHYTHM; No REGULAR RHYTHM GASTROINTESTINAL: ABDOMEN IS SOFT; No ABDOMEN IS SOFT, No TENDER, No DISTENDED, No HEPATOSPLENOMEGALY; BOWEL SOUNDS PRESENT; No PALPABLE MASSES HEMATOLOGY/LYMPHATIC: No CERVICAL ADENOPATHY, No SUPRACLAVICULR ADENOPATHY, No AXILLARY ADENOPATHY, No INGUINAL ADENOPATHY MUSCULOSKELETAL: EDEMA (left thigh erythema and edema with possible insect bite ) SKIN/BREASTS: MASSES; No MASSES, No RASH, No HIVES NEUROLOGICAL: GROSSLY INTACT PSYCHOLOGICAL: MINI MENTAL ASSMT INTACT Assessment 1. DVT to the left lower extremity status post mechanical thrombectomy. 2. Left-sided cellulitis Plan 1. IR consulted, status post thrombectomy with plans to return to label stamper today. 2. There was hypersegmented neutrophils. This patient to Continue on folic acid 1 mg p.o. daily and vitamin B12 1000 mcg p.o. daily. 3. Continue antibiotic treatment as per primary. 4. After thrombectomy this patient should be on heparin per protocol with no loading dose for today then we could switch her to oral anticoagulation. This patient does not have insurance. But I have samples for Eliquis for maybe 1 month and maybe a case management could help her to get free drug for 1 months. So this patient may be could be discharged in the next 24 to 48 hours on Eliquis 10 mg p.o. twice daily for 1 week then 5 mg p.o. twice daily at least for 3 months after that. Vitals/Labs Vital Signs Date Time Temp Pulse Resp B/P (MAP) Pulse Ox O2 Delivery O2 Flow Rate FiO2 11/02/25 08:00 98.2 90 18 127/75 97 Room Air 11/01/25 20:25 0 21 Laboratory Tests 11/02/25 04:20 Medications Current Medications Lidocaine 1 patch ONCE STAT TP; Start 10/27/25 at 09:08; Stop 10/27/25 at 09:16; Status DC Ketorolac Tromethamine 30 mg ONCE ONCE IM; Start 10/27/25 at 09:30; Stop 10/27/25 at 09:16; Status DC Ceftriaxone Sodium 2 gm ONCE STAT IVPB Last administered on 10/27/25at 09:52; Start 10/27/25 at 09:15; Stop 10/27/25 at 09:18; Status DC Vancomycin HCl 1 gm ONCE STAT IV Last administered on 10/27/25at 10:53; Start 10/27/25 at 09:15; Stop 10/27/25 at 09:19; Status DC Morphine Sulfate 4 mg ONCE STAT IVP Last administered on 10/27/25at 09:52; Start 10/27/25 at 09:17; Stop 10/27/25 at 09:19; Status DC Ondansetron HCl 4 mg ONCE STAT IVP Last administered on 10/27/25at 09:51; Start 10/27/25 at 09:17; Stop 10/27/25 at 09:19; Status DC Enoxaparin Sodium 80 mg ONCE STAT SQ Last administered on 10/27/25at 11:32; Start 10/27/25 at 10:25; Stop 10/27/25 at 10:29; Status DC Famotidine 20 mg BID IV Last administered on 11/02/25at 08:52; Start 10/27/25 at 21:00; Stop 11/26/25 at 20:59 Acetaminophen 500 mg Q6H PRN PO Last administered on 10/29/25at 17:46; Start 10/27/25 at 11:30; Stop 11/26/25 at 11:29 Potassium Chloride 100 ml @ 100 mls/hr AD PRN IV; Start 10/27/25 at 11:30; Stop 11/26/25 at 11:29 Potassium Chloride 20 meq AD PRN PO; Start 10/27/25 at 11:30; Stop 11/26/25 at 11:29 Potassium Chloride 20 meq AD PRN PO; Start 10/27/25 at 11:30; Stop 11/26/25 at 11:29 Magnesium Sulfate 50 ml @ 0 mls/hr PROTOCOL PRN IV; Start 10/27/25 at 11:30; Stop 11/26/25 at 11:29 Ceftriaxone Sodium 2 gm Q24H IVPB Last administered on 11/02/25at 08:51; Start 10/28/25 at 09:00; Stop 11/07/25 at 08:59 Enoxaparin Sodium 80 mg Q12H SQ Last administered on 10/27/25at 23:38; Start 10/27/25 at 23:30; Stop 10/28/25 at 12:41; Status DC Morphine Sulfate 2 mg Q6H PRN IVP Last administered on 11/01/25at 06:01; Start 10/27/25 at 14:00; Stop 11/01/25 at 16:59; Status DC Heparin Sodium (Porcine) *calculation based on ACTUAL B... AD PRN IV; Start 10/28/25 at 13:30; Stop 10/31/25 at 18:17; Status DC Heparin Sodium/ Dextrose 250 ml @ 0 mls/hr Q6H IV Last administered on 10/31/25at 05:52; Start 10/28/25 at 13:30; Stop 10/31/25 at 18:16; Status DC Lidocaine HCl 50 ml STK-MED ONCE .ROUTE; Start 10/28/25 at 13:56; Stop 10/28/25 at 13:56; Status DC Iodixanol 100 ml STK-MED ONCE .ROUTE; Start 10/28/25 at 13:56; Stop 10/28/25 at 13:56; Status DC Heparin Sodium/ Sodium Chloride 0 ml @ As Directed STK-MED ONCE IV; Start 10/28/25 at 13:56; Stop 10/28/25 at 13:56; Status DC Neomycin/ Polymyxin/ Bacitracin 1 appl DAILY TP Last administered on 11/01/25at 09:48; Start 10/28/25 at 17:00; Stop 11/01/25 at 16:22; Status DC Iohexol 75 ml STK-MED ONCE IV; Start 10/28/25 at 18:24; Stop 10/28/25 at 18:25; Status DC Lidocaine HCl 50 ml STK-MED ONCE .ROUTE; Start 10/31/25 at 13:38; Stop 10/31/25 at 13:38; Status DC Iodixanol 100 ml STK-MED ONCE .ROUTE; Start 10/31/25 at 13:38; Stop 10/31/25 at 13:38; Status DC Heparin Sodium/ Sodium Chloride 500 ml @ As Directed STK-MED ONCE IV; Start 10/31/25 at 13:38; Stop 10/31/25 at 13:38; Status DC Fentanyl Citrate 100 mcg STK-MED ONCE .ROUTE; Start 10/31/25 at 13:43; Stop 10/31/25 at 13:43; Status DC Midazolam HCl 2 mg STK-MED ONCE .ROUTE; Start 10/31/25 at 13:43; Stop 10/31/25 at 13:43; Status DC Heparin Sodium (Porcine) 10,000 unit STK-MED ONCE .ROUTE; Start 10/31/25 at 13:44; Stop 10/31/25 at 13:44; Status DC Midazolam HCl 2 mg STK-MED ONCE .ROUTE; Start 10/31/25 at 13:56; Stop 10/31/25 at 13:56; Status DC Fentanyl Citrate 100 mcg STK-MED ONCE .ROUTE; Start 10/31/25 at 14:13; Stop 10/31/25 at 14:13; Status DC Midazolam HCl 2 mg STK-MED ONCE .ROUTE; Start 10/31/25 at 14:14; Stop 10/31/25 at 14:14; Status DC Pharmacy Profile Note 1 each ONCE MISC; Start 10/31/25 at 15:30; Stop 10/31/25 at 19:09; Status DC Alteplase, Recombinant 24 mg/ Sodium Chloride 250 ml @ 20.833 mls/ hr ONCE ONCE IV Last administered on 10/31/25at 20:08; Start 10/31/25 at 20:00; Stop 11/01/25 at 06:16; Status DC Alteplase, Recombinant 4 mg/ Sodium Chloride 250 ml @ 20.833 mls/ hr ONCE ONCE IV; Start 11/01/25 at 06:30; Stop 11/01/25 at 06:19; Status DC Alteplase, Recombinant 4 mg/ Sodium Chloride 100 ml @ 50 mls/hr ONCE ONCE IV Last administered on 11/01/25at 06:33; Start 11/01/25 at 06:30; Stop 11/01/25 at 13:10; Status DC Alteplase, Recombinant 4 mg/ Sodium Chloride 100 ml @ 25 mls/hr ONCE ONCE IV Last administered on 11/01/25at 09:35; Start 11/01/25 at 09:30; Stop 11/01/25 at 13:10; Status DC Lidocaine HCl 50 ml STK-MED ONCE .ROUTE; Start 11/01/25 at 12:02; Stop 11/01/25 at 12:02; Status DC Iodixanol 100 ml STK-MED ONCE .ROUTE; Start 11/01/25 at 12:02; Stop 11/01/25 at 12:02; Status DC Heparin Sodium/ Sodium Chloride 0 ml @ As Directed STK-MED ONCE IV; Start 11/01/25 at 12:02; Stop 11/01/25 at 12:02; Status DC Heparin Sodium/ Dextrose 250 ml @ 0 mls/hr Q6H IV; Start 11/01/25 at 15:30; Stop 12/01/25 at 15:29 PAULINE LEAL MD 11/03/25 1709: MASON HERNÁNDEZ Nov 02, 2025 09:05 PAULINE LEAL MD Nov 03, 2025 17:09
--- NOTE | 2025-11-02 11:32 | EKG ---
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
--- NOTE | 2025-11-02 16:00 | PN ---
[facility] PROGRESS NOTE Date of Service: Nov 02, 2025 Time of Service: 15:38 SUBJECTIVE: HISTORY OF PRESENT ILLNESS: This is a female with no significant past medical history who presented to the hospital secondary to above pain and swelling in the left lower extremity. The patient states around two weeks ago she was spinning in the trauma to the left inner thigh while she was straining a broom. The broom had a metal wire which hit her left thigh. She initially had some ecchymosis on the left thigh and thereafter developed a swelling to the thigh area. She is able to ambulate and denies any falls with ambulation. She denies any symptoms on her right leg and denies sustaining any trauma to the right leg. She denied any melena, hemato chezia, hematemesis. Denied any chest pain, shortness of breath, fever, chills. She initially seen in [facility] one week ago and was diagnosed with piriformis syndrome. Her symptoms persisted and thereafter patient came to the hospital for further evaluation. Patient did receive dose of tetanus last month. Patient's labs were notable for white count of 8.5, hemoglobin was 13.2, pl atelet count was 270 K, sodium was 139, potassium was 4.1, creatinine was 0.7, troponin was negative x1, lactic acid was 1.2 Patient had venous Doppler which showed no evidence of DVT in the right lower extremity. There was evidence of superficial thrombophlebitis in the greater saphenous vein in the left lower extremity. Patient received Lovenox 80 mg of the ER. Patient was admitted for further medical management. 10/28/2025: Patient was seen and evaluated this morning, no family at bedside. Patient is awake, alert, oriented x3, saturating 99% with room air. Patient complains of pain and swelling of left lower extremity. Repeat ultrasound venous Doppler of left lower extremity performed on 10/28/2025 showed acute deep venous thrombosis of common femoral vein, superficial femoral vein, popliteal vein, posterior tibial vein, deep femoral vein, and great saphenous vein. Patient was started on heparin drip, IR consultation was made for possible thrombolysis due to extensive DVT. Blood culture showed no growth after 24 hours. Continue Rocephin, Pepcid. 10/29/2025: Patient is seen and evaluated in room 407. Patient reports no concerns or complaints. She states she cannot move much because of her leg. She understands that she has a clot in her veins, which will be removed on Friday. She is currently on a heparin drip to prevent further clotting. After the procedure, she will transition to oral or injectable anticoagulation. Patient had Xulane ( 150/35) implant for contraception, which could probably be the reason for hypercoagulable state, for now we are not removing the implant as patient may bleed heavily once removed as patient is currently on heparin drip. Labs are overall within normal limits; platelet count is 260, and current APTT is 36.8, likely affected by the heparin drip. 10/30/2025: Patient evaluated this morning and found resting comfortably. Vital signs stable, though blood pressure is mildly elevated at 141/72. Left lower extremity continues to show erythema, warmth, and swelling, consistent with ongoing cellulitis and known DVT. The patient denies pain or new symptoms. She remains on a heparin drip for anticoagulation management to of her documented DVT and continues on ceftriaxone for cellulitis treatment. Blood culture remain negative with no growth to date. Laboratory results from today show: WBC 8.2, hemoglobin 11.4, platelets 248, sodium within normal limits. Tomorrow, interventional radiology is scheduled to perform catheter directed thrombolysis for her DVT. In preparation, the patient will be placed NPO tonight. 10/31/2025: Patient evaluated this morning and found resting comfortably. Vital signs stable. Her CRP levels have improved to 11.6 from 12.3 yesterday. Left lower extremity continues to show erythema, warmth, and swelling, consistent with ongoing cellulitis and known DVT. The patient denies pain or new symptoms. She remains on a heparin drip for anticoagulation management to of her documented DVT and continues on ceftriaxone for cellulitis treatment. Blood culture remain negative with no growth to date. Today she underwent thrombolysis for her DVT by interventional radiology. Per the radiologist she underwent " Mechanical lysis using an Inari device, but 10 passes made with large amount of clot removed. Some of the clots appear to be organized suggesting of acute and chronic clots. A 16-Welsh sheath was then left in the left popliteal vein and the tPA will be infused through this. The patient is to return in 24 hours. 11/01/2025: Patient evaluated this morning with family present. She underwent thrombectomy yesterday. She is recovering well after the procedure, complains of little pain, leg in a brace currently and scheduled for a venogram this afternoon. Patient's tPA has been discontinued. Dr. Avila started the patient on IV heparin today and will be started on oral heparin from tomorrow and continue it for 3 months. 11/02/2025: Patient evaluated this morning in room 301 without family present. The patient underwent mechanical thrombectomy using RE device. There was some residual clot seen, therefore tPA was infused for 21 hours. Patient then underwent left leg venogram. Patient's fibrinogen was low at 74 so heparin was not started yesterday. Today her fibrinogen has improved to 142. Per Dr. Avila she will be started on Eliquis 10 follow up mg p.o. b.i.d. for 7 days followed by Eliquis 5 mg p.o. b.i.d. for 3 months after that. Patient also has a OCP patch on her right hand, it looks like a combination of estrogen and progesterone so we are continuing the past at this time. We advised the patient to talk to her OBGYN post discharge about her OCP patch. REVIEW OF SYSTEMS CONSTITUTIONAL: Denies fevers, chills, or night sweats. No unintentional weight loss reported. NEUROLOGICAL: Denies headache, motor weakness, sensory deficit, vertigo/spinning sensation, gait abnormalities, or tremors. ENT: No hearing loss, rhinitis, rhinorrhea, hoarseness, or sore throat. CARDIOVASCULAR: Denies any exertional angina, dyspnea on exertion, orthopnea, paroxysmal nocturnal dyspnea, palpitations PULMONARY: Denies any shortness of breath, cough, phlegm/sputum, hemoptysis, pleuritic chest pain. GASTROINTESTINAL: Denies any type of dysphagia to either liquids or solids. Denies nausea, vomiting, abdominal pain, diarrhea, constipation, or changes in stool consistency or caliber. GENITOURINARY: Denies frequency, urgency, nocturia, hematuria or incontinence. ENDOCRINOLOGIC: Denies polyuria, polydipsia, polyphagia or heat/cold intolerances. DERMATOLOGIC: Denies rashes or pruritus. Musculoskeletal: Pain and swelling in the left lower extremity, improving PHYSICAL EXAM GENERAL APPEARANCE: The patient is awake, alert, and oriented, in no acute cardiopulmonary distress. NEUROLOGICAL: Cranial nerves II-XII grossly intact. Motor is 5/5 in bilateral upper and lower extremities proximal to distal. No sensory deficits. HEENT: Face is symmetric. Pupils are equal and reactive. Extraocular movements are intact. NECK: Supple. No JVD. No thyromegaly. No submental, submandibular, pre- /postauricular, occipital or supraclavicular lymphadenopathy. CHEST: Normal chest expansion. No Telemetry. LUNGS: Absence of any rales, rhonchi or any wheezing. CARDIOVASCULAR: Regular. S1 and S2 normal. No appreciable rubs, murmurs or gallops. ABDOMEN: Soft, nontender, and nondistended. There is no rebound, voluntary guarding, or rigidity. : Deferred. No [place]. EXTREMITIES: There is a small open wound in the left inner thigh. There is some induration around the inner thigh area. The left leg is also in a brace post procedure. Right leg looks okay SKIN: No skin breakdown. Vital Signs (last 8hr) Date Time Temp Pulse Resp B/P (MAP) Pulse Ox O2 Delivery O2 Flow Rate FiO2 11/02/25 11:55 97.9 84 18 135/73 99 Room Air 11/02/25 08:00 98.2 90 18 127/75 97 Room Air LABS: Laboratory: Test 11/02/25 04:20 11/01/25 14:32 11/01/25 03:30 Range/Units White Blood Count 9.6 4.8-10.8 K/uL Red Blood Count 3.47 L 4.00-5.50 MIL/uL Hemoglobin 10.3 L 12.0-16.0 g/dL Hematocrit 31.6 L 36-48 % Mean Corpuscular Volume 91.1 79-99 fL Mean Corpuscular Hemoglobin 29.7 27.0-33.0 pg Mean Corpuscular Hemoglobin Concent 32.6 32.0-36.0 g/dL Red Cell Distribution Width 11.9 11.0-15.5 % Platelet Count 95 L 130-400 K/uL Mean Platelet Volume 10.1 7.5-10.5 fL Immature Granulocyte % (Auto) 0.2 0-1 % Neutrophils (%) (Auto) 70.2 40.0-77.0 % Lymphocytes (%) (Auto) 20.0 L 21.0-51.0 % Monocytes (%) (Auto) 6.0 3.0-13.0 % Eosinophils (%) (Auto) 3.0 0.0-8.0 % Basophils (%) (Auto) 0.6 0.0-5.0 % Neutrophils # (Auto) 6.7 1.8-7.7 K/uL Lymphocytes # (Auto) 1.9 1.0-4.8 K/uL Monocytes # (Auto) 0.6 0.1-1.0 K/uL Eosinophils # (Auto) 0.29 0.00-0.70 K/uL Basophils # (Auto) 0.06 0.00-0.20 K/uL Absolute Immature Granulocyte (auto 0.02 0-1 K/uL Nucleated Red Blood Cells 0.0 0.0-0.19 % Fibrinogen 142 L 180-350 mg/dL Sodium Level 135 L 136-145 mmol/L Potassium Level 3.8 3.5-5.1 mmol/L Chloride Level 102 101-111 mmol/L Carbon Dioxide Level 25 21-32 mmol/L Blood Urea Nitrogen 15 7-18 mg/dL Creatinine 0.7 0.5-1.0 mg/dL Glomerular Filtration Rate Calc 114 >90 mL/min Random Glucose 96 70-105 mg/dL Total Calcium 8.0 L 8.5-10.1 mg/dL Total Bilirubin 0.4 0.2-1.0 mg/dL Aspartate Amino Transf (AST/SGOT) 40 H 10-37 U/L Alanine Aminotransferase (ALT/SGPT) 47 12-78 U/L Alkaline Phosphatase 80 50-136 U/L Troponin I High Sensitivity 42 4-50 ng/L C-Reactive Protein, Quantitative 46.30 H 0.5-3.0 mg/L Total Protein 6.9 6.0-8.3 g/dL Albumin 2.9 L 3.5-5.0 g/dL Prothrombin Time 14.1 #H 9.6-11.6 SEC Prothromb Time International Ratio 1.37 H 0.85-1.15 Activated Partial Thromboplast Time 30.4 26.3-35.5 SEC Total Creatine Kinase 36 # 21-232 U/L Triglycerides Level 117 30-200 mg/dL Cholesterol Level 207 H <200 mg/dL LDL Cholesterol 97 0-99 mg/dL HDL Cholesterol 80 35-85 mg/dL Current Medications Medications (Trade) Dose Ordered Sig/Tess Route PRN Reason Start Time Stop Time Status Last Admin Dose Admin Acetaminophen (TYLenol 500MG TAB) 500 mg Q6H PRN PO MILD PAIN (1-3) 10/27/25 11:30 11/26/25 11:29 10/29/25 17:46 500 MG Ceftriaxone Sodium (Rocephin 2gm Inj) 2 gm ONCE STAT IVPB 10/27/25 09:15 10/27/25 09:18 DC 10/27/25 09:52 2 GM Ceftriaxone Sodium (Rocephin 2gm Inj) 2 gm Q24H IVPB 10/28/25 09:00 11/07/25 08:59 11/02/25 08:51 2 GM Enoxaparin Sodium (Lovenox 80mg) 80 mg ONCE STAT SQ 10/27/25 10:25 10/27/25 10:29 DC 10/27/25 11:32 80 MG Enoxaparin Sodium (Lovenox 80mg) 80 mg Q12H SQ 10/27/25 23:30 10/28/25 12:41 DC 10/27/25 23:38 80 MG Famotidine (Pepcid 20mg Vial) 20 mg BID IV 10/27/25 21:00 11/26/25 20:59 11/02/25 08:52 20 MG Heparin Sodium (Porcine) (HEParin 5,000 UNIT VIAL) *calculation based on ACTUAL B... AD PRN IV HEPARIN PROTOCOL 10/28/25 13:30 10/31/25 18:17 DC Heparin Sodium/ Dextrose 250 ml @ 0 mls/hr Q6H IV 10/28/25 13:30 10/31/25 18:16 DC 10/31/25 05:52 14.98 MLS/HR Heparin Sodium/ Dextrose 250 ml @ 0 mls/hr Q6H IV 11/01/25 15:30 12/01/25 15:29 Lidocaine (Lidoderm Patch 5%) 1 patch ONCE STAT TP 10/27/25 09:08 10/27/25 09:16 DC Magnesium Sulfate 50 ml @ 0 mls/hr PROTOCOL PRN IV hypomagnesemia 10/27/25 11:30 11/26/25 11:29 Morphine Sulfate (morPHINE 2MG SYG) 2 mg Q6H PRN IVP SEVERE PAIN (7-10) 10/27/25 14:00 11/01/25 16:59 DC 11/01/25 06:01 2 MG Morphine Sulfate (morPHINE 4MG SYG) 4 mg ONCE STAT IVP 10/27/25 09:17 10/27/25 09:19 DC 10/27/25 09:52 4 MG Neomycin/ Polymyxin/ Bacitracin (Triple Antibiotic Ointment) 1 appl DAILY TP 10/28/25 17:00 11/01/25 16:22 DC 11/01/25 09:48 1 APPL Ondansetron HCl (zoFRAN 4MG INJ) 4 mg ONCE STAT IVP 10/27/25 09:17 10/27/25 09:19 DC 10/27/25 09:51 4 MG Pharmacy Profile Note (Pharmacy Communication) 1 each ONCE MISC 10/31/25 15:30 10/31/25 19:09 DC Potassium Chloride 100 ml @ 100 mls/hr AD PRN IV POTASSIUM PROTOCOL 10/27/25 11:30 11/26/25 11:29 Potassium Chloride (K-Dur/Klor-Con 20meq) 20 meq AD PRN PO POTASSIUM PROTOCOL 10/27/25 11:30 11/26/25 11:29 Potassium Chloride (KCl 10% Elixir 20meq/15ml) 20 meq AD PRN PO POTASSIUM PROTOCOL 10/27/25 11:30 11/26/25 11:29 Vancomycin HCl (Vancomycin 1g/ 250ml Kit) 1 gm ONCE STAT IV 10/27/25 09:15 10/27/25 09:19 DC 10/27/25 10:53 1 GM DIAGNOSTICS / RADIOLOGY: [ ] ASSESSMENT: Provoked Acute deep venous thrombosis of left lower extremity venous system post injury POA Left symptomatic superficial thrombophlebitis of the greater saphenous vein secondary to trauma POA Small open wound in left inner thigh secondary to trauma Possible cellulitis in the left inner thigh PLAN: Provoked Acute deep venous thrombosis of left lower extremity venous system post-injury POA Ultrasound of left lower extremity showed acute DVT of common femoral vein, superficial femoral vein, popliteal vein, posterior tibial vein, deep femoral vein, and great saphenous vein. On presentation PT 10.6, INR 1, APTT 25 Underwent Percutaneous ultrasound and fluoroscopy guided thrombectomy of left popliteal vein, left superficial femoral vein, left common femoral vein extending to left external iliac vein Followed by venogram of the left leg yesterday, tPA has been discontinued for 21 hours Starting oral heparin 10 mg b.i.d. for 7 days and then heparin 5 mg p.o. b.i.d. for 3 months Monitor APTT per protocol. Possible cellulitis in the left inner thigh Patient had injury to left inner thigh 2 weeks back, pain and swelling progressed despite anti-inflammatory medication White count on presentation 8.5, lactic acid 1.2, CRP 12.30, today white count at 9.6, and CRP at 46.30 Continue Patient on Rocephin 2 g Q 24 H IV WBC today is 9.6 GI prophylaxis with Pepcid ATTESTATION BY PHYSICIAN I have seen and examined the patient. I reviewed the documentation, medical decision making, and treatment plan as noted by the resident physician above. I agree with the findings and plan of care. Quentin López IV, MD, ABHINAV MD Nov 02, 2025 16:00
[2025-11-02 16:45] LABS: INR 1.07 (0.85-1.15)
[2025-11-03] VITALS: BP 133/73; PULSE 80; RESP 18; TEMP 98.1
[2025-11-03 04:00] VITALS: BP 123/63; PULSE 68; RESP 18; TEMP 98.5
[2025-11-03 05:30] LABS: IMMATURE GRANULOCYTE ABSOLUTE 0.03 K/uL (0-1); NUCLEATED RED BLOOD CELLS 0.0 % (0.0-0.19); PLATELET COUNT (AUTO) 113 K/uL (130-400); RED BLOOD CELL COUNT(AUTO) 3.21 MIL/uL (4.00-5.50); RED CELL DISTRIBUTION WIDTH 11.7 % (11.0-15.5); WHITE BLOOD COUNT (AUTO) 7.2 K/uL (4.8-10.8)
[2025-11-03 05:47] LABS: ASPARTATE AMINOTRANSFERASE 67.0 U/L (10-37); CREATININE 0.6 mg/dL (0.5-1.0); GLOMERULAR FILTR. RATE CALC 118.0 mL/min (>90); GLUCOSE,RANDOM 89.0 mg/dL (70-105); SODIUM SERUM 136.0 mmol/L (136-145); TOTAL PROTEIN, SERUM 6.4 g/dL (6.0-8.3); UREA NITROGEN, BLOOD 10.0 mg/dL (7-18)
[2025-11-03 08:00] VITALS: BP 111/66; PULSE 75; RESP 18; TEMP 97.9
[2025-11-03 08:39] VITALS: O2SAT 98
--- NOTE | 2025-11-03 11:24 | PN ---
MASON HERNÁNDEZ 11/03/25 1124: This is a female with no significant past medical history who presented to the hospital secondary to above pain and swelling in the left lower extremity. The patient states around two weeks ago she was spinning in the trauma to the left inner thigh while she was straining a broom. The broom had a metal wire which hit her left thigh. She initially had some ecchymosis on the left thigh and thereafter developed a swelling to the thigh area. She is able to ambulate and denies any falls with ambulation. She denies any symptoms on her right leg and denies sustaining any trauma to the right leg. She denied any melena, hematochezia, hematemesis. Denied any chest pain, shortness of breath, fever, chills. She initially seen in [facility] one week ago and was diagnosed with piriformis syndrome. Her symptoms persisted and thereafter patient came to the hospital for further evaluation. Patient did receive dose of tetanus last month. Patient's labs were notable for white count of 8.5, hemoglobin was 13.2, platelet count was 270 K, sodium was 139, potassium was 4.1, creatinine was 0.7, troponin was negative x1, lactic acid was 1.2 Patient had venous Doppler which showed no evidence of DVT in the right lower extremity. There was evidence of superficial thrombophlebitis in the greater saphenous vein in the left lower extremity. 11/01 - patient is status post left lower extremity mechanical thrombectomy with cather directed thrombolysis. Per IR, 16 Fr sheath in left popliteal vein: ongoing tPA infusion. 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 Continue to monitor for signs of bleeding. 11/02 - Patient seen and evaluated at bedside. No overnight acute events. Heparin was held due to low fibrinogen, Repeat labs this AM show fibrinogen up from 74 to 142. Patient should be started on Eliquis 10 mg PO BID for seven days followed by 5 mg BID PO for three months. 11/03 - patient seen and examined at bedside. No overnight acute events. Patient clear to be discharged on Eliquis 10 mg BID PO for remaining 7 days. Followed by 5mg BID PO for 3 months. PHYSICAL EXAM GENERAL: ALERT, ORIENTED, APPEARS-NO ACUTE DISTRESS EYES: SCLERAE ANICTERIC, PUPILS EQUAL/REACTIVE, EXTRAOCULAR MUSCLES INTCT ENT/NECK: ORAL MUCOSA W/O LESIONS, OROPHARYNX IS CLEAR, NECK SUPPLE W/O MASSES RESPIRATORY: LUNGS CLEAR-AUSC/PERCUS CARDIOVASCULAR: REGULAR RATE; No REGULAR RATE; REGULAR RHYTHM; No REGULAR RHYTHM GASTROINTESTINAL: ABDOMEN IS SOFT; No ABDOMEN IS SOFT, No TENDER, No DISTENDED, No HEPATOSPLENOMEGALY; BOWEL SOUNDS PRESENT; No PALPABLE MASSES HEMATOLOGY/LYMPHATIC: No CERVICAL ADENOPATHY, No SUPRACLAVICULR ADENOPATHY, No AXILLARY ADENOPATHY, No INGUINAL ADENOPATHY MUSCULOSKELETAL: EDEMA (left thigh erythema and edema with possible insect bite ) SKIN/BREASTS: MASSES; No MASSES, No RASH, No HIVES NEUROLOGICAL: GROSSLY INTACT PSYCHOLOGICAL: MINI MENTAL ASSMT INTACT Assessment 1. DVT to the left lower extremity status post mechanical thrombectomy. 2. Left-sided cellulitis Plan 1. 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 2. There was hypersegmented neutrophils. This patient to Continue on folic acid 1 mg p.o. daily and vitamin B12 1000 mcg p.o. daily. 3. Continue antibiotic treatment as per primary. 4. After thrombectomy this patient should be on heparin per protocol with no loading dose for today then we could switch her to oral anticoagulation. This patient does not have insurance. But I have samples for Eliquis for maybe 1 month and maybe a case management could help her to get free drug for 1 months. So this patient may be could be discharged in the next 24 to 48 hours on Eliquis 10 mg p.o. twice daily for 1 week then 5 mg p.o. twice daily at least for 3 months after that. 5. Patient is cleared from our standpoint at this time. We appreciate the consultation. Vitals/Labs Vital Signs Date Time Temp Pulse Resp B/P (MAP) Pulse Ox O2 Delivery O2 Flow Rate FiO2 11/03/25 08:39 98 Room Air* 0 21 11/03/25 08:00 97.9 75 18 111/66 Laboratory Tests 11/03/25 04:46 Medications Current Medications Lidocaine 1 patch ONCE STAT TP; Start 10/27/25 at 09:08; Stop 10/27/25 at 09:16; Status DC Ketorolac Tromethamine 30 mg ONCE ONCE IM; Start 10/27/25 at 09:30; Stop 10/27/25 at 09:16; Status DC Ceftriaxone Sodium 2 gm ONCE STAT IVPB Last administered on 10/27/25at 09:52; Start 10/27/25 at 09:15; Stop 10/27/25 at 09:18; Status DC Vancomycin HCl 1 gm ONCE STAT IV Last administered on 10/27/25at 10:53; Start 10/27/25 at 09:15; Stop 10/27/25 at 09:19; Status DC Morphine Sulfate 4 mg ONCE STAT IVP Last administered on 10/27/25at 09:52; Start 10/27/25 at 09:17; Stop 10/27/25 at 09:19; Status DC Ondansetron HCl 4 mg ONCE STAT IVP Last administered on 10/27/25at 09:51; Start 10/27/25 at 09:17; Stop 10/27/25 at 09:19; Status DC Enoxaparin Sodium 80 mg ONCE STAT SQ Last administered on 10/27/25at 11:32; Start 10/27/25 at 10:25; Stop 10/27/25 at 10:29; Status DC Famotidine 20 mg BID IV Last administered on 11/03/25at 08:28; Start 10/27/25 at 21:00; Stop 11/26/25 at 20:59 Acetaminophen 500 mg Q6H PRN PO Last administered on 10/29/25at 17:46; Start 10/27/25 at 11:30; Stop 11/26/25 at 11:29 Potassium Chloride 100 ml @ 100 mls/hr AD PRN IV; Start 10/27/25 at 11:30; Stop 11/26/25 at 11:29 Potassium Chloride 20 meq AD PRN PO; Start 10/27/25 at 11:30; Stop 11/26/25 at 11:29 Potassium Chloride 20 meq AD PRN PO; Start 10/27/25 at 11:30; Stop 11/26/25 at 11:29 Magnesium Sulfate 50 ml @ 0 mls/hr PROTOCOL PRN IV; Start 10/27/25 at 11:30; Stop 11/26/25 at 11:29 Ceftriaxone Sodium 2 gm Q24H IVPB Last administered on 11/03/25at 08:27; Start 10/28/25 at 09:00; Stop 11/07/25 at 08:59 Enoxaparin Sodium 80 mg Q12H SQ Last administered on 10/27/25at 23:38; Start 10/27/25 at 23:30; Stop 10/28/25 at 12:41; Status DC Morphine Sulfate 2 mg Q6H PRN IVP Last administered on 11/01/25at 06:01; Start 10/27/25 at 14:00; Stop 11/01/25 at 16:59; Status DC Heparin Sodium (Porcine) *calculation based on ACTUAL B... AD PRN IV; Start 10/28/25 at 13:30; Stop 10/31/25 at 18:17; Status DC Heparin Sodium/ Dextrose 250 ml @ 0 mls/hr Q6H IV Last administered on 10/31/25at 05:52; Start 10/28/25 at 13:30; Stop 10/31/25 at 18:16; Status DC Lidocaine HCl 50 ml STK-MED ONCE .ROUTE; Start 10/28/25 at 13:56; Stop 10/28/25 at 13:56; Status DC Iodixanol 100 ml STK-MED ONCE .ROUTE; Start 10/28/25 at 13:56; Stop 10/28/25 at 13:56; Status DC Heparin Sodium/ Sodium Chloride 0 ml @ As Directed STK-MED ONCE IV; Start 10/28/25 at 13:56; Stop 10/28/25 at 13:56; Status DC Neomycin/ Polymyxin/ Bacitracin 1 appl DAILY TP Last administered on 11/01/25at 09:48; Start 10/28/25 at 17:00; Stop 11/01/25 at 16:22; Status DC Iohexol 75 ml STK-MED ONCE IV; Start 10/28/25 at 18:24; Stop 10/28/25 at 18:25; Status DC Lidocaine HCl 50 ml STK-MED ONCE .ROUTE; Start 10/31/25 at 13:38; Stop 10/31/25 at 13:38; Status DC Iodixanol 100 ml STK-MED ONCE .ROUTE; Start 10/31/25 at 13:38; Stop 10/31/25 at 13:38; Status DC Heparin Sodium/ Sodium Chloride 500 ml @ As Directed STK-MED ONCE IV; Start 10/31/25 at 13:38; Stop 10/31/25 at 13:38; Status DC Fentanyl Citrate 100 mcg STK-MED ONCE .ROUTE; Start 10/31/25 at 13:43; Stop 10/31/25 at 13:43; Status DC Midazolam HCl 2 mg STK-MED ONCE .ROUTE; Start 10/31/25 at 13:43; Stop 10/31/25 at 13:43; Status DC Heparin Sodium (Porcine) 10,000 unit STK-MED ONCE .ROUTE; Start 10/31/25 at 13:44; Stop 10/31/25 at 13:44; Status DC Midazolam HCl 2 mg STK-MED ONCE .ROUTE; Start 10/31/25 at 13:56; Stop 10/31/25 at 13:56; Status DC Fentanyl Citrate 100 mcg STK-MED ONCE .ROUTE; Start 10/31/25 at 14:13; Stop 10/31/25 at 14:13; Status DC Midazolam HCl 2 mg STK-MED ONCE .ROUTE; Start 10/31/25 at 14:14; Stop 10/31/25 at 14:14; Status DC Pharmacy Profile Note 1 each ONCE MISC; Start 10/31/25 at 15:30; Stop 10/31/25 at 19:09; Status DC Alteplase, Recombinant 24 mg/ Sodium Chloride 250 ml @ 20.833 mls/ hr ONCE ONCE IV Last administered on 10/31/25at 20:08; Start 10/31/25 at 20:00; Stop 11/01/25 at 06:16; Status DC Alteplase, Recombinant 4 mg/ Sodium Chloride 250 ml @ 20.833 mls/ hr ONCE ONCE IV; Start 11/01/25 at 06:30; Stop 11/01/25 at 06:19; Status DC Alteplase, Recombinant 4 mg/ Sodium Chloride 100 ml @ 50 mls/hr ONCE ONCE IV Last administered on 11/01/25at 06:33; Start 11/01/25 at 06:30; Stop 11/01/25 at 13:10; Status DC Alteplase, Recombinant 4 mg/ Sodium Chloride 100 ml @ 25 mls/hr ONCE ONCE IV Last administered on 11/01/25at 09:35; Start 11/01/25 at 09:30; Stop 11/01/25 at 13:10; Status DC Lidocaine HCl 50 ml STK-MED ONCE .ROUTE; Start 11/01/25 at 12:02; Stop 11/01/25 at 12:02; Status DC Iodixanol 100 ml STK-MED ONCE .ROUTE; Start 11/01/25 at 12:02; Stop 11/01/25 at 12:02; Status DC Heparin Sodium/ Sodium Chloride 0 ml @ As Directed STK-MED ONCE IV; Start 11/01/25 at 12:02; Stop 11/01/25 at 12:02; Status DC Heparin Sodium/ Dextrose 250 ml @ 0 mls/hr Q6H IV; Start 11/01/25 at 15:30; Stop 11/02/25 at 17:21; Status DC Apixaban 10 mg Q12H9 PO; Start 11/02/25 at 21:00; Stop 11/02/25 at 17:38; Status DC Apixaban 10 mg Q12H9 PO Last administered on 11/03/25at 08:28; Start 11/02/25 at 21:00; Stop 11/09/25 at 09:01 PAULINE LEAL MD 11/03/25 1709: MASON HERNÁNDEZ Nov 03, 2025 11:24 PAULINE LEAL MD Nov 03, 2025 17:09
[2025-11-03 11:54] VITALS: BP 128/60; PULSE 80; RESP 18; TEMP 97.3
--- NOTE | 2025-11-03 14:20 | DS ---
Discharge Summary Hospital Course Summary: This is a female with no significant past medical history who presented to the hospital secondary to above pain and swelling in the left lower extremity. The patient states around two weeks ago she was spinning in the trauma to the left inner thigh while she was straining a broom. The broom had a metal wire which hit her left thigh. She initially had some ecchymosis on the left thigh and thereafter developed a swelling to the thigh area. She is able to ambulate and denies any falls with ambulation. She denies any symptoms on her right leg and denies sustaining any trauma to the right leg. She denied any melena, hematochezia, hematemesis. Denied any chest pain, shortness of breath, fever, chills. She initially seen in [facility] one week ago and was diagnosed with piriformis syndrome. Her symptoms persisted and thereafter patient came to the hospital for further evaluation. Patient did receive dose of tetanus last month. Patient's labs were notable for white count of 8.5, hemoglobin was 13.2, platelet count was 270 K, sodium was 139, potassium was 4.1, creatinine was 0.7, troponin was negative x1, lactic acid was 1.2 Patient had venous Doppler which showed no evidence of DVT in the right lower extremity. There was evidence of superficial thrombophlebitis in the greater saphenous vein in the left lower extremity. Patient received Lovenox 80 mg of the ER. Patient was admitted for further medical management. 10/28/2025: Patient was seen and evaluated this morning, no family at bedside. Patient is awake, alert, oriented x3, saturating 99% with room air. Patient complains of pain and swelling of left lower extremity. Repeat ultrasound venous Doppler of left lower extremity performed on 10/28/2025 showed acute deep venous thrombosis of common femoral vein, superficial femoral vein, popliteal vein, posterior tibial vein, deep femoral vein, and great saphenous vein. Patient was started on heparin drip, IR consultation was made for possible thrombolysis due to extensive DVT. Blood culture showed no growth after 24 hours. Continue Danny Calvillo. 10/29/2025: Patient is seen and evaluated in room 407. Patient reports no concerns or complaints. She states she cannot move much because of her leg. She understands that she has a clot in her veins, which will be removed on [place]. She is currently on a heparin drip to prevent further clotting. After the procedure, she will transition to oral or injectable anticoagulation. Patient had Xulane ( 150/35) implant for contraception, which could probably be the reason for hypercoagulable state, for now we are not removing the implant as patient may bleed heavily once removed as patient is currently on heparin drip. Labs are overall within normal limits; platelet count is 260, and current APTT is 36.8, likely affected by the heparin drip. 10/30/2025: Patient evaluated this morning and found resting comfortably. Vital signs stable, though blood pressure is mildly elevated at 141/72. Left lower ext remity continues to show erythema, warmth, and swelling, consistent with ongoing cellulitis and known DVT. The patient denies pain or new symptoms. She remains on a heparin drip for anticoagulation management to of her documented DVT and continues on ceftriaxone for cellulitis treatment. Blood culture remain negative with no growth to date. Laboratory results from today show: WBC 8.2, hemoglobin 11.4, platelets 248, sodium within normal limits. Tomorrow, interventional radiology is scheduled to perform catheter directed thrombolysis for her DVT. In preparation, the patient will be placed NPO tonight. 10/31/2025: Patient evaluated this morning and found resting comfortably. Vital signs stable. Her CRP levels have improved to 11.6 from 12.3 yesterday. Left lower extremity continues to show erythema, warmth, and swelling, consistent with ongoing cellulitis and known DVT. The patient denies pain or new symptoms. She remains on a heparin drip for anticoagulation management to of her documented DVT and continues on ceftriaxone for cellulitis treatment. Blood culture remain negative with no growth to date. Today she underwent thromb olysis for her DVT by interventional radiology. Per the radiologist she underwent " Mechanical lysis using an Inari device, but 10 passes made with large amount of clot removed. Some of the clots appear to be organized suggesting of acute and chronic clots. A 16-Cymraes sheath was then left in the left popliteal vein and the tPA will be infused through this. The patient is to return in 24 hours. 11/01/2025: Patient evaluated this morning with family present. She underwent thrombectomy yesterday. She is recovering well after the procedure, complains of little pain, leg in a brace currently and scheduled for a venogram this afternoon. Patient's tPA has been discontinued. Dr. Leal started the patient on IV heparin today and will be started on oral heparin from tomorrow and continue it for 3 months. 11/02/2025: Patient evaluated this morning in room 301 without family present. The patient underwent mechanical thrombectomy using RE device. There was some residual clot seen, therefore tPA was infused for 21 hours. Patient then underwent left leg venogram. Patient's fibrinogen was low at 74 so heparin was not started yesterday. Today her fibrinogen has improved to 142. Per Dr. Leal she will be started on Eliquis 10 follow up mg p.o. b.i.d. for 7 days followed by Eliquis 5 mg p.o. b.i.d. for 3 months after that. Patient also has a OCP patch on her right hand, it looks like a combination of estrogen and progesterone so we are continuing the past at this time. We advised the patient to talk to her OBGYN post discharge about her OCP patch. Histology Assistant(s): Hematology and Oncology - PAULINE LEAL MD - Pulmonary/critical care - Dr. Layne - Interventional radiologist - YAIR BEARDEN MD - Procedure(s): [place] [address] [address] IMAGING REPORT Addendum PATIENT: PADDY JOHNSON MR#: [id number] : 1990 SEX: F AGE: 35 LOCATION: [facility] ORDER 7 STATUS: ADM IN REPORT#: [id number] SERVICE 4 REASON: r/o dvt ORDERING PHYSICIAN: RAE ANTUNEZ MD PROCEDURE: VENOUS UNI - US VENOUS DOPPLER UNILATERAL ADDENDUM REPORT ADDENDUM: EXAM: US for Deep Venous Thrombosis, left Lower Extremity. CLINICAL HISTORY: Leg Pain and Swelling TECHNIQUE: Real-time ultrasound scan of the veins of the left lower extremity with color Doppler flow, spectral waveform analysis and compression. COMPARISON: None provided. FINDINGS: There is DVT within the greater saphenous, common femoral, superficial femoral (proximal, mid, and distal), popliteal, and posterior tibial veins. IMPRESSION: 1. Deep venous thrombosis involving the left greater saphenous, common femoral, superficial femoral, popliteal, and posterior tibial veins. The emergency room physician was made aware at the time of the examination. /[place] ADDENDUM: EXAM: US for Deep Venous Thrombosis, left Lower Extremity. CLINICAL HISTORY: Leg Pain and Swelling TECHNIQUE: Real-time ultrasound scan of the veins of the left lower extremity with color Doppler flow, spectral waveform analysis and compression. COMPARISON: None provided. FINDINGS: DEEP VEINS: The common femoral, superficial femoral, and popliteal veins are echolucent and compressible. There is normal color Doppler flow throughout. The visualized calf veins appear patent. Superficial thrombophlebitis within the greater saphenous vein. SOFT TISSUES: No popliteal fossa cyst or other abnormalities. IMPRESSION: 1. No deep venous thrombosis in the left lower extremity. 2. Superficial thrombophlebitis within the greater saphenous vein. The clinical team was made aware at the time of the examination. /[place] EXAM: US for Deep Venous Thrombosis, right Lower Extremity. CLINICAL HISTORY: Leg Pain and Swelling TECHNIQUE: Real-time ultrasound scan of the veins of the right lower extremity with color Doppler flow, spectral waveform analysis and compression. COMPARISON: None provided. FINDINGS: DEEP VEINS: The common femoral, superficial femoral, and popliteal veins are echolucent and compressible. There is normal color Doppler flow throughout. The visualized calf veins appear patent. Superficial thrombophlebitis within the greater saphenous vein. SOFT TISSUES: No popliteal fossa cyst or other abnormalities. IMPRESSION: 1. No deep venous thrombosis in the right lower extremity. 2. Superficial thrombophlebitis within the greater saphenous vein. The clinical team was made aware at the time of the examination. /[place] DICTATED BY: SHAVON RODRIGUEZ Jr., MD DATE: 10/28/25 150 ELECTRONICALLY SIGNED BY: DATE: EXAM: US for Deep Venous Thrombosis, right Lower Extremity. CLINICAL HISTORY: Leg Pain and Swelling TECHNIQUE: Real-time ultrasound scan of the veins of the right lower extremity with color Doppler flow, spectral waveform analysis and compression. COMPARISON: None provided. FINDINGS: DEEP VEINS: The common femoral, superficial femoral, and popliteal veins are echolucent and compressible. There is normal color Doppler flow throughout. The visualized calf veins appear patent. Superficial thrombophlebitis within the greater saphenous vein. SOFT TISSUES: No popliteal fossa cyst or other abnormalities. IMPRESSION: 1. No deep venous thrombosis in the right lower extremity. 2. Superficial thrombophlebitis within the greater saphenous vein. The clinical team was made aware at the time of the examination. /[place] DICTATED BY: SHAVON RODRIGUEZ Jr., MD DATE: 10/27/25 1200 ELECTRONICALLY SIGNED BY: SHAVON RODRIGUEZ Jr., MD DATE: 10/27/25 1200 [place] [address] IMAGING REPORT Signed PATIENT: PADDY JOHNSON MR#: [id number] : 1990 SEX: F AGE: 35 LOCATION: [facility] ORDER 1124 STATUS: ADM [facility] REPORT#: [id number] SERVICE 1119 REASON: LLE arterial doppler ORDERING PHYSICIAN: HOLDEN NERI MD PROCEDURE: ART U LE - US ARTERIAL UNILA LOW EXT DUPL Exam: Left lower extremity arterial ultrasound. 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 Dorsalis pedis artery: 70 cm/s. Waveform: Triphasic IMPRESSION: 1. No acute arterial abnormality of the left lower extremity. Normal velocities and normal triphasic waveform pattern throughout /[place] DICTATED BY: AGUILAR BELCHER MD DATE: 10/27/251649 ELECTRONICALLY SIGNED BY: AGUILAR BELCHER MD DATE: 10/27/251649 [place] [address] [id number] IMAGING REPORT Signed PATIENT: PADDY JOHNSON MR#: [id number] : 1990 SEX: F AGE: 35 [facility]ATION: [facility] ORDER 1124 STATUS: ADM IN REPORT#: [id number] SERVICE 1119 REASON: LEFT thigh trauma. Rule out frcature ORDERING PHYSICIAN: HOLDEN NERI MD PROCEDURE: FEM LT 2 - FEMUR 2 VW LEFT EXAM: CR left Femur, 4 View. CLINICAL HISTORY: LEFT thigh trauma. Rule out frcature COMPARISON: None provided. FINDINGS: BONES: No acute fracture or aggressive appearing osseous lesion. JOINTS: No dislocation. SOFT TISSUES: The soft tissues are unremarkable. IMPRESSION: No acute osseous abnormality. /[place] DICTATED BY: SHAVON RODRIGUEZ Jr., MD DATE: 10/27/251323 ELECTRONICALLY SIGNED BY: SHAVON RODRIGUEZ Jr., MD DATE: 10/27/25 132 [place] [address] [place] [address] IMAGING REPORT Addendum PATIENT: PADDY JOHNSON MR#: [id number] : 1990 SEX: F AGE: 35 LOCATION: [facility] ORDER 2300 STATUS: ADM IN REPORT#: [id number] SERVICE 0600 REASON: LL extremity DVT ORDERING PHYSICIAN: HOLDEN NERI MD PROCEDURE: VENOUS UNI - US VENOUS DOPPLER UNILATERAL ADDENDUM REPORT ADDENDUM: Results were shared by telephone at 1:13 PM EST on 10-28-2025 and acknowledged by HOLDEN Feldman. /[place] EXAM: US Duplex Left Lower Extremity Veins. CLINICAL HISTORY: To rule out DVT. TECHNIQUE: Real-time ultrasound scan of the veins of the left lower extremity with color Doppler flow, spectral waveform analysis and compression. COMPARISON: Compared with the prior venous doppler of the left lower extremity dated October 27, 2025. FINDINGS: DEEP VEINS: The left common femoral vein, the entire extent of the superficial femoral vein, the popliteal vein, posterior tibial vein, mid and distal superficial femoral vein, and deep femoral vein demonstrate loss of compressibility and augmentation. There is no flow visualized. Features are suggestive of acute deep venous thrombosis of the left lower extremity venous system. SUPERFICIAL VEINS: The great saphenous vein demonstrates loss of compressibility and augmentation. There is no flow visualized. Features are suggestive of acute deep venous thrombosis of the great saphenous vein. SOFT TISSUES: No popliteal fossa cyst or other abnormalities. IMPRESSION: 1. Acute deep venous thrombosis of the left lower extremity venous system including the common femoral vein, superficial femoral vein, popliteal vein, posterior tibial vein, deep femoral vein, and great saphenous vein. This finding is stable since the prior venous doppler of the left lower extremity dated October 27, 2025. /[place] DICTATED BY: ALYSHA LIMA MD DATE: 10/28/25 1316 ELECTRONICALLY SIGNED BY: DATE: EXAM: US Duplex Left Lower Extremity Veins. CLINICAL HISTORY: To rule out DVT. TECHNIQUE: Real-time ultrasound scan of the veins of the left lower extremity with color Doppler flow, spectral waveform analysis and compression. COMPARISON: Compared with the prior venous doppler of the left lower extremity dated October 27, 2025. FINDINGS: DEEP VEINS: The left common femoral vein, the entire extent of the superficial femoral vein, the popliteal vein, posterior tibial vein, mid and distal superficial femoral vein, and deep femoral vein demonstrate loss of compressibility and augmentation. There is no flow visualized. Features are suggestive of acute deep venous thrombosis of the left lower extremity venous system. SUPERFICIAL VEINS: The great saphenous vein demonstrates loss of compressibility and augmentation. There is no flow visualized. Features are suggestive of acute deep venous thrombosis of the great saphenous vein. SOFT TISSUES: No popliteal fossa cyst or other abnormalities. IMPRESSION: 1. Acute deep venous thrombosis of the left lower extremity venous system including the common femoral vein, superficial femoral vein, popliteal vein, posterior tibial vein, deep femoral vein, and great saphenous vein. This finding is stable since the prior venous doppler of the left lower extremity dated October 27, 2025. /[place] DICTATED BY: ALYSHA LIMA MD DATE: 10/28/251305 ELECTRONICALLY SIGNED BY: ALYSHA LIMA MD DATE: 10/28/251305 [place] [address] IMAGING REPORT Signed PATIENT: PADDY JOHNSON MR#: [id number] : 1990 SEX: F AGE: 35 LOCATION: [facility] ORDER 49 STATUS: ADM IN REPORT#: [id number] SERVICE 46 REASON: cellulitis ORDERING PHYSICIAN: NAVARRO FRIAS MD PROCEDURE: LOW EXTWWO - CT LOW EXT W/WO CONTRAST EXAMINATION: CT Left Lower Extremity without and with intravenous contrast CLINICAL HISTORY: Suspected cellulitis. TECHNIQUE: Multiphase CT of the left lower extremity performed without and with intravenous contrast. CONTRAST: Intravenous contrast administered. COMPARISON: None. FINDINGS: BONES: No acute fracture or aggressive osseous lesion. JOINTS: No joint effusion or osseous erosion. SOFT TISSUES: No discrete drainable fluid collection or abscess. No myositis or fascial involvement. Moderate diffuse subcutaneous edema involves the anterior, medial, and lateral thigh as well as the circumferential leg. Hindfoot Cutaneous thickening accompanies the edema. VASCULATURE: No deep vein thrombosis or arterial abnormality. LYMPH NODES: No inguinal lymphadenopathy. IMPRESSION:Moderate diffuse subcutaneous edema of the left thigh and leg, with cutaneous thickening of the hindfoot, consistent with cellulitis. No discrete drainable fluid collection or abscess. No acute osseous injury, soft tissue abscess, or deep vein thrombosis. /[place] DICTATED BY: STUART JAQUEZ MD DATE: 10/29/251312 ELECTRONICALLY SIGNED BY: STUART JAQUEZ MD DATE: 10/29/251312 CARDIAC CATH REPORT Name: PADDY JOHNSON Acct: [id number] MR: [id number] : 1990 Visit Date: 10/27/25 YAIR BEARDEN MD [facility] [address] [place] [id number] [facility] [address] [place] [address] CARDIAC CATHLAB REPORT Signed PATIENT: PADDY JOHNSON MR#: [id number] : 1990 SEX: F AGE: 35 LOCATION: [facility] ROOM/BED: [facility] ORDER DT: ACCESSION#: ORDER#: REPORT#: [id number] REASON: ORDERING PHYSICIAN: PROCEDURE: - STUDY: * Percutaneous ultrasound and fluoroscopy guided thrombectomy of left popliteal vein, left superficial femoral vein, left common femoral vein extending to left external iliac vein. * Venogram pre and post thrombectomy. IV conscious sedation was titrated with fentanyl 200 mcg and Versed 6 mg. DESCRIPTION OF PROCEDURE: After the patient was placed in prone position, the left popliteal vein under ultrasound guidance was accessed using a micropuncture device. Through this, attempted placement of a 16-Cymraes sheath. A venogram was performed. This demonstrated a large clot load the entire length of the left superficial femoral vein, left popliteal vein extending to left common femoral vein and external iliac vein. A 16-Cymraes Inari sheath was introduced, which was defective, was exchanged to a 13-Cymraes Inari sheath. Through this, using a 13-Cymraes Inari ClotTriever was employed over an angiographic wire and a total of 10 passes were made with large amounts of clots removed. Post removal, there is some residual clot seen. There is also the patient has a known calf pain. Therefore, we will infuse tPA 2 mg per hour for the next 24 hours and the patient is to return for a venogram. The left leg venogram demonstrates with minimal clot seen in the left superficial femoral vein, femoral vein, and iliac vein. Therefore, 13 cm length was left in place. IMPRESSION: Mechanical lysis using an Inari device, but 10 passes made with large amount of clot removed. Some of the clots appear to be organized suggesting of acute and chronic clots. A 16-Cymraes sheath was then left in the left popliteal vein and the tPA will be infused through this. The patient is to return in 24 hours. TID: [id number] RECEIPT: [id number] DICTATED BY: YAIR BEARDEN MD DATE & TIME: 10/31/25 1430 ELECTRONICALLY SIGNED BY: YAIR BEARDEN MD DATE & TIME: 11/01/25 0922 CARDIAC CATH REPORT Name: PADDY JOHNSON Acct: [id number] MR: [id number] : 1990 Visit Date: 10/27/25 YAIR BEARDEN MD [facility] [address] [place] [id number] [facility] [address] [place] [address] CARDIAC CATHLAB REPORT Signed PATIENT: PADDY JOHNSON MR#: [id number] : 1990 SEX: F AGE: 35 LOCATION: [facility] ROOM[facility]BED: [facility] ORDER DT: ACCESSION#: ORDER#: REPORT#: [id number] REASON: ORDERING PHYSICIAN: PROCEDURE: - STUDY: Left leg venogram. The patient is status post 21 hours of TPA infusion check. HISTORY: This is a 35-year-old female with left leg deep vein thrombosis. The patient underwent mechanical thrombectomy using an RE device. There is some residual clot seen, therefore TPA was infused for 21 hours. The patient is here for a check. Through the 16-Cymraes sheath, contrast was injected. The study demonstrates the left superficial femoral vein, the common femoral vein, the external iliac vein, and common iliac vein appears to be patent with no evidence of any deep vein thrombosis. Using a pursestring suture, the 16-Cymraes sheath was removed with a 3-0 silk. I would recommend TPA be discontinued and the patient be on oral anticoagulation for 1 year. TID: [id number] RECEIPT: [id number] DICTATED BY: YAIR BEARDEN MD DATE & TIME: 11/01/25 1152 ELECTRONICALLY SIGNED BY: YAIR BEARDEN MD DATE & TIME: 11/02/25 1457 Assessment/Plan: ASSESSMENT: Provoked Acute deep venous thrombosis of left lower extremity venous system post injury POA Left symptomatic superficial thrombophlebitis of the greater saphenous vein secondary to trauma POA Small open wound in left inner thigh secondary to trauma Possible cellulitis in the left inner thigh Admission Date: 10/27/2025 Discharge Date: 11/03/2025 Disposition: Home Condition: Stable Activity: As tolerated Home medications: Continued Discharge medications: Eliquis 5 mg p.o. b.i.d. for 5 days followed by Eliquis 10 mg p.o. b.i.d. for 3 months Follow-up appointment: Follow up with your PCP within 2-3 days of discharge Follow up with OBGYN within 1-2 weeks of discharge We reinforced the importance of medication adherence and follow-up appointments. Discharge Instructions: Stay active and walk daily; light activity improves the circulation Avoid prolonged sitting-get up every 1-2 hours, especially during long car rides or flights Avoid strenuous exercise, heavy lifting, or high impact activity until cleared by your doctor Elevate the affected leg when resting to reduce swelling Expect some swelling to take days to weeks to improve Avoid contact sports or activities with fall Use an electric razor instead of blade Call 911 or go to ER if you develop fever, severe abdominal pain or bloating, nausea or vomiting that does not improve, sudden shortness of breath or chest pain, if you have nosebleeds that do not stop, blood in urine or stool, vomiting or coughing up blood, easy bruising, severe headache or dizziness, any fall or head injury. Take your Eliquis anticoagulant exactly as prescribed Do not skip doses-missing doses increases the risk of another clot If you miss a dose, take it as soon as you remember unless it is closer next dose. Do not double up. Avoid taking aspirin, ibuprofen(Advil, Motrin), Naprosyn(Aleve), other NSAIDs - they increase bleeding risk investigator all healthcare providers know you are on a blood thinner Follow up with your primary care provider within 2-3 days of discharge Follow up with the OBGYN within 1-2 weeks of discharge to discuss about your oral contraceptive Home Medications: Active Scripts Apixaban (Eliquis) 5 Mg Tablet, 1 TAB PO BID for 30 Days, #60 TAB 0 Refills Take 1 tablet by mouth twice daily for DVT treatment following thrombectomy. This is the maintenance dose to begin after completing the 7-days course of 10 mg twice daily. Prov:MARTHA COOLEY MD 11/03/25 Apixaban (Eliquis) 5 Mg Tablet, 10 MG PO BID for 6 Days, #24 TAB Prov:MARTHA COOLEY MD 11/03/25 Discontinued Scripts Naproxen (Naproxen) 500 Mg Tablet, 1 TAB PO BID for pain for 7 Days, #14 TAB 0 Refills Prov:SINAN KENNY MD 10/18/25 Methocarbamol (Robaxin) 750 Mg Tab, 1 TAB PO BID for 7 Days, #14 TAB 0 Refills Prov:SINAN KENNY MD 10/18/25 Butalb/Acetaminophen/Caffeine (Esgic 50-325-40 mg Tablet) 50 Mg-325 Mg-40 Mg Tablet, 2 TAB PO Q4H for HEADACHE, #20 TAB 0 Refills TAKE TWO TABLETS BY MOUTH EVERY4 HOURS P.R.N. HEADACHE, MAXIMUM SIX TABLETS IN24 HOURS. Prov:BLANCA ESCOBEDO 12/23/24 New Medications: Apixaban (Eliquis) 5 Mg Tablet 10 MG PO BID for 6 Days, #24 TAB Apixaban (Eliquis) 5 Mg Tablet 1 TAB PO BID for 30 Days, #60 TAB 0 Refills Take 1 tablet by mouth twice daily for DVT treatment following thrombectomy. This is the maintenance dose to begin after completing the 7-days course of 10 mg twice daily. Time spent arranging discharge: 31-60 minutes ATTESTATION BY PHYSICIAN I have seen and examined the patient. I reviewed the documentation, medical decision making, and treatment plan as noted by the resident physician above. I agree with the findings and plan of care. Quentin López IV, MD, ABHINAV MD Nov 03, 2025 14:20
[2025-11-03 16:00] VITALS: BP 129/78; PULSE 79; RESP 18; TEMP 98.1
[2025-11-03 16:38] LABS: INR 1.06 (0.85-1.15)
--- NOTE | 2025-11-03 17:45 | NUR ---
DISCHARGE PT PIV DC'D PT VERBALIZED UNDERSTANDING OF DISCHARGE INSTRUCTIONS. AT BEDSIDE MADE AWARE PT HAD NO FURTHER QUESTIONS AT TIME OF DISCHARGE\ PT GATHERED AND TOOK ALL BELONGINGS
== END 2025-11-03 17:45 | disposition home or self-care (01) | DRG 271 ==
LOC: EDH 08:59 → EDHIP 09:00 → 4BH 13:00 → 2CH 10-31 16:09 → 3AH 11-01 15:40
PROVIDERS: ADMIT Internal Medicine; ATTEND Internal Medicine
PROC: 06CN3ZZ Extirpation of Matter from Left Femoral Vein, Percutaneous Approach (ICD-10-PCS; principal; 2025-10-31)
PROC: B51C1ZZ Fluoroscopy of Left Lower Extremity Veins using Low Osmolar Contrast (ICD-10-PCS; 2025-10-31)
PROC: 06CY3ZZ Extirpation of Matter from Lower Vein, Percutaneous Approach (ICD-10-PCS; 2025-10-31)
PROC: B51C1ZA Fluoroscopy of Left Lower Extremity Veins using Low Osmolar Contrast, Guidance (ICD-10-PCS; 2025-10-31)
PROC: 3E03317 Introduction of Other Thrombolytic into Peripheral Vein, Percutaneous Approach (ICD-10-PCS; 2025-10-31)
DX: I80.02 Phlebitis and thrombophlebitis of superficial vessels of left lower extremity (principal); L03.116 Cellulitis of left lower limb; Z79.01 Long term (current) use of anticoagulants; S70.12XA Contusion of left thigh, initial encounter; Z98.891 History of uterine scar from previous surgery
CPT/HCPCS: 36005; 36415; 37184; 37185; 37187; 37212; 37214; 73552; 73702; 80048; 80053; 80061; 80076; 81003; 81025; 81241; 82550; 83036; 83605; 84145; 84443; 84484; 84703; 85025; 85300; 85303; 85306; 85384; 85610; 85651; 85730; 85732; 86140; 86147; 87040; 93005; 93926; 93971; 96372; 96374; 96375; 99156; 99157; 99285; C1769; C1894; G0378; J0696; J1644; J1650; J2250; J2270; J2405; J2997; J3010; J3373; J3490; J7050; Q9967; C1757; J1308